=== PATIENT | female | born 1950 | race Caucasian/White ===

== ENCOUNTER → 2016-06-29 | Outpatient (CLI) | payer MEDICARE, OTHER ==
[~2016-06-29] MED LIST: AMLO10TA2 PO; ASPI-808 PO; ATEN50TA PO; COLC0.6T56 PO; FLUT1DIS26 IH; FURO10VI IV; LEVO75TA6 PO; LISI1TAB10 PO; METO-272 PO; METO-274 PO; NAPR500T3 PO; POTA-53 PO; RT-ALBUINH IH; RT-ALBUTEROL SULF 2.5 MG/3 ML PRE-MIX VIAL INH ONE
--- OUTSIDE RECORDS SUMMARY | 2016-06-29 11:52 | XMS REPORT | Continuity of Care Document ---
Author Author [facility] Organization [facility] Address Unknown Phone Unavailable Care Team Providers Care Unit Secy Name Role Phone Khadijah CoreasAmbrocio PCP [phone] Source Comments Some departments are not documenting in the electronic medical record. If you do not see the information that you expected, contact Release of Information in the Health Information Management department at [phone] for further assistance in locating additional records.[facility] Active Allergies and Adverse Reactions Allergen Noted Date Severity Reactions Comments Sulfa (Sulfonamide 11/25/2015 Low SEE COMMENTS Swelling throughout the Antibiotics) body Tetracycline 11/25/2015 Low UNKNOWN Current Medications Prescription Sig. Disp. Refills Start End Date Status Date metoprolol XL (TOPROL XL) Take 100 mg by mouth Active 100 mg tablet daily. metoprolol XL (TOPROL XL) Take 50 mg by mouth Active 50 mg tablet daily. lisinopril/hydrochlorothi Take by mouth daily. Active azide (ZESTORETIC) 20/25 tablet levothyroxine (SYNTHROID) Take 75 mcg by mouth Active 75 mcg tablet daily. furosemide (LASIX) 20 mg Take 20 mg by mouth as Active tablet Needed. potassium chloride SR Take 20 mEq by mouth as Active (K-DUR) 20 mEq tablet Needed. colchicine 0.6 mg tablet Take 0.6 mg by mouth as Active Needed. NAPROXEN PO Take by mouth as Needed. Active aspirin 325 mg tablet Take 325 mg by mouth Active daily. MULTIVITAMIN PO Take by mouth. Active vitamins, B complex tab Take 1 Tab by mouth Active daily. Active Problems Problem Noted Date Brain aneurysm 06/22/2016 Most Recent Encounters Date Type Specialty Providers Description 06/28/2016 Telephone Neurology Troy Cali MD Follow-up Phone Call 06/22/2016 Office Visit Neurosurgery Seun Meade MD Brain aneurysm (Primary Dx) 06/22/2016 Orders Only Neurosurgery Seun Meade MD Brain aneurysm (Primary Dx) 05/12/2016 Orders Only Neurology Troy Cali MD Cerebral aneurysm without rupture (Primary Dx) 05/11/2016 Hospital Radiology Troy Cali MD Encounter Cathy Park RN Hamblet, Lindsey 05/11/2016 Anesthesia Radiology Zahraa Khalil MD Event 04/11/2016 Telephone Radiology Tiffany García RN Social History Tobacco Use Types Packs/Day Years Used Date Current Every Day Smoker Cigarettes 1.5 50 Smokeless Tobacco: Never Used Alcohol Use Drinks/Week oz/Week Comments Yes 0 Standard 0.0 once in a while drinks or equivalent Last Filed Vital Signs Vital Sign Reading Time Taken Blood Pressure 166/71 06/22/2016 12:29 PM [employer] Pulse 55 06/22/2016 12:29 PM [employer] Temperature 37 C (98.6 F) 05/11/2016 9:42 PM [employer] Respiratory Rate - - Height 1.651 m (5' 5") 11/25/2015 8:46 AM CDT Weight 53.524 kg (118 lb) 06/22/2016 12:29 PM [employer] Body Mass Index 19.64 06/22/2016 12:29 PM [employer] Oxygen Saturation 95% 05/11/2016 9:42 PM [employer] Plan of Care Health Maintenance Due Date Last Done Comments Hepatitis C Screening 1950 Physical (Comprehensive) 02/08/1956 Exam Pertussis Vaccine 02/08/1960 Tetanus Vaccine 1966 Breast Cancer Screening 1989 Colorectal Cancer 1999 Screening Shingles Vaccine 2009 Osteoporosis Screening 2014 Prevnar/Pneumovax (#1) 2014 Influenza Vaccine 01/21/2016 Procedures from Last 3 Months Procedure Name Priority Date/Time Associated Diagnosis Comments TELEMETRY STRIPS-SCAN 05/13/2016 Results for this 12:48 PM [employer] procedure are in the results section. Results from Last 3 Months TELEMETRY STRIPS-SCAN (05/13/2016 12:48 PM) Narrative Ordered by an unspecified provider. IR ARTERIOGRAM NEURO (05/11/2016 3:51 PM) Impressions 1.Multi-lobulated, posterior pointing left P-comm artery aneurysm measuring 6.83 mm in height, 6.8 mm in width, and 3.26 mm at the neck. 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 3.Significant atherosclerotic plaquing in the origin of bilateral internal carotid arteries. 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 5.Occlusion of the right common iliac artery with filling of the proximal right lower extremity arteries from lumbar segmental artery collaterals. 6.Significant atherosclerotic disease of the left common iliac and left external iliac arteries. 7.Hypoplastic right A1 artery. I performed this procedure without the involvement of a resident or fellow. Finalized by TROY CALI M.D. on 05/12/2016 11:53 AM. Dictated by TROY CALI M.D. on 05/11/2016 4:27 PM. Narrative Cerebral Angiogram Indication - left P-comm artery aneurysm Procedures Performed 1) Right common carotid artery cervical angiogram. 2) Right common carotid cerebral angiograms x 2. 3) Right common carotid 3D cerebral angiogram. 4) Left common carotid artery cervical angiogram. 5) Left common carotid artery cerebral angiograms x 2. 6) Left common carotid artery 3D cerebral angiogram. 7) Left common femoral artery angiogram. 8) Abdominal aortic angiogram. Referring Physician - All Coreas MD Neurointerventionalist:Troy Cali MD Contrast - 210 cc [id number] Total mGy - 977.9 Anesthesia:conscious sedation Consent -The procedure and its risks, benefits, and alternative treatments were explained to the patient she understood them and she signed the consent form. Clinical History: Ms. Donis is a 66 year old female who was found to have a left P-comm artery aneurysm on a CT angiogram. She is here for a cerebral angiogram to further evaluate these findings. Description of Procedure The patient was brought to the angio suite and placed in supine position on the angio table.Bilateral groins were prepped in a standard sterile fashion. Local anesthesia was obtained with 10 cc of 1% lidocaine.Needle access was achieved into the right common femoral artery but the microwire was unable to be advanced distally. He was assumed that there is occlusion the right common femoral artery; therefore attention was given to the left groin site. Local anesthesia was obtained with 10 cc 1% lidocaine. Following this, a 5 F 25 cm sheath was placed in the left common femoral artery, establishing arterial access. RCCA Technique A 5 [place] 100 cm Vert catheter was advanced over a 150 cm 0.035 [employer] wire over the aortic arch.Due to a type III aortic arch the catheter was initially switched for a APRIL-3 catheter.Again, due to the tortuosity this catheter was switched for a 5 [place] VTK catheter which was advanced into the right common carotid artery under fluoroscopic and roadmap guidance over 260 cm Glidewire Advantage wire.Images of the right cervical carotids were obtained in biplane projections. RCCA Cervical Interpretation The angiogram demonstrated normal flow through the cervical carotids with no evidence of significant tortuosity. Significant atherosclerotic ulcerated plaque is noted in the proximal right internal carotid artery with no evidence of significant stenosis. While catheterizing the right common carotid artery it was noted that she has a type III aortic arch. RCCA Cerebral Interpretation So as not to traverse the atherosclerotic plaque the right anterior intracranial circulation was visualized from a right common carotid artery angiogram in biplane projections. The angiogram demonstrated normal antegrade flow into the right middle cerebral artery territory. Less robust flow is seen into the right anterior cerebral artery circulation due to a hypoplastic right A1 artery.A right MCA aneurysm is seen measuring 3.22 mm at the neck and 1.88 mm height, with the inferior M2 artery incorporated into the neck of the aneurysm.Significant tortuosity is noted in the laceral and cavernous segments of the right internal carotid artery.The capillary and venous phases are unremarkable. RCCA 3D Angiogram Technique The catheter was attached to the contrast power injector and a right common carotid artery 3D cerebral angiogram was performed. RCCA 3D Angiogram Interpretation The angiogram demonstrated a right MCA aneurysm measuring 3.22 mm at the neck and 1.88 mm height, with the inferior M2 artery incorporated into the neck of the aneurysm. LCCA Technique The catheter was withdrawn out of the right common carotid artery and the left common carotid artery.Due to a bovine, type 3 aortic arch arch this catheter was exchanged for Sim-1 catheter which was shaped under fluoroscopic guidance in the descending aorta. Due to the severe tortuosity the catheter was only able to be advanced into the mid left common carotid artery despite using multiple wires.Images of the left cervical carotids were obtained in biplane projections. LCCA Cervical Interpretation The angiogram demonstrated normal flow through the cervical carotids. Significant atherosclerotic ulcerative plaque is noted in the proximal left internal carotid artery with significant stenosis noted in the chandu-laceral segment. LCCA Cerebral Interpretation Due to the significant tortuosity the catheter was unable to be advanced into the left internal carotid artery; therefore, the left anterior intracranial circulation was visualized from a left common carotid artery angiogram in biplane projections.The angiogram demonstrated normal antegrade flow into the left middle and bilateral anterior cerebral arteries.A multi-lobulated, posterior pointing left P-comm artery aneurysm is seen measuring 6.83 mm in height, 6.8 mm in width, and 3.26 mm at the neck.Atherosclerotic irregularity is noted in the proximal cavernous segment of the left internal carotid artery.The capillary and venous phases are unremarkable. LCCA 3D Angiogram Technique The catheter was attached to the contrast power injector and a left common carot id artery 3D cerebral angiogram was performed. LCCA 3D Angiogram Interpretation The angiogram demonstrated a multi-lobulated, posterior pointing left P-comm artery aneurysm measuring 6.83 mm in height, 6.8 mm in width, and 3.26 mm at the neck. After reviewing the final images, the catheter was removed and a left common femoral artery angiogram was performed.The angiogram demonstrated the access site at the level of the bifurcation.The catheter is partially occlusiveand significant atherosclerotic disease is seen in the left external iliac artery; therefore, hemostasis was achieved using manual pressure for 20 minutes. Abdominal Aorta Angiogram Technique The sheath was advanced over the wire and an abdominal aortic angiogram was performed in the anterior projection. Abdominal Aorta Angiogram Interpretation The angiogram demonstrated significant atherosclerotic disease in the left common iliac artery and left external iliac artery. Occlusion of the right common iliac artery is seen with filling of the right lower extremity arterial flow from lumbar segmental artery collaterals. The patient was transported to the recovery unit in stable clinical and hemodynamic conditions. Complications - none immediate Procedure Note Interface, Radiant Results - Tiffany May 12, 2016 11:56 AM [employer] Cerebral Angiogram Indication - left P-comm artery aneurysm Procedures Performed 1) Right common carotid artery cervical angiogram. 2) Right common carotid cerebral angiograms x 2. 3) Right common carotid 3D cerebral angiogram. 4) Left common carotid artery cervical angiogram. 5) Left common carotid artery cerebral angiograms x 2. 6) Left common carotid artery 3D cerebral angiogram. 7) Left common femoral artery angiogram. 8) Abdominal aortic angiogram. Referring Physician - All Coreas MD Neurointerventionalist: Troy Cali MD Contrast - 210 cc [id number] Total mGy - 977.9 Anesthesia: conscious sedation Consent - The procedure and its risks, benefits, and alternative treatments were explained to the patient she understood them and she signed the consent form. Clinical History: Ms. Donis is a 66 year old female who was found to have a left P-comm artery aneurysm on a CT angiogram. She is here for a cerebral angiogram to further evaluate these findings. Description of Procedure The patient was brought to the angio suite and placed in supine position on the angio table. Bilateral groins were prepped in a standard sterile fashion. Local anesthesia was obtained with 10 cc of 1% lidocaine. Needle access was achieved into the right common femoral artery but the microwire was unable to be advanced distally. He was assumed that there is occlusion the right common femoral artery; therefore attention was given to the left groin site. Local anesthesia was obtained with 10 cc 1% lidocaine. Following this, a 5 F 25 cm sheath was placed in the left common femoral artery, establishing arterial access. RCCA Technique A 5 [place] 100 cm Vert catheter was advanced over a 150 cm 0.035 [employer] wire over the aortic arch. Due to a type III aortic arch the catheter was initially switched for a APRIL-3 catheter. Again, due to the tortuosity this catheter was switched for a 5 [place] VTK catheter which was advanced into the right common carotid artery under fluoroscopic and roadmap guidance over 260 cm Glidewire Advantage wire. Images of the right cervical carotids were obtained in biplane projections. RCCA Cervical Interpretation The angiogram demonstrated normal flow through the cervical carotids with no evidence of significant tortuosity. Significant atherosclerotic ulcerated plaque is noted in the proximal right internal carotid artery with no evidence of significant stenosis. While catheterizing the right common carotid artery it was noted that she has a type III aortic arch. RCCA Cerebral Interpretation So as not to traverse the atherosclerotic plaque the right anterior intracranial circulation was visualized from a right common carotid artery angiogram in biplane projections. The angiogram demonstrated normal antegrade flow into the right middle cerebral artery territory. Less robust flow is seen into the right anterior cerebral artery circulation due to a hypoplastic right A1 artery. A right MCA aneurysm is seen measuring 3.22 mm at the neck and 1.88 mm height, with the inferior M2 artery incorporated into the neck of the aneurysm. Significant tortuosity is noted in the laceral and cavernous segments of the right internal carotid artery. The capillary and venous phases are unremarkable. RCCA 3D Angiogram Technique The catheter was attached to the contrast power injector and a right common carotid artery 3D cerebral angiogram was performed. RCCA 3D Angiogram Interpretation The angiogram demonstrated a right MCA aneurysm measuring 3.22 mm at the neck and 1.88 mm height, with the inferior M2 artery incorporated into the neck of the aneurysm. LCCA Technique The catheter was withdrawn out of the right common carotid artery and the left common carotid artery. Due to a bovine, type 3 aortic arch arch this catheter was exchanged for Sim-1 catheter which was shaped under fluoroscopic guidance in the descending aorta. Due to the severe tortuosity the catheter was only able to be advanced into the mid left common carotid artery despite using multiple wires. Images of the left cervical carotids were obtained in biplane projections. LCCA Cervical Interpretation The angiogram demonstrated normal flow through the cervical carotids. Significant atherosclerotic ulcerative plaque is noted in the proximal left internal carotid artery with significant stenosis noted in the chandu-laceral segment. LCCA Cerebral Interpretation Due to the significant tortuosity the catheter was unable to be advanced into the left internal carotid artery; therefore, the left anterior intracranial circulation was visualized from a left common carotid artery angiogram in biplane projections. The angiogram demonstrated normal antegrade flow into the left middle and bilateral anterior cerebral arteries. A multi-lobulated, posterior pointing left P-comm artery aneurysm is seen measuring 6.83 mm in height, 6.8 mm in width, and 3.26 mm at the neck. Atherosclerotic irregularity is noted in the proximal cavernous segment of the left internal carotid artery. The capillary and venous phases are unremarkable. LCCA 3D Angiogram Technique The catheter was attached to the contrast power injector and a left common carotid artery 3D cerebral angiogram was performed. LCCA 3D Angiogram Interpretation The angiogram demonstrated a multi-lobulated, posterior pointing left P-comm artery aneurysm measuring 6.83 mm in height, 6.8 mm in width, and 3.26 mm at the neck. After reviewing the final images, the catheter was removed and a left common femoral artery angiogram was performed. The angiogram demonstrated the access site at the level of the bifurcation. The catheter is partially occlusive and significant atherosclerotic disease is seen in the left external iliac artery; therefore, hemostasis was achieved using manual pressure for 20 minutes. Abdominal Aorta Angiogram Technique The sheath was advanced over the wire and an abdominal aortic angiogram was performed in the anterior projection. Abdominal Aorta Angiogram Interpretation The angiogram demonstrated significant atherosclerotic disease in the left common iliac artery and left external iliac artery. Occlusion of the right common iliac artery is seen with filling of the right lower extremity arterial flow from lumbar segmental artery collaterals. The patient was transported to the recovery unit in stable clinical and hemodynamic conditions. Complications - none immediate IMPRESSION 1. Multi-lobulated, posterior pointing left P-comm artery aneurysm measuring 6.83 mm in height, 6.8 mm in width, and 3.26 mm at the neck. 2. 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 3. Significant atherosclerotic plaquing in the origin of bilateral internal carotid arteries. 4. 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 5. Occlusion of the right common iliac artery with filling of the proximal right lower extremity arteries from lumbar segmental artery collaterals. 6. Significant atherosclerotic disease of the left common iliac and left external iliac arteries. 7. Hypoplastic right A1 artery. I performed this procedure without the involvement of a resident or fellow. Finalized by TROY CALI M.D. on 05/12/2016 11:53 AM. Dictated by TROY CALI M.D. on 05/11/2016 4:27 PM.
== END ==
LOC: RT 11:48
PROVIDERS: ATTEND Nurse Practitioner Family
DX: R06.00 Dyspnea, unspecified (principal); J44.9 Chronic obstructive pulmonary disease, unspecified; Z72.0 Tobacco use
CPT/HCPCS: 94060; 94640; 94726; 94729

== ENCOUNTER → 2017-06-19 | Outpatient (CLI) | payer MEDICARE, OTHER ==
[~2017-06-19] MED LIST changes: -METO-272 PO; -METO-274 PO; +METO-370 PO; +METO-395 PO; -NAPR500T3 PO; +NAPR500T4 PO; -RT-ALBUTEROL SULF 2.5 MG/3 ML PRE-MIX VIAL INH ONE
--- NOTE | 2017-06-19 09:56 | Diagnostic Imaging Report ---
INDICATION: History of smoking. Screening exam. COMPARISON: 07/07/2015 TECHNIQUE: Noncontrast low-dose CT of the chest was performed. FINDINGS: Evaluation of the lung cates demonstrates mild to moderate scattered areas of air-trapping consistent with background of COPD. There is no focal consolidation, pleural effusion, nor pneumothorax. Mild scarring and/or atelectasis is noted within both lung bases. There is faint 2 mm micronodule within the medial margins of the superior segment of the left lower lobe (image 118, series 4). This however appears to be stable when compared to 07/07/2015 (image 65, series 4). No other pulmonary nodules or masses are identified. Cardiomediastinal structures are suboptimally evaluated secondary to low dose noncontrast nature of the exam. There is however marked calcified aortic and coronary calcified atherosclerosis. Heart size is within normal limits. There is no large pericardial effusion. No pathologically enlarged or morphologically abnormal adenopathy is seen within the mediastinum, amita, nor axilla on this exam. Bony structures show age-related degenerative changes. No acute abnormalities are seen. Included portion of the upper abdomen are unremarkable as well. IMPRESSION: 1. Single small micronodule within the superior segment of the left upper lobe. Again, this is stable compared to 07/07/2015. Continued annual screening with low-dose CT chest is recommended. 2. Severe calcified aortic and coronary atherosclerosis. 3. Background of mild to moderate emphysematous disease. LungRads category: 2S MODIFIER: Severe calcified aortic and coronary atherosclerosis. OTHER SIGNIFICANT FINDINGS: As above. Dictated by: Dictated on workstation # [id number]
== END ==
LOC: RAD 08:04
PROVIDERS: ATTEND Nurse Practitioner Family
DX: Z12.2 Encounter for screening for malignant neoplasm of respiratory organs (principal); I25.10 Atherosclerotic heart disease of native coronary artery without angina pectoris; I70.0 Atherosclerosis of aorta; Z87.891 Personal history of nicotine dependence

== ENCOUNTER → 2019-09-07 | Outpatient (CLI) | payer OTHER, MEDICARE ==
[~2019-09-07] MED LIST changes: -AMLO10TA2 PO; +AMLO10TA7 PO; -LISI1TAB10 PO; +LISI1TAB26 PO; -METO-370 PO; -METO-395 PO; +METO50TA7 PO; +MTP100TCR PO; +NAPR-915 PO; -NAPR500T4 PO
== END ==
LOC: LABNPT 08:33
DX: Z01.89 Encounter for other specified special examinations (principal)
CPT/HCPCS: 84145

== ENCOUNTER 2021-07-24 12:49 | Inpatient (IN) | payer MEDICARE, OTHER ==
[~2021-07-24] VITALS: Ht 170 cm; Wt 58.7 kg
[~2021-07-24 12:49] MED LIST changes: +AMLO-251 PO; -AMLO10TA7 PO; -COLC0.6T56 PO; +COLC0.6T59 PO; -LISI1TAB26 PO; +LISI1TAB48 PO
[2021-07-24] MEDS ORDERED: ONDANSETRON 4 MG (ZOFRAN) ORAL DISSOLVE TAB PO PRN (13:15)
[2021-07-24] MEDS ORDERED: diphenhydrAMINE 50 MG/ML INJ (BENADRYL) IVP PRN (13:15)
[2021-07-24] MEDS ORDERED: HALOPERIDOL 5 MG/ML (HALDOL) VIAL IM PRN (13:15)
[2021-07-24] MEDS ORDERED: MILK OF MAGNESIA 400 MG/5 ML 30 ML UDC PO PRN (13:15)
[2021-07-24] MEDS ORDERED: LORazepam 1 MG (ATIVAN) TAB PO PRN (13:15)
[2021-07-24] MEDS ORDERED: LORazepam INJ 2 MG/ML (ATIVAN) VIAL IM/IV PRN (13:15)
[2021-07-24] MEDS ORDERED: CALCIUM CARBONATE 500 MG (TUMS) TAB.CHEW PO PRN (13:15)
[2021-07-24] MEDS ORDERED: BISACODYL 10 MG SUPP (DULCOLAX) PR PRN (13:15)
[2021-07-24] MEDS ORDERED: D5 1/2 NS 1000 ML IV SOLUTION 1,000 ML IV PRN (13:15)
[2021-07-24] MEDS ORDERED: ACETAMINOPHEN 325 MG TABLET PO PRN (13:15)
[2021-07-24] MEDS ORDERED: 1/2 NS IV SOLUTION 1,000 ML IV PRN (13:15)
[2021-07-24] MEDS ORDERED: ANTACID SUSP 30 ML UDC (MYLANTA) PO PRN (13:15)
[2021-07-24] MEDS ORDERED: LACTULOSE SYRUP 10GM/15ML (ENULOSE) 30ML UDC PO PRN (13:15)
[2021-07-24] MEDS ORDERED: diphenhydrAMINE 25 MG TAB (BENADRYL) PO PRN (13:15)
[2021-07-24] MEDS ORDERED: MELATONIN 3 MG TABLET PO PRN (13:15)
[2021-07-24] MEDS ORDERED: ONDANSETRON 4 MG/2 ML (SDV) Z0FRAN IV PRN (13:15)
[2021-07-24] MEDS ORDERED: polyethylene glycoL POWDER 17 GM (MIRALAX) PACK PO PRN (13:15)
[2021-07-24] MEDS ORDERED: NS IV 1000 ML 1,000 ML ONE (14:57)
[2021-07-24] MEDS ORDERED: NS IV 1000 ML 1,000 ML IV SCH (15:00)
--- NOTE | 2021-07-24 15:10 | Tele-ICU Consult ---
History of Present Illness History of Present Illness Date Seen by Provider: Jul 24, 2021 Time Seen by Provider: 14:40 Date of Admission This virtual visit was conducted using real time audio/video. Thank you for asking us to see this patient for respiratory insufficiency due to COPD. Admitted w Afib/RVR PMH: COPD, CAD/NSTEMI, HTN, Gout. SH: smoking history Y FH: Non-contributory ROS: limited by patient's clinical condition, but PE: [id number] 73/47. O2 sat 97% on NC HEENT: No obvious masses, adenopathy or JVD. Chest: clear to auscultation. CV: Irreg S1 S2 No murmur or added sounds. Abd: Non-tender. Bowel sounds Y. : Unremarkable. [place] . [employer]OCIATE/psychiatric: Grossly intact. No obvious focal findings. Extremities: No edema. Capillary refill < 3 seconds. Skin: unremarkable. Results: None currently available. Available chart/ vitals / labs / images reviewed. Video assessment done using teleICU camera, rest of exam as per RN. A/P: Respiratory insufficiency: Continue present management with Advair, NC, duonebs, Medrol. Monitor for increasing oxygenation needs and/or need for intubation. Critical Care: critically ill patient. Cont. IV Diltiazem, abx, Angy. Bolus 1 L NS for low BP. To receive a CVC. Discussed with SHIRLEY Nino. Asked RN to reach out to eICU if any questions or concerns later. Time spent with patient/coordination of care with other health professionals (mins): 30 Allergies and Home Medications Allergies Coded Allergies: Sulfa (Sulfonamide Antibiotics) (Verified Allergy, Unknown, 07/07/15) Tetracyclines (Verified Allergy, Unknown, 07/07/15) Home Medications Albuterol Sulfate 8.5 Gm Hfa.aer.ad, 8.5 GM IH PRN 2 puffs every 4hrs as needed for SOB Prescribed by: CHELSIE ALEGRE on 07/13/15 0833 Aspirin 325 Mg Tablet, 325 MG PO DAILY, (Reported) Colchicine 0.6 Mg Tablet, PO UD PRN for GOUT PAIN, (Reported) TAKES 2 (0.6MG) TABLETS AT ONSET OF FLARE UP THEN TAKES 1 (0.6MG) TABLET EVERY 12 HOURS UNTIL RESOLVED. Fluticasone/Salmeterol 1 Each Blst.w.dev, 1 EACH IH BID Prescribed by: CHELSIE ALEGRE on 07/13/15 0832 Furosemide 10 Mg/1 Ml Vial, 20 MG IV DAILY@07,17 Prescribed by: TRES GASCA on 07/13/15 08 Levothyroxine Sodium 75 Mcg Tablet, 75 MCG PO DAILY, (Reported) Lisinopril/Hydrochlorothiazide 1 Each Tablet, 1 TAB PO DAILY, (Reported) Metoprolol Succinate 100 Mg Tab.er.24h, 150 MG PO DAILY Prescribed by: TRES GASCA on 07/13/15827 Potassium Chloride 20 Meq Tablet.er, 20 MEQ PO DAILY Prescribed by: TRES GASCA on 07/13/15827 Past Medical/Social/Family Hx Immunizations Up To Date Influenza Vaccine Up-to-Date: No; Not Current Current Status Communicates: Verbally Primary Language: Iranian Preferred Spoken Language: Iranian Is interpretation needed?: No Review of Systems Constitutional: see HPI EENTM: see HPI Respiratory: see HPI Cardiovascular: see HPI Gastrointestinal: see HPI Genitourinary: see HPI Musculoskeletal: see HPI Skin: see HPI Psychiatric/Neurological: See HPI All Other Systems Reviewed Negative Unless Noted: Yes Focused Exam Height, Weight, BMI Height: 5'67.00" Weight: 131lbs. 2.0oz. 59.046605uj; 18.33 BMI Method: Exam Exam Patient acknowledged, consented, and participated in this virtual visit which was conducted using real time audio/video Vital Signs Date Time Temp Pulse Resp B/P (MAP) Pulse Ox O2 Delivery O2 Flow Rate FiO2 07/24/21 14:54 36.8 130 17 83/70 96 Nasal Cannula 5.00 Height & Weight Height: 5'67.00" Weight: 131lbs. 2.0oz. [id number]; 18.33 BMI Method: General Appearance: Mild Distress (See free text) Respiratory: Decreased Breath Sounds Capillary Refill: Less Than 3 Seconds Peripheral Pulses: 1+ Dorsalis Pedis (R), 1+ Left Dors-Pedis (L) Assessment/Plan Assessment/Plan See free text Critical Care: Critically Ill Patient JUAN DIEGO STATON MD Jul 24, 2021 15:10
[2021-07-24 15:12] LABS: BASOPHILS % (AUTO) 0 % (0-10); EOSINOPHILS % (AUTO) 0 % (0-10); HEMATOCRIT 27 % (35-52); HEMOGLOBIN 8.7 g/dL (11.5-16.0); LYMPHOCYTES # (AUTO) 1.1 X 10^3 (1.0-4.0); LYMPHOCYTES % (AUTO) 12 % (12-44); MEAN CORPUSCULAR HEMOGLOBIN 31 pg (25-34); MEAN CORPUSCULAR HGB CONC 33 g/dL (32-36); MEAN CORPUSCULAR VOLUME 95 fL (80-99); MEAN PLATELET VOLUME 9.9 fL (9.0-12.2); MONOCYTES # (AUTO) 0.6 X 10^3 (0.0-1.0); MONOCYTES % (AUTO) 7 % (0-12); NEUTROPHILS # (AUTO) 7.4 X 10^3 (1.8-7.8); NEUTROPHILS % (AUTO) 81 % (42-75); PLATELET COUNT 182 10^3/uL (130-400); WHITE BLOOD COUNT 9.2 10^3/uL (4.3-11.0)
[2021-07-24] MEDS: dilTIAZem DRIP PRE-MIX 125 ML IV SCH ×2 (15:29→23:52)
[2021-07-24 15:30] LABS: ALBUMIN 2.9 GM/DL (3.2-4.5); CHLORIDE 99 MMOL/L (98-107); POTASSIUM 3.3 MMOL/L (3.6-5.0); SODIUM 134 MMOL/L (135-145)
[2021-07-24 15:31] LABS: CALCIUM 8.4 MG/DL (8.5-10.1)
[2021-07-24 15:32] LABS: GLUCOSE 106 MG/DL (70-105); TOTAL PROTEIN 5.3 GM/DL (6.4-8.2)
[2021-07-24 15:33] LABS: CARBON DIOXIDE 23 MMOL/L (21-32)
[2021-07-24 15:34] LABS: BILIRUBIN,TOTAL 0.6 MG/DL (0.1-1.0)
[2021-07-24 15:35] LABS: ALKALINE PHOSPHATASE 56 U/L (40-136)
[2021-07-24 15:36] LABS: CREATININE SERUM 0.52 MG/DL (0.60-1.30); GFR ESTIMATED 99
[2021-07-24 15:37] LABS: BUN/CREATININE RATIO 13
[2021-07-24 15:39] LABS: ALANINE AMINOTRANSFERASE 14 U/L (0-55)
[2021-07-24] MEDS: ENOXAPARIN 60 MG/0.6 ML (LOVENOX) SYR SC SCH (15:45)
--- NOTE | 2021-07-24 16:10 | Progress Note-Post Operative ---
Post-Operative Progess Note Surgeon (s)/Director Of Laboratory Operations (s) Surgeon DEEPTI FORD DO Director Of Laboratory Operations: none Pre-Operative Diagnosis Venous insufficiency, SVT Post-Operative Diagnosis same Procedure & Operative Findings Date of Procedure 07/24/21 Procedure Performed/Findings Central Line -Triple lumen catheter The patient was in their bed in the ICU, was prepped and draped in the sterile fashion. A surgical pause was performed. Ultrasound was used to locate the internal jugular vein. Lidocaine was injected over the vein and an 18 gauge finder needle was advanced while watching with the US; the left internal jugular vein was accessed. Dark nonpulsatile blood was withdrawn. The wire was inserted. Fluoroscopy assured proper placement. The needle was removed. A [#11] blade scalpel was used to make a stab incision along the guidewire. Dilator sheath was then advanced over the wire using Seldinger technique and the dilator was removed. The Groshong catheter was inserted over the guide wire using the Seldinger technique. The Groshong wire was removed. The catheter was then accessed in all three ports without difficulty. Good flash of blood was seen and it was then flushed with saline. The catheter was sutured in place with 3-0 silk on a yesi needle. The areas were then washed and dried. Sterile dressing was placed over incision. The patient tolerated the procedure well without complication. Anesthesia Type local lidocaine Estimated Blood Loss Estimated blood loss (mL): scant Specimens/Packing Specimens Removed DEEPTI Michael DO Jul 24, 2021 16:10
[2021-07-24] MEDS: LORazepam INJ 2 MG/ML (ATIVAN) VIAL IV PRN (16:13)
[2021-07-24] MEDS: NS IV 1000 ML 1,000 ML IV SCH (16:15)
[2021-07-24] MEDS ORDERED: DIGOXIN 0.25 MG/ML (LANOXIN) 2 ML AMP ONE (16:15)
--- NOTE | 2021-07-24 16:17 | Consultation - Surgery ---
History of Present Illness History of Present Illness Patient Consulted On(donna/time) 07/24/21 16:11 Time Seen by Provider: 15:02 History of Present Illness Pt is a 71 yo female who was transferred to ICU from [place]. She was transferred for cardiac issues; I was told SVT but may have been Afib with RVR. Unable to get good IV access and she was going to need multiple meds. Surgery asked to place central line. Allergies and Home Medications Allergies Coded Allergies: Sulfa (Sulfonamide Antibiotics) (Verified Allergy, Unknown, 07/07/15) Tetracyclines (Verified Allergy, Unknown, 07/07/15) Patient Home Medication List Home Medication List Reviewed: Yes Albuterol Sulfate (Proair Hfa) 8.5 Gm Hfa.aer.ad, 8.5 GM IH PRN Prescribed by: CHELSIE ALEGRE on 07/13/15 0833 Aspirin (Aspirin) 325 Mg Tablet, 325 MG PO DAILY, (Reported) Entered as Reported by: RAFAEL SMALL on 07/08/15 0332 Colchicine (Colchicine) 0.6 Mg Tablet, PO UD PRN for GOUT PAIN, (Reported) Entered as Reported by: DAYTON MARQUES on 07/08/15 1121 Fluticasone/Salmeterol (Advair 250-50 Diskus) 1 Each Blst.w.dev, 1 EACH IH BID Prescribed by: CHELSIE ALEGRE on 07/13/15 0832 Furosemide (Furosemide) 10 Mg/1 Ml Vial, 20 MG IV DAILY@,17 Prescribed by: TRES GASCA on 07/13/15 0828 Levothyroxine Sodium (Levothyroxine Sodium) 75 Mcg Tablet, 75 MCG PO DAILY, (Reported) Entered as Reported by: RAFAEL SMALL on 07/08/15 033 Lisinopril/Hydrochlorothiazide (Lisinopril-Hctz 20-25 mg Tab) 1 Each Tablet, 1 TAB PO DAILY, (Reported) Entered as Reported by: RAFAEL SMALL on 07/08/15 0332 Metoprolol Succinate (Metoprolol Succinate) 100 Mg Tab.er.24h, 150 MG PO DAILY Prescribed by: TRES GASCA on 07/13/15 0828 Potassium Chloride (K-Tab ER) 20 Meq Tablet.er, 20 MEQ PO DAILY Prescribed by: TRES GASCA on 07/13/15 0828 Past Ucexpex-Ppuudg-Nrszif Hx Patient Social History Smoking Status: Current Everyday Smoker Type Used: Cigarettes Alcohol Use?: No Surgeries History of Surgeries: Yes Respiratory History of Respiratory Disorde: Yes Respiratory Disorders: COPD Cardiovascular History of Cardiac Disorders: Yes Cardiac Disorders: Atrial Fibrillation, Hypertension, Palpitations Neurological History of Neurological Disord: No Reproductive System Hx Reproductive Disorders: No Musculoskeletal History of Musculoskeletal Dis: Yes Musculoskeletal Disorders: Arthritis, Gout Endocrine History of Endocrine Disorders: Yes Endocrine Disorders: Hypothyroidsim HEENT Hearing Impairment: Hard of Hearing Cancer History of Cancer: No Blood Transfusions Adverse Reaction to a Blood Tr: No Reviewed Nursing Assessment Reviewed/Agree w Nursing PMH: No Family Medical History Significant Family History: No Pertinent Family Hx Family Medial History: Patient reports no known family medical history. Review of Systems-General Constitutional: malaise, weakness EENTM: mouth pain, mouth swelling Respiratory: dyspnea on exertion; No hemoptysis Cardiovascular: No chest pain; palpitations Gastrointestinal: No dysphagia, No hematemesis Musculoskeletal: gout, joint pain, joint swelling Physical Exam-General Problems Physical Exam Vital Signs Vital Signs - First Documented 07/24/21 14:54 Temp 36.8 Pulse 130 Resp 17 B/P (MAP) 83/70 Pulse Ox 96 O2 Delivery Nasal Cannula O2 Flow Rate 5.00 Capillary Refill : Less Than 3 Seconds General Appearance: WD/WN, mild distress Eyes: Bilateral Eye PERRL, Bilateral Eye EOMI HEENT: pharynx normal Neck: supple Respiratory: lungs clear, no respiratory distress, no accessory muscle use, crackles Cardiovascular: no murmur, tachycardia, irregularly irregular Gastrointestinal: soft, no organomegaly, no pulsatile mass Back: no CVA tenderness, no vertebral tenderness Extremities: no pedal edema, no calf tenderness Neurologic/Psychiatric: mink slicer II-XII nml as tested, alert, oriented x 3 Skin: normal color, warm/dry Data Review Labs Laboratory Tests 07/24/21 15:00: White Blood Count 9.2, Red Blood Count 2.82L, Hemoglobin 8.7L, Hematocrit 27L, Mean Corpuscular Volume 95, Mean Corpuscular Hemoglobin 31, Mean Corpuscular Hemoglobin Concent 33, Red Cell Distribution Width 15.0H, Platelet Count 182, Mean Platelet Volume 9.9, Immature Granulocyte % (Auto) 0, Neutrophils (%) (Au to) 81H, Lymphocytes (%) (Auto) 12, Monocytes (%) (Auto) 7, Eosinophils (%) (Auto) 0, Basophils (%) (Auto) 0, Neutrophils # (Auto) 7.4, Lymphocytes # (Auto) 1.1, Monocytes # (Auto) 0.6, Eosinophils # (Auto) 0.0, Basophils # (Auto) 0.0, Immature Granulocyte # (Auto) 0.0, Sodium Level 134L, Potassium Level 3.3L, Chloride Level 99, Carbon Dioxide Level 23, Anion Gap 12, Blood Urea Nitrogen 7, Creatinine 0.52L, Estimat Glomerular Filtration Rate 99, BUN/Creatinine Ratio 13, Glucose Level 106H, Lactic Acid Level 1.03, Calcium Level 8.4L, Corrected Calcium 9.3, Total Bilirubin 0.6, Aspartate Amino Transf (AST/SGOT) 22, Alanine Aminotransferase (ALT/SGPT) 14, Alkaline Phosphatase 56, Troponin I < 0.028, B- Type Natriuretic Peptide 594.2H, Total Protein 5.3L, Albumin 2.9L, Procalcitonin 21.81H Assessment/Plan Assessment/Plan Assessment/Plan Venous Insufficiency Afib with RVR Plan for central line. DEEPTI FORD DO Jul 24, 2021 16:16
[2021-07-24] MEDS ORDERED: DIGOXIN 0.25 MG/ML (LANOXIN) 2 ML AMP IV ONE (16:30)
[2021-07-24] MEDS ORDERED: DIGOXIN IMMUNE FAB IV ONE (16:30)
--- NOTE | 2021-07-24 16:30 | Diagnostic Imaging Report ---
Indication: Central line placement, pneumonia. Comparison: 07/09/2015. Discussion: Single view of the chest was obtained. Left-sided central venous catheter tip in the SVC. Mild cardiomegaly is stable. Small bilateral pleural effusions. Consolidation noted within the right midlung and bilateral lung bases consistent with pneumonia. No pneumothorax. No osseous abnormality. Impression: 1. Left internal jugular vein central venous catheter with tip in the SVC. No pneumothorax. 2. Bilateral consolidation consistent with pneumonia. 3. Small effusions. Dictated by: Dictated on workstation # [id number]
[2021-07-24] MEDS: DexMEDEtomidine 250 ML DRIP 250 ML IV SCH (16:35)
[2021-07-24] MEDS ORDERED: meTOprolol 5 MG/5 ML (LOPRESSOR) VIAL ONE (16:36)
[2021-07-24] MEDS ORDERED: VANCOMYCIN 1 GM/NS 250 ML IVPB IV ONE ×2 (17:00)
[2021-07-24] MEDS ORDERED: VANCOMYCIN INJECTION 0.1 MG in NS (IVPB) 250 ML IV SCH (17:00)
[2021-07-24] MEDS: meTOprolol 5 MG/5 ML (LOPRESSOR) VIAL IV PRN (17:03)
--- NOTE | 2021-07-24 17:30 | Consultation-Cardiology ---
HPI-Cardiology Cardiology Consultation: Date of Consultation 07/24/21 Time Seen by a Provider: 17:00 Date of Admission Attending Physician Maddie Pena DO Admitting Physician All Coreas MD Consulting Physician MANNIE PILLAI MD, MA, FACP, FACC, FSCAI, CCDS Physician requesting consult: Dr Pena HPI: Chief Complaint: Reason for Card consult: A Fib with RVR 71 yo woman transferred by Dr Pena from [place] to [facility] treatment of pneumonia, confusion, agitation, and A Fib with RVR. She is confused and intermittently agitated and unable to provide a history or review of systems Review of Systems-Cardiology Review of Systems Constitutional: other (She is confused and intermittently agitated and unable to provide a history or review of systems) All Other Systems Reviewed Negative Unless Noted: Yes PVW-Ucbomf-Jwrjrr Hx Patient Social History Smoking Status: Current Everyday Smoker Alcohol Use?: No Past Medical History PMH As described under Assessment. Family Medical History Family History: Patient reports no known family medical history. Allergies and Home Medications Allergies Coded Allergies: Sulfa (Sulfonamide Antibiotics) (Verified Allergy, Unknown, 07/07/15) Tetracyclines (Verified Allergy, Unknown, 07/07/15) Patient Home Medication List Home Medication List Reviewed: Yes Albuterol Sulfate (Proair Hfa) 8.5 Gm Hfa.aer.ad, 8.5 GM IH PRN Prescribed by: CHELSIE AELGRE on 07/13/15 0833 Aspirin (Aspirin) 325 Mg Tablet, 325 MG PO DAILY, (Reported) Entered as Reported by: RAFAEL SMALL on 07/08/15 0332 Colchicine (Colchicine) 0.6 Mg Tablet, PO UD PRN for GOUT PAIN, (Reported) Entered as Reported by: DAYTON MARQUES on 07/08/15 1121 Fluticasone/Salmeterol (Advair 250-50 Diskus) 1 Each Blst.w.dev, 1 EACH IH BID Prescribed by: CHELSIE ALEGRE on 07/13/15 0832 Furosemide (Furosemide) 10 Mg/1 Ml Vial, 20 MG IV DAILY@ Prescribed by: TRES REED on 07/13/15 0828 Levothyroxine Sodium (Levothyroxine Sodium) 75 Mcg Tablet, 75 MCG PO DAILY, (Reported) Entered as Reported by: RAFAEL SMALL on 07/08/15331 Lisinopril/Hydrochlorothiazide (Lisinopril-Hctz 20-25 mg Tab) 1 Each Tablet, 1 TAB PO DAILY, (Reported) Entered as Reported by: RAFAEL SMALL on 07/08/15331 Metoprolol Succinate (Metoprolol Succinate) 100 Mg Tab.er.24h, 150 MG PO DAILY Prescribed by: TRES REED on 07/13/15827 Potassium Chloride (K-Tab ER) 20 Meq Tablet.er, 20 MEQ PO DAILY Prescribed by: TRES REED on 07/13/15827 Physical Exam-Cardiology Physical Exam Vital Signs/I&O 07/24/21 07/24/21 07/24/21 07/24/21 14:54 15:00 15:08 15:51 Temp 36.8 Pulse 130 115 138 Resp 17 15 B/P (MAP) 83/70 73/47 Pulse Ox 96 98 94 O2 Delivery Nasal Cannula Nasal Cannula Nasal Cannula O2 Flow Rate 5.00 5.00 5.00 07/24/21 07/24/21 07/24/21 07/24/21 15:58 16:00 16:35 17:00 Temp 36.8 Pulse 154 154 101 Resp 30 19 B/P (MAP) 91/66 91/66 78/56 Pulse Ox 100 95 O2 Delivery Nasal Cannula Nasal Cannula O2 Flow Rate 5.00 5.00 07/24/21 17:01 Pulse 104 Capillary Refill : Less Than 3 Seconds Constitutional: No AAO x 3; well-developed, other (thin appearing) HEENT: PERRL; No xanthelasmas are seen Neck: carotid pulses are 2 + bilaterally Respiratory: No accessory muscle use; other (fair, bilat air entry) Cardiovascular: regular rate-rhythm, S1 and S2, systolic murmur (soft MANINDER at card base) Gastrointestinal: No tender; soft; No guarding, No rebound; audible bowel sounds Extremities: No clubbing, No cyanosis, No significant edema Neurologic/Psychiatric: No oriented x 3; other (moves all limbs equally) Skin: No rash on exposed areas, No ulcerations on exposed areas Data Review Labs Laboratory Tests 07/24/21 15:00: White Blood Count 9.2, Red Blood Count 2.82L, Hemoglobin 8.7L, Hematocrit 27L, Mean Corpuscular Volume 95, Mean Corpuscular Hemoglobin 31, Mean Corpuscular Hemoglobin Concent 33, Red Cell Distribution Width 15.0H, Platelet Count 182, Mean Platelet Volume 9.9, Immature Granulocyte % (Auto) 0, Neutrophils (%) (Auto) 81H, Lymphocytes (%) (Auto) 12, Monocytes (%) (Auto) 7, Eosinophils (%) (Auto) 0, Basophils (%) (Auto) 0, Neutrophils # (Auto) 7.4, Lymphocytes # (Auto) 1.1, Monocytes # (Auto) 0.6, Eosinophils # (Auto) 0.0, Basophils # (Auto) 0.0, Immature Granulocyte # (Auto) 0.0, Sodium Level 134L, Potassium Level 3.3L, Chloride Level 99, Carbon Dioxide Level 23, Anion Gap 12, Blood Urea Nitrogen 7, Creatinine 0.52L, Estimat Glomerular Filtration Rate 99, BUN/Creatinine Ratio 13, Glucose Level 106H, Lactic Acid Level 1.03, Calcium Level 8.4L, Corrected Calcium 9.3, Total Bilirubin 0.6, Aspartate Amino Transf (AST/SGOT) 22, Alanine Aminotransferase (ALT/SGPT) 14, Alkaline Phosphatase 56, Troponin I < 0.028, B- Type Natriuretic Peptide 594.2H, Total Protein 5.3L, Albumin 2.9L, Procalcitonin 21.81H A/P-Cardiology Assessment/Admission Diagnosis Ac exac of COPD due to pneumonia - managed by Dr Pena PAF with RVR Delirium and agitation H/o nonischemic cardiomyopathy with EF 15 percent in 2015, repeat echo done in July 2019 showed ejection fraction 45-50 percent, mild mitral and tricuspid regurgitation, PA pressure of 30 mmHg CAD, mod on card cath of 07/07 H/o hypertension, continue to monitor no changes are recommended H/o hyperlipidemia, intolerant to statin and fenofibrate H/o hypothyroidism H/o tobacco use Moderate carotid artery stenosis, monitored by Dr Reed Cerebral aneurysm-evaluated by Dr. Troy Stewart in [place], underwent cerebral angiogram, reported to have been advised conservative management. No h/o intracranial bleed Discussion and Recomendations * Complex management due to multiple comorbidities * iv dilt and dig for vent rate control * Anticoag for stroke prophylaxis, if approved by Dr Pena * Monitor labs MANNIE PILLAI MD [facility] CCDS Jul 24, 2021 17:30
[2021-07-24] MEDS: HALOPERIDOL 5 MG/ML (HALDOL) VIAL IM PRN (17:51)
[2021-07-24] MEDS: methylPREDNISolone 40 MG/ML (Solu-MEDROL) VIAL IV SCH ×2 (18:17→23:56)
[2021-07-24] MEDS: RT-ALBUTEROL/IPRATROPIUM 3 ML (DUONEB) VIAL INH SCH ×2 (18:26→21:21)
[2021-07-24 18:51] LABS: ABG OXYGEN SATURATION 93 % (94-100); ABG PCO2 36 MMHG (35-45); ABG PH 7.49 (7.37-7.43); ABG PO2 62 MMHG (79-93); ABG TCO2 28.4 MMOL/L (21.0-31.0); ALLENS TEST YES-POS; INSPIRED O2 6%; PATIENT TEMP 37.1; VENTILATOR NO
[2021-07-24 20:24] LABS: BILIRUBIN,URINE NEGATIVE (NEGATIVE); CLARITY,URINE CLEAR; COLOR,URINE YELLOW; GLUCOSE, URINE (UA) NEGATIVE (NEGATIVE); KETONES,URINE NEGATIVE (NEGATIVE); LEUKOCYTE ESTERASE ,URINE NEGATIVE (NEGATIVE); NITRITE,URINE NEGATIVE (NEGATIVE); PROTEIN,URINE TRACE (NEGATIVE)
[2021-07-24 20:29] LABS: BACTERIA,URINE TRACE /HPF
--- NOTE | 2021-07-24 20:29 | History & Physical ---
History of Present Illness HPI/Chief Complaint CC: AF w/RVR with increased hypoxia in midst of ETOH withdrawal HPI: This is a 71yoWF clinic patient of Dorota Calixto NP in [place] who was moved from [facility] med-surg due to abrupt onset of AF RVR and no ICU nursing staff at [facility] so she was moved to [facility] ICU for higher level of care with Cardiology assessment and placed on Lovenox and Cardizem drip. Patient was admitted earlier in the week for weakness and falls and found to have severe metabolic acidosis with lactic acidosis without evidence of sepsis or infection required aggressive IVF and supportive care with CIWA and vitamin supplement due to continued binge alcohol consumption which I confirmed with her PCP after I admitted her to [facility] because she denied any use of alcohol when I directly asked her. Patient continues to smoke and was having increased work of breathing while at [facility] during diagnosis of AF RVR so I suspected PNA so pancultured and placed on empiric HAP treatment of Cefepime and Vanc and checked ABG and started on AECOPD steroid dosing. To note, upon assessment of the patient at [facility] the RN noted she recognized the patient as an ICU patient admitted 08/2019 when she had presented with the same complaints with severe metabolic acidosis and she had denied alcohol use at that time giving rise to a delay of diagnosing ETOH withdrawal at that time EXACTLY the same as this time. I did not have access to the records from 08/2019 during this admit but was able to review my notes after I transferred the patient and noted she was not forthcoming with the alcohol use once again changing the entire medical management plan for her issues. Source: patient Exam Limitations: clinical condition Date Seen 07/24/21 Time Seen by a Provider: 17:00 Attending Physician Maddie Saba Wen-Chou MD Referring Physician Date of Admission Jul 24, 2021 at 14:39 Home Medications & Allergies Home Medications Reviewed patient Home Medication Reconciliation performed by pharmacy medication reconciliations animal technician and/or nursing. Patients Allergies have been reviewed. Allergies Allergies Coded Allergies Sulfa (Sulfonamide Antibiotics) (Verified Allergy, Unknown, 07/07/15) Tetracyclines (Verified Allergy, Unknown, 07/07/15) Past Zxedjde-Lvafog-Kqplhh Hx Past Med/Social Hx: Reviewed Nursing Past Med/Soc Hx, Reviewed and Corrections made Patient Social History Marrital Status: single Employed/Student: retired Alcohol Use: Regular Use Alcohol Beverage of Choice: Beer, Rum, Whiskey, Bailey, Scotch, Wine Recreational Drug Use: No Smoking Status: Current Everyday Smoker Type Used: Cigarettes Past Medical History Respiratory: Pneumonia Cardiac: Atrial Fibrillation, Hypertension, Palpitations Reproductive: No Genitourinary: Bladder Infection Musculoskeletal: Arthritis, Gout Endocrine: Hypothyroidsim Hearing Impairment: Hard of Hearing Adverse Reaction to Blood Prather: No Family History Patient reports no known family medical history. No Pertinent Family Hx Review of Systems Constitutional: see HPI, dizziness, malaise, weakness EENTM: no symptoms reported Respiratory: cough, dyspnea on exertion, short of breath Cardiovascular: no symptoms reported Gastrointestinal: no symptoms reported Genitourinary: no symptoms reported Musculoskeletal: back pain, joint pain Skin: no symptoms reported Psychiatric/Neurological: Anxiety, Depressed All Other Systems Reviewed Negative Unless Noted: Yes Physical Exam Physical Exam Vital Signs Vital Signs - First Documented 07/24/21 14:54 Temp 36.8 Pulse 130 Resp 17 B/P (MAP) 83/70 Pulse Ox 96 O2 Delivery Nasal Cannula O2 Flow Rate 5.00 Capillary Refill : Less Than 3 Seconds Height, Weight, BMI Height: 5'67.00" Weight: 131lbs. 2.0oz. [id number]; 18.33 BMI Method: General Appearance: Anxious, Chronically ill, Mild Distress (See free text), Thin Eyes: Bilateral Eye PERRL, Bilateral Eye EOMI HEENT: PERRL/EOMI, Normal ENT Inspection, Pharynx Normal Neck: Full Range of Motion, Normal Inspection, Non Tender, Supple, Carotid Bruit Respiratory: Accessory Muscle Use, Crackles, Decreased Breath Sounds Cardiovascular: No Edema, No Gallop, No JVD, No Murmur, Irregularly Irregular, Tachycardia Gastrointestinal: Normal Bowel Sounds, No Organomegaly, No Pulsatile Mass, Non Tender, Soft Back: Normal Inspection, No CVA Tenderness, No Vertebral Tenderness Extremity: Normal Capillary Refill, Normal Inspection, Normal Range of Motion, Non Tender, No Calf Tenderness, No Pedal Edema Neurologic/Psychiatric: Alert, Oriented x3, No Motor/Sensory Deficits, plate printer II- XII Norm as Tested, Depressed Affect, Motor Weakness Skin: Normal Color, Warm/Dry Lymphatic: No Adenopathy Results Results/Procedures Labs Laboratory Tests 07/24/21 15:00 Patient resulted labs reviewed. Assessment/Plan Admission Diagnosis Assessment: AF RVR placed on Cardizem drip and Lovenox therapeutic dose h/o ischemic cardiomyopathy managed by Dr Reed Acute on chronic respiratory distress Acute PNA HAP type placed on Cefepime and Vanc Sepsis AECOPD placed on IV steroids Elevated BNP Chronic hypoxia maintained on supplemental O2 at home Continued smoker Metabolic acidosis on admit HCO3 8 on admit now resolved Lactic acidosis Refractory hypokalemia Anemia Falls Right rib pain from fall with right knee pain Alcoholism with alcohol withdrawal acute now on CIWA Respiratory failure sent to [facility] 08/2019 from [facility] Anxiety Lives alone without family involvement Hypothyroidism PVD Plan: Lovenox Cardizem Cardiology consult IV abx IV steroids CIWA Potassium supplementation O2 Admission Status: Inpatient Order (span 2 midnights) Reason for Inpatient Admission: resp failure Diagnosis/Problems Diagnosis/Problems (1) Atrial fibrillation with RVR (2) Alcohol withdrawal (3) Anxiety (4) Hypokalemia (5) Elevated brain natriuretic peptide (BNP) level (6) Ischemic cardiomyopathy (7) Falls (8) Alcoholism (9) Lives alone (10) Muscle weakness (11) Rib pain on right side (12) CHF (congestive heart failure) Status: Acute MADDIE SABA DO Jul 24, 2021 20:29
[2021-07-24] MEDS ORDERED: ADVAIR HFA 115/21 MCG INHALER 8 GM IH SCH (21:00)
[2021-07-24] MEDS: RT--FLUTICASONE/SALMETEROL 113-14 (AIRDUO RespiCLICK) IH SCH (21:21)
[2021-07-24] MEDS: CEFEPIME INJECTION 1,000 MG in NS (IVPB) 50 ML IV SCH (21:36)
[2021-07-24] MEDS: SENNOSIDES 8.6 MG (SENOKOT) TAB PO SCH (21:36)
[2021-07-24] MEDS: DOCUSATE SODIUM 100 MG (COLACE) CAP PO SCH (21:36)
[2021-07-25] MEDS: RT-ALBUTEROL/IPRATROPIUM 3 ML (DUONEB) VIAL INH SCH ×6 (02:17→21:34)
[2021-07-25] MEDS: LORazepam INJ 2 MG/ML (ATIVAN) VIAL IV PRN ×4 (02:47→22:03)
[2021-07-25 05:26] LABS: BASOPHILS % (AUTO) 0 % (0-10); EOSINOPHILS % (AUTO) 0 % (0-10); HEMATOCRIT 27 % (35-52); HEMOGLOBIN 8.8 g/dL (11.5-16.0); LYMPHOCYTES # (AUTO) 0.2 10^3/uL (1.0-4.0); LYMPHOCYTES % (AUTO) 4 % (12-44); MEAN CORPUSCULAR HEMOGLOBIN 30 pg (25-34); MEAN CORPUSCULAR HGB CONC 33 g/dL (32-36); MEAN CORPUSCULAR VOLUME 93 fL (80-99); MEAN PLATELET VOLUME 10.7 fL (9.0-12.2); MONOCYTES # (AUTO) 0.1 10^3/uL (0.0-1.0); MONOCYTES % (AUTO) 2 % (0-12); NEUTROPHILS # (AUTO) 5.7 10^3/uL (1.8-7.8); NEUTROPHILS % (AUTO) 94 % (42-75); PLATELET COUNT 157 10^3/uL (130-400); WHITE BLOOD COUNT 6.1 10^3/uL (4.3-11.0)
[2021-07-25 05:36] LABS: ALBUMIN 2.8 GM/DL (3.2-4.5); POTASSIUM 3.2 MMOL/L (3.6-5.0)
[2021-07-25 05:37] LABS: CALCIUM 8.2 MG/DL (8.5-10.1)
[2021-07-25 05:39] LABS: TOTAL PROTEIN 5.2 GM/DL (6.4-8.2)
[2021-07-25 05:40] LABS: BILIRUBIN,TOTAL 0.4 MG/DL (0.1-1.0)
[2021-07-25 05:42] LABS: CREATININE SERUM 0.54 MG/DL (0.60-1.30)
[2021-07-25 05:45] LABS: MAGNESIUM 1.3 MG/DL (1.6-2.4)
[2021-07-25 05:50] LABS: ANISOCYTOSIS SLIGHT; BAND NEUTROPHILS 2 %; HYPOCHROMASIA SLIGHT; LYMPHOCYTES % (MANUAL) 2 %; MONOCYTES % (MANUAL) 2 %; NEUTROPHILS % (MANUAL) 94 %
[2021-07-25] MEDS: DexMEDEtomidine 250 ML DRIP 250 ML IV SCH ×2 (05:54→21:05)
[2021-07-25] MEDS: VANCOMYCIN 1 GM/NS 250 ML IVPB IV SCH ×4 (05:54→17:08)
[2021-07-25] MEDS: ENOXAPARIN 60 MG/0.6 ML (LOVENOX) SYR SC SCH ×2 (05:55→16:06)
[2021-07-25] MEDS: NS IV 1000 ML 1,000 ML IV SCH ×3 (05:55→21:05)
[2021-07-25] MEDS: methylPREDNISolone 40 MG/ML (Solu-MEDROL) VIAL IV SCH ×3 (05:55→17:08)
[2021-07-25] MEDS: MAGNESIUM 1 GM/100 ML IVPB 100 ML IV SCH ×4 (07:22→09:03)
[2021-07-25] MEDS: POTASSIUM CL 10MEQ/50ML IVPB 50 ML IV SCH ×4 (07:22→08:13)
[2021-07-25] MEDS: KCL 20 MEQ TAB (K-DUR) PO SCH (07:26)
--- NOTE | 2021-07-25 07:31 | Progress Note ---
Subjective Date Seen by a Provider: Jul 25, 2021 Time Seen by a Provider: 11:30 Subjective/Events-last exam Patient stable Antipsychotics required along with Ativan due to severe agitation from alcohol withdrawal Placed records [place] 08/2019 [place] [facility] [place] reviewed IV antibiotics maintained Cardizem drip maintained Checked meds and labs Patient converted to normal sinus rhythm through the night Appreciate cardiology and eICU IV fluid continues Review of Systems Neurological: Confusion Focused Exam Lactate Level 07/24/21 15:00: Lactic Acid Level 1.03 Objective Exam Last Set of Vital Signs Vital Signs Date Time Temp Pulse Resp B/P (MAP) Pulse Ox O2 Delivery O2 Flow Rate FiO2 07/25/21 07:25 35.8 07/25/21 07:00 73 12 127/59 95 Nasal Cannula 7.00 Capillary Refill : Less Than 3 Seconds I&O Intake and Output 07/25/21 00:00 Intake Total 1425 ml Output Total 425 ml Balance 1000 ml Intake Oral 0 ml IV Total 1425 ml Output Urine Total 425 ml # Voids 1 General: No Acute Distress, Other (Sedated) Lungs: Clear to Auscultation, Other ( diminished breath sounds) Heart: Other ( normal sinus rhythm) Results Lab Laboratory Tests 07/24/21 15:00: White Blood Count 9.2, Red Blood Count 2.82L, Hemoglobin 8.7L, Hematocrit 27L, Mean Corpuscular Volume 95, Mean Corpuscular Hemoglobin 31, Mean Corpuscular Hemoglobin Concent 33, Red Cell Distribution Width 15.0H, Platelet Count 182, Mean Platelet Volume 9.9, Immature Granulocyte % (Auto) 0, Neutrophils (%) (Auto) 81H, Lymphocytes (%) (Auto) 12, Monocytes (%) (Auto) 7, Eosinophils (%) (Auto) 0, Basophils (%) (Auto) 0, Neutrophils # (Auto) 7.4, Lymphocytes # (Auto) 1.1, Monocytes # (Auto) 0.6, Eosinophils # (Auto) 0.0, Basophils # (Auto) 0.0, Immature Granulocyte # (Auto) 0.0, Sodium Level 134L, Potassium Level 3.3L, Chloride Level 99, Carbon Dioxide Level 23, Anion Gap 12, Blood Urea Nitrogen 7, Creatinine 0.52L, Estimat Glomerular Filtration Rate 99, BUN/Creatinine Ratio 13, Glucose Level 106H, Lactic Acid Level 1.03, Calcium Level 8.4L, Corrected Calcium 9.3, Total Bilirubin 0.6, Aspartate Amino Transf (AST/SGOT) 22, Alanine Aminotransferase (ALT/SGPT) 14, Alkaline Phosphatase 56, Troponin I < 0.028, B- Type Natriuretic Peptide 594.2H, Total Protein 5.3L, Albumin 2.9L, Procalcitonin 21.81H 07/24/21 18:19: Glucometer 108 07/24/21 18:25: Blood Gas Puncture Site LEFT RADIAL, Blood Gas Patient Temperature 37.1, Arterial Blood pH 7.49H, Arterial Blood Partial Pressure CO2 36, Arterial Blood Partial Pressure O2 62L, Arterial Blood HCO3 27, Arterial Blood Total CO2 28.4, Arterial Blood Oxygen Saturation 93L, Arterial Blood Base Excess 4.0H, Giuseppe Test YES-POS, Blood Gas Ventilator Setting NO, Blood Gas Inspired Oxygen 6% 07/24/21 20:12: Urine Color YELLOW, Urine Clarity CLEAR, Urine pH 6.0, Urine Specific [place] <=1.005, Urine Protein TRACEH, Urine Glucose (UA) NEGATIVE, Urine Ketones NEGATIVE, Urine Nitrite NEGATIVE, Urine Bilirubin NEGATIVE, Urine Urobilinogen 0.2, Urine Leukocyte Esterase NEGATIVE, Urine RBC (Auto) TRACE-IH, Urine RBC 2- 5H, Urine WBC NONE, Urine Squamous Epithelial Cells NONE, Urine Crystals NONE, Urine Bacteria TRACE, Urine Casts NONE, Urine Mucus NEGATIVE, Urine Culture Indicated NO 07/25/21 00:02: Glucometer 196H 07/25/21 05:00: White Blood Count 6.1, Red Blood Count 2.89L, Hemoglobin 8.8L, Hematocrit 27L, Mean Corpuscular Volume 93, Mean Corpuscular Hemoglobin 30, Mean Corpuscular Hemoglobin Concent 33, Red Cell Distribution Width 14.9H, Platelet Count 157, Mean Platelet Volume 10.7, Immature Granulocyte % (Auto) 0, Neutrophils (%) (Auto) 94H, Lymphocytes (%) (Auto) 4L, Monocytes (%) (Auto) 2, Eosinophils (%) (Auto) 0, Basophils (%) (Auto) 0, Neutrophils # (Auto) 5.7, Lymphocytes # (Auto) 0.2L, Monocytes # (Auto) 0.1, Eosinophils # (Auto) 0.0, Basophils # (Auto) 0.0, Immature Granulocyte # (Auto) 0.0, Neutrophils % (Manual) 94, Lymphocytes % (Manual) 2, Monocytes % (Manual) 2, Band Neutrophils 2, Hypochromasia SLIGHT, Anisocytosis SLIGHT, Sodium Level 139, Potassium Level 3.2L, Chloride Level 105, Carbon Dioxide Level 22, Anion Gap 12, Blood Urea Nitrogen 9, Creatinine 0.54L, Estimat Glomerular Filtration Rate 98, BUN/Creatinine Ratio 17, Glucose Level 204H, Calcium Level 8.2L, Corrected Calcium 9.2, Phosphorus Level 2.0L, Magnesium Level 1.3L, Total Bilirubin 0.4, Aspartate Amino Transf (AST/SGOT) 17, Alanine Aminotransferase (ALT/SGPT) 12, Alkaline Phosphatase 58, Total Protein 5.2L, Albumin 2.8L, Procalcitonin 16.50H 07/25/21 05:57: Glucometer 189H Assessment/Plan Assessment/Plan Assess & Plan/Chief Complaint Assessment: AF RVR placed on Cardizem drip and Lovenox therapeutic dose h/o ischemic cardiomyopathy managed by Dr Reed Acute on chronic respiratory distress Acute PNA HAP type placed on Cefepime and Vanc Sepsis AECOPD placed on IV steroids Elevated BNP Chronic hypoxia maintained on supplemental O2 at home Continued smoker Metabolic acidosis on admit HCO3 8 on admit now resolved Lactic acidosis Refractory hypokalemia Anemia Falls Right rib pain from fall with right knee pain Alcoholism with alcohol withdrawal acute now on CIWA Respiratory failure [place] [facility] Anxiety Lives alone without family involvement Hypothyroidism PVD Plan: Lovenox Cardizem Cardiology consult IV abx IV steroids CIWA Potassium supplementation O2 07/25/2021: eICU and cardiology appreciated Supportive care Alcohol withdrawal management Diagnosis/Problems Diagnosis/Problems (1) Atrial fibrillation with RVR (2) Alcohol withdrawal (3) Anxiety (4) Hypokalemia (5) Elevated brain natriuretic peptide (BNP) level (6) Ischemic cardiomyopathy (7) Falls (8) Alcoholism (9) Lives alone (10) Muscle weakness (11) Rib pain on right side (12) CHF (congestive heart failure) Status: Acute TENZIN SABA DO Jul 25, 2021 07:31
[2021-07-25] MEDS: RT--FLUTICASONE/SALMETEROL 113-14 (AIRDUO RespiCLICK) IH SCH ×2 (07:56→21:34)
--- NOTE | 2021-07-25 07:59 | Diagnostic Imaging Report ---
Indication: Dyspnea. Comparison: 07/24/2021. Discussion: Single portable upright view of the chest was obtained. Defibrillator patches are present. Left-sided central venous catheter remains in good position. Mild cardiomegaly is stable. Nonspecific infiltrates are again noted bilaterally. Small left effusion is stable. No pneumothorax. No osseous abnormality. Impression: 1. Stable chest. Dictated by: Dictated on workstation # [id number]
[2021-07-25] MEDS: dilTIAZem DRIP PRE-MIX 125 ML IV SCH ×2 (08:30→18:55)
[2021-07-25] MEDS: THIAMINE 100 MG (VITAMIN B-1) TAB PO SCH (08:32)
[2021-07-25] MEDS: MULTIVIT W/MINERALS TAB (THERAGRAN M) PO SCH (08:32)
[2021-07-25] MEDS: DOCUSATE SODIUM 100 MG (COLACE) CAP PO SCH ×2 (08:32→22:51)
[2021-07-25] MEDS: FOLIC ACID 1 MG TAB PO SCH (08:33)
[2021-07-25] MEDS: PANTOPRAZOLE 40 MG (PROTONIX) TAB PO SCH (08:33)
[2021-07-25] MEDS: SENNOSIDES 8.6 MG (SENOKOT) TAB PO SCH ×2 (08:33→22:51)
[2021-07-25] MEDS: CEFEPIME INJECTION 1,000 MG in NS (IVPB) 50 ML IV SCH ×2 (09:17→21:05)
--- NOTE | 2021-07-25 10:38 | Tele-ICU Progress Note ---
Subjective Date Seen by a Provider: Jul 25, 2021 Time Seen by a Provider: 10:33 Subjective/Events-last exam patient with hx of ccm, etoh abuse presented with afib with rvr, pneumonia . on full dose lovenox. resting comfortably. mg and k are low Review of Systems ROS PER RN Sepsis Event Evaluation Height, Weight, BMI Height: 5'67.00" Weight: 131lbs. 2.0oz. [id number]; 18.33 BMI Method: Focused Exam Lactate Level 07/24/21 15:00: Lactic Acid Level 1.03 Exam Exam Patient acknowledged, consented, and participated in this virtual visit which was conducted using real time audio/video Vital Signs Date Time Temp Pulse Resp B/P (MAP) Pulse Ox O2 Delivery O2 Flow Rate FiO2 07/25/21 10:00 71 11 122/55 92 Nasal Cannula 2.00 07/25/21 09:00 73 12 116/55 92 Nasal Cannula 2.00 07/25/21 08:08 93 Nasal Cannula 2.00 07/25/21 08:00 71 12 122/59 95 Nasal Cannula 7.00 07/25/21 07:25 35.8 07/25/21 07:00 73 12 127/59 95 Nasal Cannula 7.00 07/25/21 07:00 79 07/25/21 06:00 75 13 128/59 96 Nasal Cannula 7.00 07/25/21 05:54 76 131/58 07/25/21 05:00 78 16 129/60 95 Nasal Cannula 7.00 07/25/21 04:00 78 16 131/61 95 Nasal Cannula 7.00 07/25/21 04:00 94 Nasal Cannula 6.00 07/25/21 03:00 81 16 135/62 95 Nasal Cannula 7.00 07/25/21 02:17 96 Nasal Cannula 6.00 07/25/21 02:00 76 17 131/61 96 Nasal Cannula 7.00 07/25/21 01:00 81 07/25/21 01:00 81 17 136/59 96 Nasal Cannula 7.00 07/25/21 00:00 94 Nasal Cannula 6.00 07/24/21 23:10 90 18 139/62 96 Nasal Cannula 7.00 07/24/21 23:00 81 18 135/62 95 Nasal Cannula 5.00 07/24/21 22:00 83 15 137/63 95 Nasal Cannula 5.00 07/24/21 21:21 92 Nasal Cannula 6.00 07/24/21 21:00 78 14 138/64 94 Nasal Cannula 5.00 07/24/21 20:00 94 Nasal Cannula 6.00 07/24/21 20:00 36.5 07/24/21 20:00 96 13 104/71 94 Nasal Cannula 5.00 07/24/21 19:00 81 16 90/59 94 Nasal Cannula 5.00 07/24/21 19:00 82 07/24/21 18:27 94 Nasal Cannula 6.00 07/24/21 18:00 91 16 90/58 99 Nasal Cannula 5.00 07/24/21 17:01 104 07/24/21 17:00 101 19 78/56 95 Nasal Cannula 5.00 07/24/21 16:35 154 91/66 07/24/21 16:00 154 30 91/66 100 Nasal Cannula 5.00 07/24/21 15:58 36.8 07/24/21 15:51 94 Nasal Cannula 5.00 07/24/21 15:08 138 07/24/21 15:00 115 15 73/47 98 Nasal Cannula 5.00 07/24/21 14:54 36.8 130 17 83/70 96 Nasal Cannula 5.00 I & O 07/25/21 07:00 Intake Total 2675 ml Output Total 775 ml Balance 1900 ml Height & Weight Height: 5'67.00" Weight: 131lbs. 2.0oz. [id number]; 18.33 BMI Method: General Appearance: Anxious, Chronically ill, Mild Distress (See free text), Thin HEENT: PERRL/EOMI, Normal ENT Inspection, Pharynx Normal Neck: Full Range of Motion, Normal Inspection, Non Tender, Supple, Carotid Bruit Respiratory: Accessory Muscle Use, Crackles, Decreased Breath Sounds Cardiovascular: No Edema, No Gallop, No JVD, No Murmur, Irregularly Irregular, Tachycardia Capillary Refill: Less Than 3 Seconds Peripheral Pulses: 1+ Dorsalis Pedis (R), 1+ Left Dors-Pedis (L) Gastrointestinal: soft, no organomegaly, no pulsatile mass Extremity: Normal Capillary Refill, Normal Inspection, Normal Range of Motion, Non Tender, No Calf Tenderness, No Pedal Edema Neurologic/Psychiatric: Alert, Oriented x3, No Motor/Sensory Deficits, belt notcher II- XII Norm as Tested, Depressed Affect, Motor Weakness Skin: Normal Color, Warm/Dry Lymphatic: No Adenopathy Other comments PE PER RN Results Lab Laboratory Tests 07/24/21 15:00 07/25/21 05:00 Assessment/Plan Assessment/Plan 1. Afib with rvr on cardiazem drip. 2. systolic chf. 3. pneumonia. Recomendations. 1. continue Cardizem and lovenox per cardiology. 2. IVABx's per primary care. 3. diuretic therapy. 4. replace electrolytes Critical Care: Critically Ill Patient Time spent with patient (mins): 20 DHARA SANCHEZ MD Jul 25, 2021 10:38
[2021-07-25] MEDS ORDERED: THIAMINE INJECTION 100 MG, FOLIC ACID INJECTION 1 MG, VITAMIN MULTI INJECTION 10 ML, MA... IV NR ×5 (13:00)
--- NOTE | 2021-07-25 13:58 | Progress Note - Cardiology ---
Cardiology SOAP Progress Note Subjective: Somnolent, verbally unresponsive Objective: I&O/Vital Signs 07/25/21 07/25/21 07/25/21 07/25/21 02:00 02:17 03:00 04:00 Pulse 76 81 Resp 17 16 B/P (MAP) 131/61 135/62 Pulse Ox 96 96 95 94 O2 Delivery Nasal Cannula Nasal Cannula Nasal Cannula Nasal Cannula O2 Flow Rate 7.00 6.00 7.00 6.00 07/25/21 07/25/21 07/25/21 07/25/21 04:00 05:00 05:54 06:00 Pulse 78 78 76 75 Resp 16 16 13 B/P (MAP) 131/61 129/60 131/58 128/59 Pulse Ox 95 95 96 O2 Delivery Nasal Cannula Nasal Cannula Nasal Cannula O2 Flow Rate 7.00 7.00 7.00 07/25/21 07/25/21 07/25/21 07/25/21 07:00 07:00 07:25 08:00 Temp 35.8 Pulse 79 73 71 Resp 12 12 B/P (MAP) 127/59 122/59 Pulse Ox 95 95 O2 Delivery Nasal Cannula Nasal Cannula O2 Flow Rate 7.00 7.00 07/25/21 07/25/21 07/25/21 07/25/21 08:08 09:00 10:00 11:00 Pulse 73 71 68 Resp 12 11 11 B/P (MAP) 116/55 122/55 119/56 Pulse Ox 93 92 92 92 O2 Delivery Nasal Cannula Nasal Cannula Nasal Cannula Nasal Cannula O2 Flow Rate 2.00 2.00 2.00 2.00 07/25/21 07/25/21 07/25/21 07/25/21 11:22 11:54 12:00 13:00 Temp 35.6 Pulse 78 68 Resp 12 11 B/P (MAP) 128/65 122/57 Pulse Ox 93 91 91 O2 Delivery Nasal Cannula Nasal Cannula Nasal Cannula O2 Flow Rate 2.00 2.00 2.00 07/25/21 13:00 Pulse 68 07/25/21 00:00 Intake Total 1425 ml Output Total 425 ml Balance 1000 ml Weight (Pounds): 131 Weight (Ounces): 2.0 Weight (Calculated Kilograms): 59.260512 Constitutional: No AAO x 3; well-developed, other (thin appearing) Respiratory: No accessory muscle use; other (fair, bilat air entry) Cardiovascular: regular rate-rhythm, S1 and S2, systolic murmur (soft MANINDER at card base) Gastrointestional: No tender; soft; No guarding, No rebound; audible bowel sounds Extremities: No clubbing, No cyanosis, No significant edema Neurologic/Psychiatric: No oriented x 3; other (moves all limbs equally) Skin: No rash on exposed areas, No ulcerations on exposed areas Results/Procedures: Labs Laboratory Tests 07/24/21 15:00: White Blood Count 9.2, Red Blood Count 2.82L, Hemoglobin 8.7L, Hematocrit 27L, Mean Corpuscular Volume 95, Mean Corpuscular Hemoglobin 31, Mean Corpuscular Hemoglobin Concent 33, Red Cell Distribution Width 15.0H, Platelet Count 182, Mean Platelet Volume 9.9, Immature Granulocyte % (Auto) 0, Neutrophils (%) (Auto) 81H, Lymphocytes (%) (Auto) 12, Monocytes (%) (Auto) 7, Eosinophils (%) (Auto) 0, Basophils (%) (Auto) 0, Neutrophils # (Auto) 7.4, Lymphocytes # (Auto) 1.1, Monocytes # (Auto) 0.6, Eosinophils # (Auto) 0.0, Basophils # (Auto) 0.0, Immature Granulocyte # (Auto) 0.0, Sodium Level 134L, Potassium Level 3.3L, Chloride Level 99, Carbon Dioxide Level 23, Anion Gap 12, Blood Urea Nitrogen 7, Creatinine 0.52L, Estimat Glomerular Filtration Rate 99, BUN/Creatinine Ratio 13, Glucose Level 106H, Lactic Acid Level 1.03, Calcium Level 8.4L, Corrected Calcium 9.3, Total Bilirubin 0.6, Aspartate Amino Transf (AST/SGOT) 22, Alanine Aminotransferase (ALT/SGPT) 14, Alkaline Phosphatase 56, Troponin I < 0.028, B- Type Natriuretic Peptide 594.2H, Total Protein 5.3L, Albumin 2.9L, Procalcitonin 21.81H 07/24/21 18:19: Glucometer 108 07/24/21 18:25: Blood Gas Puncture Site LEFT RADIAL, Blood Gas Patient Temperature 37.1, Arterial Blood pH 7.49H, Arterial Blood Partial Pressure CO2 36, Arterial Blood Partial Pressure O2 62L, Arterial Blood HCO3 27, Arterial Blood Total CO2 28.4, Arterial Blood Oxygen Saturation 93L, Arterial Blood Base Excess 4.0H, Giuseppe Test YES-POS, Blood Gas Ventilator Setting NO, Blood Gas Inspired Oxygen 6% 07/24/21 20:12: Urine Color YELLOW, Urine Clarity CLEAR, Urine pH 6.0, Urine Specific [place] <=1.005, Urine Protein TRACEH, Urine Glucose (UA) NEGATIVE, Urine Ketones NEGATIVE, Urine Nitrite NEGATIVE, Urine Bilirubin NEGATIVE, Urine Urobilinogen 0.2, Urine Leukocyte Esterase NEGATIVE, Urine RBC (Auto) TRACE-IH, Urine RBC 2- 5H, Urine WBC NONE, Urine Squamous Epithelial Cells NONE, Urine Crystals NONE, Urine Bacteria TRACE, Urine Casts NONE, Urine Mucus NEGATIVE, Urine Culture Indicated NO 07/25/21 00:02: Glucometer 196H 07/25/21 05:00: White Blood Count 6.1, Red Blood Count 2.89L, Hemoglobin 8.8L, Hematocrit 27L, Mean Corpuscular Volume 93, Mean Corpuscular Hemoglobin 30, Mean Corpuscular H emoglobin Concent 33, Red Cell Distribution Width 14.9H, Platelet Count 157, Me an Platelet Volume 10.7, Immature Granulocyte % (Auto) 0, Neutrophils (%) (Auto) 94H, Lymphocytes (%) (Auto) 4L, Monocytes (%) (Auto) 2, Eosinophils (%) (Auto) 0, Basophils (%) (Auto) 0, Neutrophils # (Auto) 5.7, Lymphocytes # (Auto) 0.2L, Monocytes # (Auto) 0.1, Eosinophils # (Auto) 0.0, Basophils # (Auto) 0.0, Immature Granulocyte # (Auto) 0.0, Neutrophils % (Manual) 94, Lymphocytes % (Manual) 2, Monocytes % (Manual) 2, Band Neutrophils 2, Hypochromasia SLIGHT, Anisocytosis SLIGHT, Sodium Level 139, Potassium Level 3.2L, Chloride Level 105, Carbon Dioxide Level 22, Anion Gap 12, Blood Urea Nitrogen 9, Creatinine 0.54L, Estimat Glomerular Filtration Rate 98, BUN/Creatinine Ratio 17, Glucose Level 204H, Calcium Level 8.2L, Corrected Calcium 9.2, Phosphorus Level 2.0L, Magnesium Level 1.3L, Total Bilirubin 0.4, Aspartate Amino Transf (AST/SGOT) 17, Alanine Aminotransferase (ALT/SGPT) 12, Alkaline Phosphatase 58, Total Protein 5.2L, Albumin 2.8L, Procalcitonin 16.50H 07/25/21 05:57: Glucometer 189H 07/25/21 11:30: Glucometer 252H 07/25/21 11:45: Glucometer 215H Microbiology 07/24/21 MRSA Screen - Final, Complete MRSA not isolated Laboratory Tests 07/24/21 15:00 07/25/21 05:00 A/P: Assessment: Ac exac of COPD due to pneumonia - managed by Dr Pena PAF with RVR - NSR on 07/25/21 Delirium and agitation: alcohol withdrawal suspected H/o nonischemic cardiomyopathy with EF 15 percent in 2015, repeat echo done in July 2019 showed ejection fraction 45-50 percent, mild mitral and tricuspid regurgitation, PA pressure of 30 mmHg CAD, mod on card cath of 07/07 H/o hypertension, continue to monitor no changes are recommended H/o hyperlipidemia, intolerant to statin and fenofibrate H/o hypothyroidism H/o tobacco use Moderate carotid artery stenosis, monitored by Dr Reed Cerebral aneurysm-evaluated by Dr. Troy Stewart in [place], underwent cerebral angiogram, reported to have been advised conservative management. No h/o intracranial bleed Plan: * Complex management due to multiple comorbidities * iv dilt and dig for vent rate control * Anticoag for stroke prophylaxis, if approved by Dr Pena * Replencathy lytes * Monitor labs * Change meds to oral when she is able to have an oral intake MANNIE PILLAI MD FACP [employer] [employer] [facility] [employer] Jul 25, 2021 13:58
[2021-07-25] MEDS: HALOPERIDOL 5 MG/ML (HALDOL) VIAL IM PRN ×2 (17:25→20:44)
[2021-07-26] MEDS: methylPREDNISolone 40 MG/ML (Solu-MEDROL) VIAL IV SCH ×5 (01:10→23:32)
[2021-07-26] MEDS: RT-ALBUTEROL/IPRATROPIUM 3 ML (DUONEB) VIAL INH SCH ×6 (02:24→22:24)
[2021-07-26] MEDS ORDERED: FUROSEMIDE 40 MG/4 ML INJ (LASIX) ONE ×2 (03:04→09:47)
--- NOTE | 2021-07-26 03:09 | Tele-ICU Progress Note ---
Progress Note Worsening infiltrates on CXR and oxygenation. Lasix , BIPAP and ABG ordered. If respiratory status not improved , will intubate. D/W RT and bedside nurse. Hyopxic respiratory failure Interventions Major Focused Exam Lactate Level 07/24/21 15:00: Lactic Acid Level 1.03 Height, Weight, BMI Height: 5'67.00" Weight: 131lbs. 2.0oz. 59.359794eu; 18.33 BMI Method: ED RUELAS MD Jul 26, 2021 03:09
[2021-07-26] MEDS ORDERED: FUROSEMIDE 40 MG/4 ML INJ (LASIX) IVP ONE (03:15)
[2021-07-26] MEDS: HALOPERIDOL 5 MG/ML (HALDOL) VIAL IM PRN ×3 (03:25→19:44)
[2021-07-26] MEDS ORDERED: TROUGH ORDER-PHARMACY XX NR (05:00)
[2021-07-26] MEDS: LORazepam INJ 2 MG/ML (ATIVAN) VIAL IV PRN ×4 (05:05→22:51)
[2021-07-26 05:09] LABS: ABG BASE EXCESS -0.9 MMOL/L (-2.5-2.5); ABG OXYGEN SATURATION 98 % (94-100); ABG PCO2 30 MMHG (35-45); ABG PH 7.48 (7.37-7.43); ABG PO2 88 MMHG (79-93); ABG TCO2 23.1 MMOL/L (21.0-31.0)
[2021-07-26 05:10] LABS: INSPIRED O2 NOT INDICATED; PATIENT TEMP 37.1; VENTILATOR NO
[2021-07-26 05:37] LABS: BASOPHILS % (AUTO) 0 % (0-10); EOSINOPHILS % (AUTO) 0 % (0-10); HEMATOCRIT 27 % (35-52); HEMOGLOBIN 8.9 g/dL (11.5-16.0); LYMPHOCYTES # (AUTO) 0.3 10^3/uL (1.0-4.0); LYMPHOCYTES % (AUTO) 3 % (12-44); MEAN CORPUSCULAR HEMOGLOBIN 31 pg (25-34); MEAN CORPUSCULAR HGB CONC 33 g/dL (32-36); MEAN CORPUSCULAR VOLUME 92 fL (80-99); MEAN PLATELET VOLUME 10.8 fL (9.0-12.2); MONOCYTES # (AUTO) 0.4 10^3/uL (0.0-1.0); MONOCYTES % (AUTO) 4 % (0-12); NEUTROPHILS # (AUTO) 8.3 10^3/uL (1.8-7.8); NEUTROPHILS % (AUTO) 92 % (42-75); PLATELET COUNT 181 10^3/uL (130-400); WHITE BLOOD COUNT 9.1 10^3/uL (4.3-11.0)
[2021-07-26 05:49] LABS: ALBUMIN 2.7 GM/DL (3.2-4.5); POTASSIUM 3.1 MMOL/L (3.6-5.0)
[2021-07-26 05:51] LABS: CALCIUM 7.9 MG/DL (8.5-10.1)
[2021-07-26 05:52] LABS: TOTAL PROTEIN 4.8 GM/DL (6.4-8.2)
[2021-07-26 05:54] LABS: BILIRUBIN,TOTAL 0.3 MG/DL (0.1-1.0)
[2021-07-26 05:55] LABS: PHOSPHORUS 1.6 MG/DL (2.3-4.7)
[2021-07-26 05:56] LABS: CREATININE SERUM 0.55 MG/DL (0.60-1.30)
[2021-07-26 05:58] LABS: MAGNESIUM 2.1 MG/DL (1.6-2.4)
[2021-07-26 06:05] LABS: VANCOMYCIN,TROUGH 18.4 UG/ML (10.0-20.0)
[2021-07-26] MEDS: KCL 20 MEQ TAB (K-DUR) PO SCH (06:28)
[2021-07-26] MEDS: POTASSIUM CL 10MEQ/50ML IVPB 50 ML IV SCH ×5 (06:28→07:58)
[2021-07-26] MEDS: VANCOMYCIN 1 GM/NS 250 ML IVPB IV SCH ×2 (06:28)
[2021-07-26] MEDS: MAGNESIUM 1 GM/100 ML IVPB 100 ML IV SCH (06:28)
[2021-07-26 06:59] VITALS: BP_DIAS 142
--- NOTE | 2021-07-26 07:28 | Diagnostic Imaging Report ---
CHEST 1 VIEW, AP/PA ONLY Indication: Dyspnea Comparison: 07/25/2021 Findings: Stable left IJ central venous catheter. Worsening of bilateral heterogeneous pulmonary opacities and small bilateral pleural effusions. No pneumothorax. Stable cardiac silhouette. Impression: 1. Worsening of bilateral pulmonary opacities that may be secondary to pulmonary edema, atelectasis and/or multifocal infection. Dictated by: Dictated on workstation # [id number]
[2021-07-26] MEDS: CEFEPIME INJECTION 1,000 MG in NS (IVPB) 50 ML IV SCH ×2 (07:58→17:14)
[2021-07-26] MEDS: ENOXAPARIN 60 MG/0.6 ML (LOVENOX) SYR SC SCH ×2 (07:58→16:19)
--- NOTE | 2021-07-26 08:36 | Cardiology Progress Note ---
Subjective Date Seen by Provider: Jul 26, 2021 Time Seen by Provider: 08:31 Subjective/Events-last exam Patient appears agitated this morning. Sitting reports has been this way all morning. Currently on BiPAP. Review of Systems General: Fatigue, Other (Unable to provide review of system) Focused Exam Lactate Level 07/24/21 15:00: Lactic Acid Level 1.03 Objective-Cardiology Exam Last Set of Vital Signs Vital Signs 07/26/21 07/26/21 07/26/21 07:00 07:31 08:00 Temp 36.0 Pulse 83 Resp 17 B/P (MAP) 142/64 Pulse Ox 94 O2 Delivery NIV Bilevel O2 Flow Rate 50.00 FiO2 50 I&O Intake and Output 07/26/21 00:00 Intake Total 3750 ml Output Total 820 ml Balance 2930 ml Intake Oral 100 ml IV Total 3650 ml Output Urine Total 820 ml General: Mild Distress, Other (Lethargic, on BiPAP) HEENT: Atraumatic Neck: Supple Lungs: Clear to Auscultation, Other ( diminished breath sounds) Heart: Regular Rate, Normal S1, Normal S2 Abdomen: Soft Extremities: No Edema Skin: No Rashes, No Significant Lesion Neuro: Other (Lethargic and not following commands) Psych/Mental Status: Other (Not responding to questions, on BiPAP) Results Lab Laboratory Tests 07/26/21 05:05 A/P-Cardiology Admission Diagnosis PAF AE COPD Pneumonia HTN Assessment/Plan Ac exac of COPD due to pneumonia, currently on BiPAP, CXR showing worsening infiltrated, managed by Dr Pena and ReyU PAF with RVRRadha Mazariegos in [place] on since 07/25/21. On Lovenox. Delirium and agitation: alcohol withdrawal suspected H/o nonischemic cardiomyopathy, improved, ejection fraction 50% on the last echo in [place] in September 2020, I will repeat her echo CAD, mod on card cath of 07/07 Hypertension, continue to monitor no changes are recommended Hyperlipidemia, intolerant to statin and fenofibrate, continue to monitor as outpatient. Hypothyroidism H/o tobacco use Moderate carotid artery stenosis Cerebral aneurysm-evaluated by Dr. Troy Stewart in [place], underwent cerebral angiogram, reported to have been advised conservative management. No h/o intracranial bleed Supervisory-Addendum Brief Supervisory Addendum Participated in pt care: history, MDM, physical Personally performed: exam, history, MDM Care discussed with: IVY Results interpretation: Verified all documentation Notes: Patient was seen at bedside, laying down comfortably Maintained on BiPAP, not responding to questions Currently in sinus rhythm Receiving treatment for alcohol withdrawal and pneumonia I will repeat 2D echo Continue to monitor PLACIDO GIRON Jul 26, 2021 08:36 TRES GASCA MD Jul 26, 2021 09:40
[2021-07-26] MEDS: THIAMINE 100 MG (VITAMIN B-1) TAB PO SCH (08:45)
[2021-07-26] MEDS: FOLIC ACID 1 MG TAB PO SCH (08:45)
[2021-07-26] MEDS: DOCUSATE SODIUM 100 MG (COLACE) CAP PO SCH ×2 (08:45→19:13)
[2021-07-26] MEDS: SENNOSIDES 8.6 MG (SENOKOT) TAB PO SCH ×2 (08:45→19:13)
[2021-07-26] MEDS: MULTIVIT W/MINERALS TAB (THERAGRAN M) PO SCH (08:45)
[2021-07-26] MEDS: PANTOPRAZOLE 40 MG (PROTONIX) TAB PO SCH (08:45)
[2021-07-26] MEDS ORDERED: meTOprolol 5 MG/5 ML (LOPRESSOR) VIAL ONE (09:47)
--- NOTE | 2021-07-26 10:18 | Tele-ICU Progress Note ---
Subjective Date Seen by a Provider: Jul 26, 2021 Time Seen by a Provider: 10:17 Sepsis Event Evaluation Height, Weight, BMI Height: 5'67.00" Weight: 131lbs. 2.0oz. 59.573403gw; 18.33 BMI Method: Focused Exam Lactate Level 07/24/21 15:00: Lactic Acid Level 1.03 Exam Exam Patient acknowledged, consented, and participated in this virtual visit which was conducted using real time audio/video Vital Signs Date Time Temp Pulse Resp B/P (MAP) Pulse Ox O2 Delivery O2 Flow Rate FiO2 07/26/21 09:00 14 142/69 93 NIV Bilevel 50.00 07/26/21 08:00 36.0 07/26/21 08:00 94 NIV Bilevel 50 07/26/21 08:00 85 15 144/70 92 NIV Bilevel 50.00 07/26/21 07:31 83 07/26/21 07:00 79 17 142/64 97 NIV Bilevel 50.00 07/26/21 06:59 78 16 97 50.00 07/26/21 06:00 77 17 141/63 96 NIV Bilevel 50.00 07/26/21 05:00 81 26 143/66 93 NIV Bilevel 50.00 07/26/21 04:00 92 Nasal Cannula 4.00 07/26/21 04:00 80 15 136/61 95 NIV Bilevel 50.00 07/26/21 03:12 87 20 97 50.00 07/26/21 03:00 98 34 175/103 89 Vapotherm 30.00 65.00 07/26/21 02:27 92 Vapotherm 30.00 65 07/26/21 02:00 71 16 127/63 92 Vapotherm 30.00 65.00 07/26/21 01:15 93 Vapotherm 30.00 65 07/26/21 01:00 70 16 127/62 93 Vapotherm 30.00 65.00 07/26/21 00:58 66 07/26/21 00:00 36.7 07/26/21 00:00 92 Nasal Cannula 4.00 07/26/21 00:00 65 26 95/81 86 Vapotherm 30.00 65.00 07/25/21 23:00 75 20 127/62 96 Nasal Cannula 12.00 07/25/21 22:00 76 28 127/61 94 Nasal Cannula 12.00 07/25/21 21:46 95 High Flow N/C 15.00 07/25/21 21:05 75 122/62 07/25/21 21:00 73 17 122/62 Nasal Cannula 12.00 07/25/21 20:00 75 14 128/61 93 Nasal Cannula 12.00 07/25/21 20:00 92 Nasal Cannula 4.00 07/25/21 20:00 36.5 77 15 121/55 93 Nasal Cannula 12.00 07/25/21 20:00 36.5 07/25/21 19:00 80 07/25/21 19:00 75 18 121/57 93 Nasal Cannula 6.00 07/25/21 18:32 93 High Flow N/C 9.00 07/25/21 18:00 74 28 123/57 92 Nasal Cannula 6.00 07/25/21 17:03 Nasal Cannula 6.00 07/25/21 17:00 85 24 90 Nasal Cannula 2.00 07/25/21 16:45 131/62 07/25/21 16:00 87 22 139/66 Nasal Cannula 2.00 07/25/21 15:16 92 Nasal Cannula 4.00 07/25/21 15:01 95 Nasal Cannula 5.00 07/25/21 15:00 75 135/68 90 Nasal Cannula 2.00 07/25/21 14:00 70 12 125/59 89 Nasal Cannula 2.00 07/25/21 13:00 68 07/25/21 13:00 68 11 122/57 91 Nasal Cannula 2.00 07/25/21 12:00 78 12 128/65 91 Nasal Cannula 2.00 07/25/21 11:54 35.6 07/25/21 11:22 93 Nasal Cannula 2.00 07/25/21 11:00 68 11 119/56 92 Nasal Cannula 2.00 07/25/21 10:55 95 Nasal Cannula 4.00 I & O 07/26/21 06:59 Intake Total 2500 ml Output Total 1220 ml Balance 1280 ml Height & Weight Height: 5'67.00" Weight: 131lbs. 2.0oz. 59.432967qe; 18.33 BMI Method: General Appearance: Anxious, Chronically ill, Mild Distress (See free text), Thin HEENT: PERRL/EOMI, Normal ENT Inspection, Pharynx Normal Neck: Full Range of Motion, Normal Inspection, Non Tender, Supple, Carotid Bruit Respiratory: Accessory Muscle Use, Crackles, Decreased Breath Sounds Cardiovascular: No Edema, No Gallop, No JVD, No Murmur, Irregularly Irregular, Tachycardia Capillary Refill: Less Than 3 Seconds Peripheral Pulses: 1+ Dorsalis Pedis (R), 1+ Left Dors-Pedis (L) Gastrointestinal: soft, no organomegaly, no pulsatile mass Extremity: Normal Capillary Refill, Normal Inspection, Normal Range of Motion, Non Tender, No Calf Tenderness, No Pedal Edema Neurologic/Psychiatric: Alert, Oriented x3, No Motor/Sensory Deficits, water commissioner II- XII Norm as Tested, Depressed Affect, Motor Weakness Skin: Normal Color, Warm/Dry Lymphatic: No Adenopathy Results Lab Laboratory Tests 07/24/21 15:00 07/25/21 05:00 07/26/21 05:05 Assessment/Plan Assessment/Plan (Tele-ICU Physician , Progress Note ) Available chart/ vitals / labs / Images reviewed Video assessment done using teleICU camera, rest of exam as per RN Discussed with RN , EXAM PER RN Events overnight : ploaced on BIPAP Afebrile FiO2 - 45% I/O = neg Drips: cardizem gtt Pressors: , hemodynamically stable Consultants: mack Hospital course: (07/24) 71f admitted from OSH for A-fib/RVR and COPD.//Etoh w/d, hx cerebral aneurysm w/conservative mgt. A/P Acute resp failure AE of CHF and COPD and PNA - BIPAP 15/, 45 % rr 35 TV 350-450 AECOPD - SM 40 q 6 - nebs PNA ( PCT 22 on 07/24 - blood cx neg 07/24 , UA neg - cefepine and vanco 07/24 -> PAF with RVR - NSR on 07/25/21- cardizem gtt - ECHO pending - as per cards - on AC love 1/kg bid ETOH withdrawal suspected -Delirium and agitation - precedex 1.5 - benzo -folate and thiamine H/o non-ischemic CM , CAD, mod on card cath of 07/07 -ECHO 2019 - EF 45% ( EF 15 % in 2015 hyperglycemia - on steroids - follw Anemia - stable Moderate carotid artery stenosis Lines : left IJ 07/25 (Central Line Necessity Reviewed) Dodson: + OG: Nutrition: npo Analgesia: Anxiety/ delirium VTE Prophylaxis: alena 50 q 12 Stress Ulcer Prophylaxis: ppi Glycemic Control: Plans in collaboration with bedside consultants and IM MDs. Discussed with RN to reach out if any questions or concerns A total of 33 minutes of critical care time was devoted to this patient today, required to treat and/or prevent further deterioration of critical care condition ( as above) . DOUGLAS RYDER MD Jul 26, 2021 10:17
[2021-07-26] MEDS: RT--FLUTICASONE/SALMETEROL 113-14 (AIRDUO RespiCLICK) IH SCH ×2 (10:27→22:27)
[2021-07-26 10:28] VITALS: BP_DIAS 145
--- NOTE | 2021-07-26 10:44 | Progress Note ---
KARELY DIA 07/26/21 1044: Subjective Date Seen by a Provider: Jul 26, 2021 Time Seen by a Provider: 08:15 Subjective/Events-last exam CC: AF w/RVR with increased hypoxia in midst of ETOH withdrawal HPI: This is a 71yo clinic patient of Dorota Calixto NP in [place] who was moved from [facility] med-surg due to abrupt onset of AF RVR and no ICU nursing staff at [facility]. Patient was admitted earlier in the week for weakness and falls and found to have severe metabolic acidosis with lactic acidosis without evidence of sepsis or infection. required aggressive IVF and supportive care with CIWA and vitamin supplement due to continued binge alcohol consumption. Patient denied any use of alcohol when directly asked. Patient has smoking history and was having increased work of breathing while at [facility] during diagnosis of AF RVR so PNA was suspected and patient placed on emperic HAP treatment of Cefepime and Vancomycin and started AECOPD steroid dosing. Patient was also admitted in the past at [facility] for the same complaints severe metabolic acidosis and also denied use of ETOH at that time which caused a delay of diagnosing ETOH withdrawal and disrupted the plan for management. Patient also being consulted by Dr. Tiwari, Cardiology. Subjective/Events-last exam Patient was placed on BiPaap. Has been given Haldol and Ativan though still seems agitated and also trying to remove her BiPap. BiPap settings 15/8 @ 45% O2. Patient was also varying in O2 Sat between 84% and 92% while I was in the room, again she was attempting to remove the BiPap from her face. Review of Systems General: Other (Patient not responding to questions for ROS.) Focused Exam Lactate Level 07/24/21 15:00: Lactic Acid Level 1.03 Objective Exam Last Set of Vital Signs Vital Signs Date Time Temp Pulse Resp B/P (MAP) Pulse Ox O2 Delivery O2 Flow Rate FiO2 07/26/21 10:28 82 19 98 45.00 07/26/21 09:00 142/69 NIV Bilevel 07/26/21 08:00 36.0 07/26/21 08:00 50 Capillary Refill : Less Than 3 Seconds I&O Intake and Output 07/26/21 00:00 Intake Total 3750 ml Output Total 820 ml Balance 2930 ml Intake Oral 100 ml IV Total 3650 ml Output Urine Total 820 ml General: Mild Distress, Other (Patient making attempts to remove her BiPap, t art she does not respond to questions. BiPap settings 15/8 @ 45% O2. Patient's O2 Saturation ranging from 84% to 92% while I was also in the room.) Lungs: Clear to Auscultation, Normal Air Movement Heart: Regular Rate Results Lab Laboratory Tests 07/25/21 11:30: Glucometer 252H 07/25/21 11:45: Glucometer 215H 07/25/21 17:16: Glucometer 268H 07/26/21 00:40: Glucometer 200H 07/26/21 04:26: Blood Gas Puncture Site NOT INDICATED, Blood Gas Patient Temperature 37.1, Arterial Blood pH 7.48H, Arterial Blood Partial Pressure CO2 30L, Arterial Blood Partial Pressure O2 88, Arterial Blood HCO3 22L, Arterial Blood Total CO2 23.1, Arterial Blood Oxygen Saturation 98, Arterial Blood Base Excess -0.9, Giuseppe Test NA, Blood Gas Ventilator Setting NO, Blood Gas Inspired Oxygen NOT INDICATED 07/26/21 05:05: White Blood Count 9.1, Red Blood Count 2.91L, Hemoglobin 8.9L, Hematocrit 27L, Mean Corpuscular Volume 92, Mean Corpuscular Hemoglobin 31, Mean Corpuscular Hemoglobin Concent 33, Red Cell Distribution Width 15.1H, Platelet Count 181, Mean Platelet Volume 10.8, Immature Granulocyte % (Auto) 1, Neutrophils (%) (Auto) 92H, Lymphocytes (%) (Auto) 3L, Monocytes (%) (Auto) 4, Eosinophils (%) (Auto) 0, Basophils (%) (Auto) 0, Neutrophils # (Auto) 8.3H, Lymphocytes # (Auto) 0.3L, Monocytes # (Auto) 0.4, Eosinophils # (Auto) 0.0, Basophils # (Au to) 0.0, Immature Granulocyte # (Auto) 0.1, Sodium Level 139, Potassium Level 3.1L, Chloride Level 109H, Carbon Dioxide Level 19L, Anion Gap 11, Blood Urea Nitrogen 12, Creatinine 0.55L, Estimat Glomerular Filtration Rate 97, BUN/Creatinine Ratio 22, Glucose Level 186H, Calcium Level 7.9L, Corrected Calcium 8.9, Phosphorus Level 1.6L, Magnesium Level 2.1, Total Bilirubin 0.3, Aspartate Amino Transf (AST/SGOT) 12, Alanine Aminotransferase (ALT/SGPT) 11, Alkaline Phosphatase 55, Total Protein 4.8L, Albumin 2.7L, Vancomycin Level Trough 18.4 Microbiology 07/24/21 Blood Culture - Preliminary, Resulted No growth 07/24/21 MRSA Screen - Final, Complete MRSA not isolated Assessment/Plan Assessment/Plan Assess & Plan/Chief Complaint Assessment: AF RVR placed on Cardizem drip and Lovenox therapeutic dose h/o ischemic cardiomyopathy managed by Dr Reed Acute on chronic respiratory distress Acute PNA HAP type placed on Cefepime and Vanc Sepsis AECOPD placed on IV steroids Elevated BNP Chronic hypoxia maintained on supplemental O2 at home Continued smoker Metabolic acidosis on admit HCO3 8 on admit now resolved Lactic acidosis Refractory hypokalemia Anemia Falls Right rib pain from fall with right knee pain Alcoholism with alcohol withdrawal acute now on CIWA Respiratory failure sent to [place] 08/2019 from [facility] Anxiety Lives alone without family involvement Hypothyroidism PVD Plan: Lovenox Cardizem Cardiology consult IV abx IV steroids CIWA Potassium supplementation O2 07/25/2021: eICU and cardiology appreciated Supportive care Alcohol withdrawal management 07/26/2021 Continue Haldol and Ativan Continue alcohol withdrawal management Supportive Care TENZIN SABA DO 07/27/21 0527: Subjective Subjective/Events-last exam Pt about the same Maintain on BiPAP 15/8 and FiO2 of 45% O2 Stat 96% Has one on one now Potassium 3.1 will be supplementing for protocol Poor prognosis Updated social work Review of Systems Neurological: Confusion Objective Exam General: Other (Patient making attempts to remove her BiPap, though she does not respond to questions. BiPap settings 15/8 @ 45% O2. Patient's O2 Saturation ranging from 84% to 92% while I was also in the room.) Lungs: Clear to Auscultation Heart: Regular Rate Assessment/Plan Assessment/Plan Assess & Plan/Chief Complaint BiPAP Precedex Antipsychotics for sedatives Supportive care Supervisory-Addendum Brief Verification & Attestation Participated in pt care: history, MDM, physical Personally performed: exam, history, MDM, supervision of care Care discussed with: Medical Student Procedures: n/a Results interpretation: Verified all documentation Verification and Attestation of Medical Student E/M Service A medical student performed and documented this service in my presence. I reviewed and verified all information documented by the medical student and made modifications to such information, when appropriate. I personally performed the physical exam and medical decision making. Tenzin Saba, Jul 27, 2021,05:26 KARELY DIA Jul 26, 2021 10:44 TENZIN SABA DO Jul 27, 2021 05:27
[2021-07-26] MEDS: DexMEDEtomidine 250 ML DRIP 250 ML IV SCH ×2 (10:55→23:39)
--- NOTE | 2021-07-26 11:01 | Physical Therapy Progress Note ---
Therapy Progress Note Patient on hold today after discussion with nurse. Patient has been very agitated and has been medicated and is drowsy. Nurse doesn't think patient would be able to follow any directions. Will check back tomorrow. GEO SAHU PT Jul 26, 2021 11:01
--- NOTE | 2021-07-26 11:10 | Occ Therapy Progress Note ---
Therapy Progress Note OT orders received and chart was reviewed. RN request to hold OT eval this date. Pt has been very agitated and is currently drowsy from medication. OT to check back 07/27/20 if pt is medically appropriate. Trudi Pruett OT Jul 26, 2021 11:10
[2021-07-26] MEDS: inSUlin ASPART (NovoLOG) 1 UNIT/0.01 ML (CHARGE PER UNIT) SC SCH ×3 (12:32→22:03)
[2021-07-26 14:13] VITALS: BP_DIAS 156
[2021-07-26] MEDS ORDERED: AMLO-251 PO (14:41)
[2021-07-26] MEDS ORDERED: FURO20TA4 PO (14:41)
[2021-07-26] MEDS ORDERED: POTA-179 PO (14:41)
[2021-07-26] MEDS ORDERED: MTP100TCR PO (14:41)
[2021-07-26] MEDS ORDERED: HYDR-3817 PO (14:41)
[2021-07-26] MEDS ORDERED: METO50TA7 PO (14:41)
[2021-07-26] MEDS ORDERED: LEVO88TA54 PO (14:41)
--- NOTE | 2021-07-26 15:27 | Diagnostic Imaging Report ---
Indication: Central line placement Portable chest 3:14 PM There are infiltrates present in the right midlung and at both lung bases. These are not significantly changed from earlier in the day. There is no appreciable effusion or pneumothorax. IMPRESSION: Stable chest with bilateral pulmonary infiltrates worse on the right than left. Dictated by: Dictated on workstation # [id number]
--- NOTE | 2021-07-26 17:49 | Physician Query Clarification ---
Physician Query-General Query to Physician: The medical record reflects the following clinical scenario: The patient, in the setting of History/Risk factors Smoker, COPD with home 02 use, PNA Clinical Findings continuous BiPAP for Greater than 12 hours, Vapotherm before that oxygen use as high as 65%, documentation of shortness of air at rest since admission, respiratory rate ranges between 12 to 28, Documentation of "If respiratory status not improved will intubate" 02 sats 89 to 91% on 2L and 93% on 6L Prior to Bipap (P/F = 69/44= 157) Treatment Supplemental 02, ICU monitoring, Bipap, Breathing RX, IV Solumedrol, Question: Do you agree with the impression of Acute Respiratory Failure per Dr. Ricardo Richards? 1. Yes; will document Acute (on chronic) Respiratory Failure, present on admission in the Progress Notes 2. No; will continue current documentation in the Progress Notes 3. Other; will document explanation of clinical findings 4. Clinically undetermined; no explanation for clinical findings Please clarify and document your clinical opinion in the Progress Notes and Discharge Summary including the definitive and/or presumptive diagnosis, (suspected or probable), related to the above clinical findings. Please include clinical findings supporting your diagnosis. In responding to this query, please exercise your independent professional judg ment. The purpose of this communication is to more accurately reflect the complexity of your patients condition. The fact that a question is asked does not imply that any particular answer is desired or expected. Please remember a lack of response to the above will prompt a phone page by CDI/coding staff Thank you for timely response to this clarification. Dai Juárez MSN, RN Clinical [employer] [phone] [email or web address] PHYSICIAN RESPONSE: Based on the clinical findings in the record, please respond to the query above on this document as an addendum. Physician Response: Physician Response 1 If you have questions please contact: Manager Grant: Ext: Thank you for your time and cooperation. Clinical [employer] Distributor/Manager Grant This is a permanent part of the medical record DAI JUÁREZ Jul 26, 2021 17:49 TENZIN SABA DO Jul 26, 2021 20:54
[2021-07-26 18:15] VITALS: BP_DIAS 156
[2021-07-26] MEDS: meTOprolol 5 MG/5 ML (LOPRESSOR) VIAL IV PRN (19:08)
[2021-07-26 22:28] VITALS: BP_DIAS 173
[2021-07-27] MEDS: CEFEPIME INJECTION 1,000 MG in NS (IVPB) 50 ML IV SCH ×4 (00:02→23:55)
[2021-07-27] MEDS: meTOprolol 5 MG/5 ML (LOPRESSOR) VIAL IV PRN ×2 (00:09→13:35)
[2021-07-27] MEDS: LORazepam INJ 2 MG/ML (ATIVAN) VIAL IV PRN ×3 (02:11→14:58)
[2021-07-27] MEDS: dilTIAZem DRIP PRE-MIX 125 ML IV SCH (02:33)
[2021-07-27] MEDS: RT-ALBUTEROL/IPRATROPIUM 3 ML (DUONEB) VIAL INH SCH ×6 (02:51→21:41)
[2021-07-27 02:52] VITALS: BP_DIAS 162
[2021-07-27 03:54] LABS: ALBUMIN 2.7 GM/DL (3.2-4.5); POTASSIUM 2.6 MMOL/L (3.6-5.0)
[2021-07-27 03:55] LABS: CALCIUM 7.9 MG/DL (8.5-10.1)
[2021-07-27 03:56] LABS: TOTAL PROTEIN 4.9 GM/DL (6.4-8.2)
[2021-07-27 03:58] LABS: BILIRUBIN,TOTAL 0.3 MG/DL (0.1-1.0)
[2021-07-27 03:59] LABS: PHOSPHORUS 2.1 MG/DL (2.3-4.7)
[2021-07-27 04:00] LABS: BASOPHILS % (AUTO) 0 % (0-10); CREATININE SERUM 0.56 MG/DL (0.60-1.30); EOSINOPHILS % (AUTO) 0 % (0-10); HEMATOCRIT 27 % (35-52); LYMPHOCYTES # (AUTO) 0.3 10^3/uL (1.0-4.0); LYMPHOCYTES % (AUTO) 4 % (12-44); MEAN CORPUSCULAR HEMOGLOBIN 30 pg (25-34); MEAN CORPUSCULAR HGB CONC 33 g/dL (32-36); MEAN CORPUSCULAR VOLUME 92 fL (80-99); MEAN PLATELET VOLUME 10.9 fL (9.0-12.2); MONOCYTES # (AUTO) 0.4 10^3/uL (0.0-1.0); MONOCYTES % (AUTO) 5 % (0-12); NEUTROPHILS # (AUTO) 6.2 10^3/uL (1.8-7.8); NEUTROPHILS % (AUTO) 90 % (42-75); PLATELET COUNT 217 10^3/uL (130-400); WHITE BLOOD COUNT 6.9 10^3/uL (4.3-11.0)
[2021-07-27 04:03] LABS: MAGNESIUM 1.7 MG/DL (1.6-2.4)
[2021-07-27] MEDS ORDERED: POTASSIUM CL 10MEQ/50ML IVPB 250 ML IV ONE (04:47)
[2021-07-27] MEDS ORDERED: MAGNESIUM 1 GM/100 ML IVPB 200 ML IV ONE (04:47)
[2021-07-27] MEDS: POTASSIUM CL 10MEQ/50ML IVPB 50 ML IV SCH ×6 (04:54→08:25)
[2021-07-27] MEDS: ENOXAPARIN 60 MG/0.6 ML (LOVENOX) SYR SC SCH ×2 (04:54→16:01)
[2021-07-27] MEDS: MAGNESIUM 1 GM/100 ML IVPB 100 ML IV SCH ×3 (04:55→05:47)
[2021-07-27] MEDS: KCL 20 MEQ TAB (K-DUR) PO SCH (05:47)
[2021-07-27] MEDS: MULTIVIT W/MINERALS TAB (THERAGRAN M) PO SCH (05:49)
[2021-07-27] MEDS: THIAMINE 100 MG (VITAMIN B-1) TAB PO SCH (05:49)
[2021-07-27] MEDS: inSUlin ASPART (NovoLOG) 1 UNIT/0.01 ML (CHARGE PER UNIT) SC SCH ×4 (05:55→20:59)
[2021-07-27] MEDS: methylPREDNISolone 40 MG/ML (Solu-MEDROL) VIAL IV SCH ×3 (05:56→21:00)
[2021-07-27 07:00] VITALS: BP_DIAS 153
[2021-07-27] MEDS: FOLIC ACID 1 MG TAB PO SCH (07:20)
[2021-07-27] MEDS: DOCUSATE SODIUM 100 MG (COLACE) CAP PO SCH ×2 (07:20→20:41)
[2021-07-27] MEDS: PANTOPRAZOLE 40 MG (PROTONIX) TAB PO SCH (07:20)
[2021-07-27] MEDS: SENNOSIDES 8.6 MG (SENOKOT) TAB PO SCH ×2 (07:21→20:41)
--- NOTE | 2021-07-27 07:35 | Diagnostic Imaging Report ---
INDICATION: Shortness of breath. COMPARISONS: 07/26/2021 FINDINGS: Single view of the chest shows the cardiac contour to be upper limits of normal. 5 lobe alveolar infiltrates are again seen right greater than left with more confluent consolidation in the left lower lobe.. The left lower lobe consolidation obscuring left diaphragmatic silhouette is also noted unchanged. There is aortic calcific atherosclerosis with tortuosity. There is a left IJ central line with the tip projected over the upper SVC. Soft tissues and bony thorax unremarkable. IMPRESSION: 1. 5 lobe alveolar consolidations more prominent in the lower lobes left greater than right. 2. Probable bilateral moderate effusions. 3. Stable left IJ central line. Dictated by: Dictated on workstation # [id number]
--- NOTE | 2021-07-27 08:36 | Cardiology Progress Note ---
Subjective Date Seen by Provider: Jul 27, 2021 Time Seen by Provider: 08:20 Subjective/Events-last exam Patient is on BiPAP, less agitated this morning. Review of Systems General: Other (Unable to provide review of system) Focused Exam Lactate Level 07/24/21 15:00: Lactic Acid Level 1.03 Objective-Cardiology Exam Last Set of Vital Signs Vital Signs 07/27/21 07/27/21 07/27/21 04:00 07:45 08:31 Temp 36.8 Pulse 93 Resp 17 B/P (MAP) 156/71 Pulse Ox 99 O2 Delivery NIV Bilevel O2 Flow Rate 30.00 FiO2 30 I&O Intake and Output 07/27/21 00:00 Intake Total 2000 ml Output Total 2875 ml Balance -875 ml Intake Oral 0 ml IV Total 2000 ml Output Urine Total 2875 ml General: Other (Patient making attempts to remove her BiPap, though she does not respond to questions. BiPap settings 15/8 @ 45% O2. Patient's O2 Saturation ranging from 84% to 92% while I was also in the room.) HEENT: Atraumatic Neck: Supple Lungs: Other (bilateral rhonchi) Heart: Regular Rate, Normal S1, Normal S2 Abdomen: Soft Extremities: No Clubbing, No Edema Skin: No Rashes, No Significant Lesion Neuro: Other (Lethargic and not following commands) Psych/Mental Status: Other (Not responding to questions, on BiPAP) Results Lab Laboratory Tests 07/27/21 03:30 A/P-Cardiology Admission Diagnosis PAF AE COPD Pneumonia HTN Assessment/Plan Ac exac of COPD due to pneumonia, currently on BiPAP, CXR showing worsening infiltrated, managed by Dr Pena and eICU, recommend COVID testing if not already done PAF with RVR. Currenlty in NSR on since 07/25/21. On Lovenox. Cardizem gtt restarted last night. Delirium and agitation: alcohol withdrawal suspected. Appears less agitated H/o nonischemic cardiomyopathy, improved, ejection fraction 50% on the last echo in [place] in September 2020 CAD, mod on card cath of 07/07 Hypertension, continue to monitor no changes are recommended Hyperlipidemia, intolerant to statin and fenofibrate, continue to monitor as outpatient. Hypothyroidism H/o tobacco use Moderate carotid artery stenosis Cerebral aneurysm-evaluated by Dr. Troy Stewart in [place], underwent cerebral angiogram, reported to have been advised conservative management. No h/o intracranial bleed Supervisory-Addendum Brief Supervisory Addendum Participated in pt care: history, MDM, physical Personally performed: exam, history, MDM Care discussed with: IVY Results interpretation: Verified all documentation Notes: Patient was seen and evaluated with Denise, I interviewed and examined the patient She is lethargic, on BiPAP Chest x-ray showed worsening infiltrate, I did not see Covid testing in her chart, recommend evaluating Covid Bacteria tachycardia with frequent APCs, started back on Cardizem drip. Continue on Cardizem and monitor Continue to monitor blood pressure. DENSIE GIRON Jul 27, 2021 08:36 TRES GASCA MD Jul 27, 2021 08:58
--- NOTE | 2021-07-27 09:23 | Physical Therapy Progress Note ---
Therapy Progress Note Patient on BiPap and sedated. Patient on hold at this time. Live sitter present due to patient agitation. ASIM STEELE PT Jul 27, 2021 09:23
--- NOTE | 2021-07-27 10:11 | Tele-ICU Progress Note ---
Subjective Date Seen by a Provider: Jul 27, 2021 Time Seen by a Provider: 10:11 Sepsis Event Evaluation Height, Weight, BMI Height: 5'67.00" Weight: 131lbs. 2.0oz. 59.236200tz; 18.33 BMI Method: Focused Exam Lactate Level 07/24/21 15:00: Lactic Acid Level 1.03 Exam Exam Patient acknowledged, consented, and participated in this virtual visit which was conducted using real time audio/video Vital Signs Date Time Temp Pulse Resp B/P (MAP) Pulse Ox O2 Delivery O2 Flow Rate FiO2 07/27/21 09:30 105 18 161/75 99 NIV Bilevel 30.00 07/27/21 09:15 105 16 160/74 98 NIV Bilevel 30.00 07/27/21 09:00 107 19 163/74 98 NIV Bilevel 30.00 07/27/21 08:45 113 32 158/71 94 NIV Bilevel 30.00 07/27/21 08:31 36.8 07/27/21 08:30 98 25 154/81 92 NIV Bilevel 30.00 07/27/21 08:15 93 21 156/69 98 NIV Bilevel 30.00 07/27/21 08:00 159/69 07/27/21 08:00 94 NIV Bilevel 30 07/27/21 07:45 93 17 156/71 99 NIV Bilevel 30.00 07/27/21 07:30 94 15 155/70 98 NIV Bilevel 30.00 07/27/21 07:15 93 11 155/67 98 NIV Bilevel 30.00 07/27/21 07:00 91 20 98 30.00 07/27/21 07:00 94 07/27/21 07:00 87 15 153/69 98 NIV Bilevel 30.00 07/27/21 06:00 95 17 158/69 98 NIV Bilevel 30.00 07/27/21 05:00 120 18 157/74 97 NIV Bilevel 30.00 07/27/21 04:00 93 NIV Bilevel 30 07/27/21 04:00 116 20 161/76 97 NIV Bilevel 30.00 07/27/21 03:15 124 20 164/86 96 NIV Bilevel 30.00 07/27/21 02:52 146 26 97 30.00 07/27/21 02:00 141 31 162/79 NIV Bilevel 30.00 07/27/21 01:00 133 07/27/21 01:00 133 20 175/82 91 NIV Bilevel 30.00 07/27/21 00:13 36.0 07/27/21 00:00 129 22 167/86 91 NIV Bilevel 30.00 07/27/21 00:00 93 NIV Bilevel 30 07/26/21 23:39 117 80/173 07/26/21 23:00 147 15 163/80 95 NIV Bilevel 30.00 07/26/21 22:28 117 22 95 30.00 07/26/21 22:00 121 12 173/80 97 NIV Bilevel 30.00 07/26/21 21:00 115 168/80 97 NIV Bilevel 30.00 07/26/21 20:00 114 26 171/78 96 NIV Bilevel 30.00 07/26/21 20:00 97 NIV Bilevel 30 07/26/21 19:19 36.8 116 26 167/75 97 NIV Bilevel 30.00 07/26/21 19:00 123 07/26/21 18:15 115 24 97 30.00 07/26/21 18:00 116 15 154/77 95 NIV Bilevel 35.00 07/26/21 17:00 103 27 135/88 96 NIV Bilevel 35.00 07/26/21 16:15 36.6 07/26/21 16:00 95 NIV Bilevel 40 07/26/21 16:00 112 16 166/72 84 NIV Bilevel 35.00 07/26/21 15:00 104 17 154/70 93 NIV Bilevel 35.00 07/26/21 14:19 NIV Bilevel 35.00 07/26/21 14:13 92 20 99 40.00 07/26/21 14:00 93 15 156/72 99 NIV Bilevel 40.00 07/26/21 13:00 100 16 165/74 96 NIV Bilevel 40.00 07/26/21 12:46 101 07/26/21 12:00 95 14 152/65 95 NIV Bilevel 40.00 07/26/21 12:00 94 NIV Bilevel 40 07/26/21 11:03 35.8 07/26/21 11:00 92 19 151/71 91 NIV Bilevel 40.00 07/26/21 10:55 87 145/68 07/26/21 10:55 NIV Bilevel 40.00 07/26/21 10:28 82 19 98 45.00 I & O 07/27/21 07:00 Intake Total 2350 ml Output Total 2600 ml Balance -250 ml Height & Weight Height: 5'67.00" Weight: 131lbs. 2.0oz. 59.982403xs; 18.33 BMI Method: General Appearance: Anxious, Chronically ill, Mild Distress (See free text), Thin HEENT: PERRL/EOMI, Normal ENT Inspection, Pharynx Normal Neck: Full Range of Motion, Normal Inspection, Non Tender, Supple, Carotid Bruit Respiratory: Accessory Muscle Use, Crackles, Decreased Breath Sounds Cardiovascular: No Edema, No Gallop, No JVD, No Murmur, Irregularly Irregular, Tachycardia Capillary Refill: Less Than 3 Seconds Peripheral Pulses: 1+ Dorsalis Pedis (R), 1+ Left Dors-Pedis (L) Gastrointestinal: soft, no organomegaly, no pulsatile mass Extremity: Normal Capillary Refill, Normal Inspection, Normal Range of Motion, Non Tender, No Calf Tenderness, No Pedal Edema Neurologic/Psychiatric: Alert, Oriented x3, No Motor/Sensory Deficits, flight communications officer II- XII Norm as Tested, Depressed Affect, Motor Weakness Skin: Normal Color, Warm/Dry Lymphatic: No Adenopathy Results Lab Laboratory Tests 07/26/21 05:05 07/27/21 03:30 Assessment/Plan Assessment/Plan (Tele-ICU Physician , Progress Note ) Available chart/ vitals / labs / Images reviewed Video assessment done using teleICU camera, rest of exam as per RN Discussed with RN , EXAM PER RN Events overnight : ploaced on BIPAP Afebrile FiO2 - 35% I/O = neg 500 Drips: cardizem gtt Pressors: , hemodynamically stable Consultants: mack Hospital course: (07/24) 71f admitted from OSH for A-fib/RVR and COPD.//Etoh w/d, hx cerebral aneurysm w/conservative mgt. - placed on BIPAP 15/8, 45 % rr 35 TV 350-450 with VO 07/27 - precedex 1.5 BIPAP 30% , resumed cardizem gtt - phenobarb x1 120 mg A/P Acute resp failure AE of CHF and COPD and PNA - BIPAP 15/8, 35 % rr 35 TV -450 -600 - will try to wean off and follow on NC AECOPD - SM 40 q 6- q8 today - nebs PNA ( PCT 22 on 07/24 - blood cx neg 07/24 , UA neg - cefepine and vanco 07/24 -> PAF with RVR - NSR on 07/25/21- cardizem gtt - hopefully to change to po soon - ECHO pending - as per cards - on AC lovenox 1/kg bid ETOH withdrawal suspected -Delirium and agitation - precedex 1.5 - benzo -folate and thiamine -add phenobarb x1 07/27 H/o non-ischemic CM , CAD, mod on card cath of 07/07 -ECHO 07/2021- - EF 45% ( EF 15 % in 2016 hyperglycemia - on steroids - follw Anemia - stable Hypokalemia - being replaced Moderate carotid artery stenosis Lines : left IJ 07/25 (Central Line Necessity Reviewed) [place]son: + OG: Nutrition: npo Analgesia: Anxiety/ delirium VTE Prophylaxis: alena 50 q 12 Stress Ulcer Prophylaxis: ppi Plans in collaboration with bedside consultants and IM MDs. Discussed with RN to reach out if any questions or concerns A total of 33 minutes of critical care time was devoted to this patient today, required to treat and/or prevent further deterioration of critical care condition ( as above) . DOUGLAS RYDER MD Jul 27, 2021 10:11
--- NOTE | 2021-07-27 10:51 | Occ Therapy Progress Note ---
Therapy Progress Note Patient currently on BiPap and sedated. OT to hold eval at this time. Live sitter present due to patient agitation. OT to attempt again 07/28/21 if medically appropriate. Trudi Pruett OT Jul 27, 2021 10:51
--- NOTE | 2021-07-27 11:22 | Progress Note ---
KARELY DIA 07/27/21 1122: Subjective Date Seen by a Provider: Jul 27, 2021 Time Seen by a Provider: 08:03 Subjective/Events-last exam CC: AF w/RVR with increased hypoxia in midst of ETOH withdrawal HPI: This is a 71yo clinic patient of Dorota Calixto NP in [place] who was moved from [facility] med-surg due to abrupt onset of AF RVR and no ICU nursing staff at [facility]. Patient was admitted earlier in the week for weakness and falls and found to have severe metabolic acidosis with lactic acidosis without evidence of sepsis or infection. required aggressive IVF and supportive care with CIWA and vitamin supplement due to continued binge alcohol consumption. Patient denied any use of alcohol when directly asked. Patient has smoking history and was having increased work of breathing while at [facility] during diagnosis of AF RVR so PNA was suspected and patient placed on emperic HAP treatment of Cefepime and Vancomycin and started AECOPD steroid dosing. Patient was also admitted in the past at [facility] for the same complaints severe metabolic acidosis and also denied use of ETOH at that time which caused a delay of diagnosing ETOH withdrawal and disrupted the plan for management. Patient also being consulted by Dr. Tiwari, Cardiology. Subjective/Events-last exam Patient is on BiPaap with settings 03/01 @ 30% O2 and saturating at 98% when I visited. Patient placed on precedex. Slept through most of the night but still had a few episodes of waking up agitated and trying to remove BiPap from her face Review of Systems General: Other (Asleep and not responsive to questions for ROS) Focused Exam Lactate Level 07/24/21 15:00: Lactic Acid Level 1.03 Objective Exam Last Set of Vital Signs Vital Signs Date Time Temp Pulse Resp B/P (MAP) Pulse Ox O2 Delivery O2 Flow Rate FiO2 07/27/21 10:45 105 161/75 07/27/21 10:35 99 High Flow N/C 5.00 07/27/21 09:30 18 07/27/21 08:31 36.8 07/27/21 08:00 30 Capillary Refill : Less Than 3 Seconds I&O Intake and Output 07/27/21 00:00 Intake Total 2000 ml Output Total 2875 ml Balance -875 ml Intake Oral 0 ml IV Total 2000 ml Output Urine Total 2875 ml General: No Acute Distress (patient sleeping), Other (BiPap settings 03/01 @ 30% O2. Patient's O2 Saturation at 90%) Lungs: Clear to Auscultation Heart: Regular Rate Results Lab Laboratory Tests 07/26/21 12:28: Glucometer 163H 07/26/21 17:19: Glucometer 147H 07/26/21 22:00: Glucometer 140H 07/27/21 03:30: White Blood Count 6.9, Red Blood Count 2.98L, Hemoglobin 9.0L, Hematocrit 27L, Mean Corpuscular Volume 92, Mean Corpuscular Hemoglobin 30, Mean Corpuscular Hemoglobin Concent 33, Red Cell Distribution Width 15.4H, Platelet Count 217, Mean Platelet Volume 10.9, Immature Granulocyte % (Auto) 1, Neutrophils (%) (Auto) 90H, Lymphocytes (%) (Auto) 4L, Monocytes (%) (Auto) 5, Eosinophils (%) (Auto) 0, Basophils (%) (Auto) 0, Neutrophils # (Auto) 6.2, Lymphocytes # (Auto) 0.3L, Monocytes # (Auto) 0.4, Eosinophils # (Auto) 0.0, Basophils # (Auto) 0.0, Immature Granulocyte # (Auto) 0.0, Sodium Level 143, Potassium Level 2.6L, Chloride Level 108H, Carbon Dioxide Level 22, Anion Gap 13, Blood Urea Nitrogen 12, Creatinine 0.56L, Estimat Glomerular Filtration Rate 97, BUN/Creatinine Ratio 21, Glucose Level 161H, Calcium Level 7.9L, Corrected Calcium 8.9, Phosphorus Level 2.1L, Magnesium Level 1.7, Total Bilirubin 0.3, Aspartate Amino Transf (AST/SGOT) 13, Alanine Aminotransferase (ALT/SGPT) 12, Alkaline Phosphatase 46, Total Protein 4.9L, Albumin 2.7L Microbiology 07/24/21 Blood Culture - Preliminary, Resulted No growth 07/24/21 MRSA Screen - Final, Complete MRSA not isolated Assessment/Plan Assessment/Plan Assess & Plan/Chief Complaint Assessment: AF RVR placed on Cardizem drip and Lovenox therapeutic dose h/o ischemic cardiomyopathy managed by Dr Reed Acute on chronic respiratory distress Acute PNA HAP type placed on Cefepime and Vanc Sepsis AECOPD placed on IV steroids Elevated BNP Chronic hypoxia maintained on supplemental O2 at home Continued smoker Metabolic acidosis on admit HCO3 8 on admit now resolved Lactic acidosis Refractory hypokalemia Anemia Falls Right rib pain from fall with right knee pain Alcoholism with alcohol withdrawal acute now on CIWA Respiratory failure sent to [facility] 08/2019 from [facility] Anxiety Lives alone without family involvement Hypothyroidism PVD Plan: Lovenox Cardizem Cardiology consult IV abx IV steroids CIWA Potassium supplementation O2 07/25/2021: eICU and cardiology appreciated Supportive care Alcohol withdrawal management 07/26/2021 Continue Haldol and Ativan Continue alcohol withdrawal management Supportive Care 07/27/2021 Precedex, Ativan, Haldol Alcohol withdrawal management BiPAP Supportive Care MADDIE SABA DO 07/28/21 0619: Subjective Subjective/Events-last exam Pt slept most of the night Some episodes she woke up agitated Hypokalemia at 2.6 will be supplemented BiPAP setting are 15/8 at 30% Prognosis guarded Review of Systems General: Fatigue, Malaise Neurological: Confusion Objective Exam General: Other (BiPap settings 15/8 @ 30% O2. Patient's O2 Saturation at 90%) Lungs: Clear to Auscultation Heart: Regular Rate Assessment/Plan Assessment/Plan Assess & Plan/Chief Complaint Prognosis poor Supervisory-Addendum Brief Verification & Attestation Participated in pt care: history, MDM, physical Personally performed: exam, history, MDM, supervision of care Care discussed with: Medical Student Procedures: n/a Results interpretation: Verified all documentation Verification and Attestation of Medical Student E/M Service A medical student performed and documented this service in my presence. I reviewed and verified all information documented by the medical student and made modifications to such information, when appropriate. I personally performed the physical exam and medical decision making. Maddie Saba, Jul 28, 2021,06:19 KARELY DIA Jul 27, 2021 11:22 MADDIE SABA DO Jul 28, 2021 06:19
[2021-07-27] MEDS: DexMEDEtomidine 250 ML DRIP 250 ML IV SCH (13:35)
[2021-07-27] MEDS: morphine INJ 4 MG/ML 1 ML (VIAL/SYRINGE) IV PRN ×3 (13:43→23:55)
[2021-07-27] MEDS: RT--FLUTICASONE/SALMETEROL 113-14 (AIRDUO RespiCLICK) IH SCH ×2 (14:23→21:41)
[2021-07-27] MEDS ORDERED: NS (IVPB) 100 ML ONE (19:35)
[2021-07-28] MEDS: DexMEDEtomidine 250 ML DRIP 250 ML IV SCH (02:25)
[2021-07-28] MEDS: RT-ALBUTEROL/IPRATROPIUM 3 ML (DUONEB) VIAL INH SCH ×6 (02:59→21:56)
[2021-07-28] MEDS: ENOXAPARIN 60 MG/0.6 ML (LOVENOX) SYR SC SCH ×2 (03:33→14:51)
[2021-07-28] MEDS ORDERED: NS (IVPB) 100 ML ONE (04:15)
[2021-07-28 04:18] LABS: BASOPHILS % (AUTO) 0 % (0-10); EOSINOPHILS % (AUTO) 0 % (0-10); HEMATOCRIT 27 % (35-52); HEMOGLOBIN 8.9 g/dL (11.5-16.0); LYMPHOCYTES # (AUTO) 0.3 10^3/uL (1.0-4.0); LYMPHOCYTES % (AUTO) 4 % (12-44); MEAN CORPUSCULAR HEMOGLOBIN 30 pg (25-34); MEAN CORPUSCULAR HGB CONC 33 g/dL (32-36); MEAN CORPUSCULAR VOLUME 92 fL (80-99); MEAN PLATELET VOLUME 10.5 fL (9.0-12.2); MONOCYTES # (AUTO) 0.7 10^3/uL (0.0-1.0); MONOCYTES % (AUTO) 9 % (0-12); NEUTROPHILS % (AUTO) 86 % (42-75); PLATELET COUNT 270 10^3/uL (130-400); WHITE BLOOD COUNT 8.2 10^3/uL (4.3-11.0)
[2021-07-28 04:27] LABS: ALBUMIN 2.8 GM/DL (3.2-4.5); POTASSIUM 2.7 MMOL/L (3.6-5.0)
[2021-07-28 04:30] LABS: TOTAL PROTEIN 4.9 GM/DL (6.4-8.2)
[2021-07-28 04:31] LABS: BILIRUBIN,TOTAL 0.3 MG/DL (0.1-1.0)
[2021-07-28 04:33] LABS: PHOSPHORUS 1.9 MG/DL (2.3-4.7)
[2021-07-28 04:34] LABS: CREATININE SERUM 0.61 MG/DL (0.60-1.30)
[2021-07-28 04:36] LABS: MAGNESIUM 1.9 MG/DL (1.6-2.4)
[2021-07-28] MEDS: KCL 20 MEQ TAB (K-DUR) PO SCH (04:37)
[2021-07-28] MEDS: MAGNESIUM 1 GM/100 ML IVPB 100 ML IV SCH (04:39)
[2021-07-28] MEDS: inSUlin ASPART (NovoLOG) 1 UNIT/0.01 ML (CHARGE PER UNIT) SC SCH ×4 (05:34→20:55)
[2021-07-28] MEDS: methylPREDNISolone 40 MG/ML (Solu-MEDROL) VIAL IV SCH ×3 (05:34→21:17)
[2021-07-28] MEDS: POTASSIUM CL 10MEQ/50ML IVPB 50 ML IV SCH ×8 (05:34→13:07)
[2021-07-28] MEDS: LORazepam INJ 2 MG/ML (ATIVAN) VIAL IV PRN ×6 (06:00→18:30)
[2021-07-28] MEDS: MULTIVIT W/MINERALS TAB (THERAGRAN M) PO SCH (06:00)
[2021-07-28] MEDS: morphine INJ 4 MG/ML 1 ML (VIAL/SYRINGE) IV PRN ×2 (06:20→21:17)
[2021-07-28] MEDS: RT--FLUTICASONE/SALMETEROL 113-14 (AIRDUO RespiCLICK) IH SCH ×2 (07:14→21:56)
--- NOTE | 2021-07-28 07:22 | Diagnostic Imaging Report ---
INDICATION: Shortness of breath. Comparison with 07/27/2021. FINDINGS: 5 lobe infiltrates are again noted. Moderate bilateral pleural effusions. There has been increase in bibasilar atelectasis when compared with previous exam. There is cardiomegaly. Pulmonary vasculature is prominent. IMPRESSION: 5 lobe infiltrates again noted with increasing pleural effusions and pulmonary venous congestion. Dictated by: Dictated on workstation # [id number]
[2021-07-28] MEDS: FOLIC ACID 1 MG TAB PO SCH (07:59)
[2021-07-28] MEDS: PANTOPRAZOLE 40 MG (PROTONIX) TAB PO SCH (07:59)
[2021-07-28] MEDS: CEFEPIME INJECTION 1,000 MG in NS (IVPB) 50 ML IV SCH ×2 (07:59→16:57)
[2021-07-28] MEDS: DOCUSATE SODIUM 100 MG (COLACE) CAP PO SCH ×2 (07:59→20:31)
[2021-07-28] MEDS: SENNOSIDES 8.6 MG (SENOKOT) TAB PO SCH ×2 (08:00→20:31)
--- NOTE | 2021-07-28 09:51 | Cardiology Progress Note ---
Subjective Date Seen by Provider: Jul 28, 2021 Time Seen by Provider: 09:49 Subjective/Events-last exam Patient lethargic this morning, but otherwise NAD. Review of Systems General: No Chills, No Night Sweats; Fatigue, Malaise; No Appetite, No Other HEENT: No Head Aches, No Visual Changes, No Eye Pain, No Ear Pain, No Dysphasia, No Sinus Congestion, No Post Nasal Drip, No Sore Throat, No Other Pulmonary: Dyspnea; No Cough, No Pleuritic Chest Pain, No Other Cardiovascular: No: Chest Pain, Palpitations, Orthopnea, Paroxysmal Noc. Dyspnea, Edema, Lt Headedness, Other Objective-Cardiology Exam Last Set of Vital Signs Vital Signs 07/27/21 07/28/21 07/28/21 07/28/21 08:00 11:00 12:00 13:28 Temp 37.4 Pulse 121 Resp 19 B/P (MAP) 149/86 Pulse Ox 88 O2 Delivery High Flow N/C O2 Flow Rate 8.00 FiO2 30 I&O Intake and Output 07/28/21 00:00 Intake Total 875 ml Output Total 1375 ml Balance -500 ml Intake Oral 0 ml IV Total 875 ml Output Urine Total 1375 ml General: Cooperative, Other (lethargic) HEENT: Atraumatic Neck: Supple Lungs: Clear to Auscultation Heart: Regular Rate Abdomen: Soft Extremities: No Clubbing, No Edema Skin: No Rashes, No Significant Lesion Neuro: Other (Lethargic and not following commands) Psych/Mental Status: Other Results Lab Laboratory Tests 07/28/21 04:10 A/P-Cardiology Admission Diagnosis PAF AE COPD Pneumonia HTN Assessment/Plan Ac exac of COPD due to pneumonia, currently on NC, CXR showing worsening i nfiltrated, managed by Dr Pena and eICU, recommend COVID testing if not already done PAF with RVR. Telemetry showing sinus tachycardia this mornon. On Lovenox, Cardizem gtt Delirium and agitation: alcohol withdrawal suspected. Appears less agitated H/o nonischemic cardiomyopathy, improved, ejection fraction 50% on the last echo in [place] in September 2020 CAD, mod on card cath of 07/07 Hypertension, continue to monitor no changes are recommended Hyperlipidemia, intolerant to statin and fenofibrate, continue to monitor as outpatient. Hypothyroidism H/o tobacco use Moderate carotid artery stenosis Cerebral aneurysm-evaluated by Dr. Troy Stewart in [place], underwent cerebral angiogram, reported to have been advised conservative management. No h/o intracranial bleed Supervisory-Addendum Brief Supervisory Addendum Participated in pt care: history, MDM, physical Personally performed: exam, history, MDM Care discussed with: IVY Results interpretation: Verified all documentation Notes: Patient was seen and evaluated with Denise, examination performed, management plan was discussed, agree with the current scribed note, I made few changes to the note using Italic font Patient was laying down in bed, not following commands. Noted to be tachycardic Started Lopressor IV in addition to the Cardizem drip Continue on Cardizem drip and titrate and monitor Continue with alcohol withdrawal protocol DENISE GIRON Jul 28, 2021 09:51 TRES GASCA MD Jul 28, 2021 14:46
--- NOTE | 2021-07-28 09:57 | Physical Therapy Evaluation ---
PT Evaluation-General Medical Diagnosis Admission Date Jul 24, 2021 at 14:39 Medical Diagnosis: AF w/RVR with increased hypoxia in midst of ETOH withdrawal Onset Date: Jul 24, 2021 Therapy Diagnosis Therapy Diagnosis: impaired mobility, strength, endurance Height/Weight Height (Feet): 5 Height (Inches): 67.00 Weight (Pounds): 131 Weight (Ounces): 2.0 Precautions Precautions/Isolations: Aspiration, Seizure, Fall Prevention, Standard Precautions, Pressure Ulcer Referral Physician: Maddie Pena DO Reason for Referral: Evaluation/Treatment Medical History Additional Medical History Past Medical History Respiratory: Pneumonia Cardiac: Atrial Fibrillation, Hypertension, Palpitations Reproductive: No Genitourinary: Bladder Infection Musculoskeletal: Arthritis, Gout Endocrine: Hypothyroidsim Hearing Impairment: Hard of Hearing Adverse Reaction to Blood Prather: No Reviewed History: Yes Social History Current Living Status: Alone Patient is unclear on this info but she states she has stairs to enter her home but doesn't say how many. Prior Prior Level of Function SCALE: Activities may be completed with or without assistive devices. 7-Eyimhivqaf-jiofhvw completes the activity by him/herself with no assistance from a helper. 5-Set-up or Clean-up Assistance-helper sets up or cleans up; patient completes activity. [place] assists only prior to or following the activity. 4-Supervision or Touching Assistance-helper provides verbal cues and/or touching/steadying and/or contact guard assistance as patient completes activity. Assistance may be provided throughout the activity or intermittently. 3-Partial/Moderate Assistance-helper does LESS THAN HALF the effort. [place] lifts, holds or supports trunk or limbs, but provides less than half the effort. 2-Substantial/Maximal Assistance-helper does MORE THAN HALF the effort. [place] lifts or holds trunk or limbs and provides more than half the effort. 0-Ufzphkphk-dbxiwp does ALL the effort. Patient does none of the effort to complete the activity. Or, the assistance of 2 or more helpers is required for the patient to complete the activity. If activity was not attempted, code reason: 7-Patient Refused. 9-Not Applicable-not attempted and the patient did not perform the activity before the current illness, exacerbation or injury. 10-Not Attempted due to Environmental Limitations-(lack of equipment, weather restraints, etc.). 88-Not Attempted due to Medical Conditions or Safety Concerns. Unknown for most of this but patient does say she does not use a walker. PT Evaluation-Current Subjective Patient in bed pre tx, agrees to PT, has no complaints of pain. Patient is now on a high flow nasal canula instead of bipap. She is awake with slightly open eyes. She does somewhat follow directions. Pt/Family Goals none stated Objective Patient Orientation: Person, Confused Attachments: Oxygen ROM/Strength ROM Lower Extremities WNL Strength Lower Extremities grossly 3+/5 BLE Sensory Hearing: Functional Treatment BLE AROM x10 (AP, HS, SLR) Assessment/Needs Patient has difficulty getting her O2 up to 90%. She spent most of the time between 84% and 88%, nurse in room trying to get O2 up. Because of this we didn't attempt to get patient to sit or stand today. Maybe attempt that tomorrow. Patient in bed post tx with nurse call, phone, tray, all needs met, legs on pillow with heel float for pressure relief. Rehab Potential: Guarded PT Group Home Goals Destination Sign Repairer Goals PT Destination Sign Repairer Goals Time Frame: Aug 04, 2021 Roll Left & Right (QC): 3 Sit to Lying (QC): 3 Lying-Sitting on Side/Bed(QC): 3 Sit to Stand (QC): 3 Chair/Pxg-hp-[place] Xfer(QC): 3 PT Plan Problem List Problem List: Activity Tolerance, Functional Strength, Safety, Balance, Gait, Transfer, Bed Mobility, ROM Treatment/Plan Treatment Plan: Continue Plan of Care Treatment Plan: Bed Mobility, Education, Functional Activity [place], Functional Strength, Gait, Safety, Therapeutic Exercise, Transfers Treatment Duration: Aug 04, 2021 Frequency: 6 times per week Estimated Hrs Per Day: .25 hour per day Patient and/or Family Agrees t: Yes Safety Risks/Education Patient Education: Correct Positioning, Safety Issues Teaching Recipient: Patient Teaching Methods: Demonstration, Discussion Response to Teaching: Reinforcement Needed Discharge Recommendations Plan Patient will perform bed mobility and transfer training, balance and endurance training,functional strengthening, stair training, gait training, and education, to improve functional mobility and independence at home. Therapy Discharge Recommendati: 24 Hour Supervision Time/GCodes Time In: 931 Time Out: 942 Total Billed Treatment Time: 11 Total Billed Treatment 1 visit LEO Flores' GEO SAHU PT Jul 28, 2021 09:57
--- NOTE | 2021-07-28 10:36 | History & Physical-Hospitalist ---
History of Present Illness HPI/Chief Complaint CC: AF w/RVR with increased hypoxia in midst of ETOH withdrawal HPI: This is a 71yoWF clinic patient of Dorota Calixto NP in [place] who was [place] [facility] [place] due to abrupt onset of AF RVR and no ICU nursing staff at [facility] [place] so she was moved to [facility] ICU for higher level of care with Cardiology assessment and placed on Lovenox and Cardizem drip. Patient was admitted earlier in the week for weakness and falls and found to have severe metabolic acidosis with lactic acidosis without evidence of sepsis or infection required aggressive IVF and supportive care with CIWA and vitamin supplement due to continued binge alcohol consumption which I confirmed with her PCP after I admitted her to [facility] because she denied any use of alcohol when I directly asked her. Patient continues to smoke and was having increased work of breathing while at [facility] during diagnosis of AF RVR so I suspected PNA so pancultured and placed on empiric HAP treatment of Cefepime and Vanc and checked ABG and started on AECOPD steroid dosing. To note, upon assessment of the patient at [facility] the RN noted she recognized the patient as an ICU patient admitted 08/2019 when she had presented with the same complaints with severe metabolic acidosis and she had denied alcohol use at that time giving rise to a delay of diagnosing ETOH withdrawal at that time EXACTLY the same as this time. I did not have access to the records from 08/2019 during this admit but was able to review my notes after I transferred the patient and noted she was not forthcoming with the alcohol use once again changing the entire medical management plan for her issues. Date Seen 07/28/21 Attending Physician Maddie Pena Wen-Chou MD Referring Physician Date of Admission Jul 24, 2021 at 14:39 Home Medications & Allergies Home Medications Reviewed patient Home Medication Reconciliation performed by pharmacy medication reconciliations x ray technician and/or nursing. Patients Allergies have been reviewed. Allergies Allergies Coded Allergies Sulfa (Sulfonamide Antibiotics) (Verified Allergy, Unknown, 07/07/15) Tetracyclines (Verified Allergy, Unknown, 07/07/15) Past Uhviuuh-[id number]-Qquxvd Hx Patient Social History Marrital Status: single Employed/Student: retired Smoking Status: Current Everyday Smoker Alcohol Use?: No Current Status Communicates: Verbally Primary Language: Guyanese Preferred Spoken Language: Guyanese Is interpretation needed?: No Past Medical History COPD Atrial Fibrillation, Hypertension, Palpitations Bladder Infection Arthritis, Gout Hypothyroidsim Hearing Impairment: Hard of Hearing Adverse Reaction/Blood Tranf: No Family Medical History Patient reports no known family medical history. No Pertinent Family Hx Physical Exam Physical Exam Vital Signs Vital Signs - First Documented 07/24/21 07/26/21 14:54 01:15 Temp 36.8 Pulse 130 Resp 17 B/P (MAP) 83/70 Pulse Ox 96 O2 Delivery Nasal Cannula O2 Flow Rate 5.00 FiO2 65 Capillary Refill : Less Than 3 Seconds Height, Weight, BMI Height: 5'67.00" Weight: 131lbs. 2.0oz. 59.552807uy; 18.33 BMI Method: Results Results/Procedures Labs Laboratory Tests 07/27/21 03:30 07/28/21 04:10 Patient resulted labs reviewed. Assessment/Plan Admission Diagnosis Assessment: AF RVR placed on Cardizem drip and Lovenox therapeutic dose h/o ischemic cardiomyopathy managed by Dr Reed Acute on chronic respiratory distress Acute PNA HAP type placed on Cefepime and Vanc Sepsis AECOPD placed on IV steroids Elevated BNP Chronic hypoxia maintained on supplemental O2 at home Continued smoker Metabolic acidosis on admit HCO3 8 on admit now resolved Lactic acidosis Refractory hypokalemia Anemia Falls Right rib pain from fall with right knee pain Alcoholism with alcohol withdrawal acute now on CIWA Respiratory failure sent to [place] 08[place]2019 [place] [facility] [place] Anxiety Lives alone without family involvement Hypothyroidism PVD Plan: Lovenox Cardizem Cardiology consult IV abx IV steroids CIWA Potassium supplementation O2 KARELY DIA Jul 28, 2021 10:36
[2021-07-28] MEDS: D5W 1000 ML IV SOLUTION 1,000 ML IV SCH (10:44)
--- NOTE | 2021-07-28 11:03 | Tele-ICU Progress Note ---
Subjective Date Seen by a Provider: Jul 28, 2021 Time Seen by a Provider: 11:03 Sepsis Event Evaluation Height, Weight, BMI Height: 5'67.00" Weight: 131lbs. 2.0oz. 59.252372qr; 18.33 BMI Method: Exam Exam Patient acknowledged, consented, and participated in this virtual visit which was conducted using real time audio/video Vital Signs Date Time Temp Pulse Resp B/P (MAP) Pulse Ox O2 Delivery O2 Flow Rate FiO2 07/28/21 10:04 94 High Flow N/C 5.00 07/28/21 09:44 92 High Flow N/C 7.00 07/28/21 08:14 163/75 07/28/21 08:00 102 18 154/65 93 Nasal Cannula 4.00 07/28/21 07:40 37.3 07/28/21 07:30 93 High Flow N/C 5.00 07/28/21 07:00 98 07/28/21 07:00 98 21 156/68 94 Nasal Cannula 4.00 07/28/21 06:00 108 19 160/71 90 Nasal Cannula 4.00 07/28/21 05:00 137 17 166/79 90 Nasal Cannula 4.00 07/28/21 04:25 114 168/74 07/28/21 04:00 122 16 160/66 94 Nasal Cannula 4.00 07/28/21 03:38 94 High Flow N/C 4.00 07/28/21 03:00 114 17 168/74 92 Nasal Cannula 4.00 07/28/21 02:59 92 High Flow N/C 4.00 07/28/21 02:25 112 157/68 07/28/21 02:00 91 18 139/77 91 Nasal Cannula 4.00 07/28/21 01:00 92 17 148/57 91 Nasal Cannula 4.00 07/28/21 01:00 92 07/28/21 00:13 94 High Flow N/C 4.00 07/28/21 00:00 112 15 157/68 93 Nasal Cannula 4.00 07/27/21 23:00 122 17 164/63 93 Nasal Cannula 4.00 07/27/21 22:00 112 13 144/75 94 Nasal Cannula 4.00 07/27/21 21:44 90 High Flow N/C 4.00 07/27/21 21:00 92 17 147/65 90 Nasal Cannula 4.00 07/27/21 20:00 113 16 149/59 92 Nasal Cannula 4.00 07/27/21 20:00 92 High Flow N/C 4.00 07/27/21 19:40 110 146/56 07/27/21 19:00 111 17 144/62 92 Nasal Cannula 4.00 07/27/21 19:00 36.8 07/27/21 19:00 111 07/27/21 18:45 110 18 146/56 93 High Flow N/C 4.00 07/27/21 18:31 91 High Flow N/C 4.00 07/27/21 18:30 111 18 153/66 94 High Flow N/C 4.00 07/27/21 18:15 108 17 155/66 91 High Flow N/C 4.00 07/27/21 18:00 109 17 155/67 91 High Flow N/C 4.00 07/27/21 17:45 111 18 157/65 91 High Flow N/C 4.00 07/27/21 17:30 115 13 160/67 91 High Flow N/C 4.00 07/27/21 17:15 108 18 150/63 92 High Flow N/C 4.00 07/27/21 17:00 109 18 143/61 92 High Flow N/C 4.00 07/27/21 16:45 110 17 145/62 92 High Flow N/C 4.00 07/27/21 16:30 110 18 153/61 91 High Flow N/C 4.00 07/27/21 16:15 111 18 157/67 93 High Flow N/C 4.00 07/27/21 16:00 94 High Flow N/C 4.00 07/27/21 16:00 109 17 151/65 93 07/27/21 16:00 High Flow N/C 4.00 07/27/21 15:54 37.6 07/27/21 15:45 118 20 160/71 90 High Flow N/C 3.00 07/27/21 15:30 114 19 162/65 88 High Flow N/C 3.00 07/27/21 15:15 121 16 156/69 89 High Flow N/C 3.00 07/27/21 15:00 159/84 07/27/21 14:45 118 17 144/66 90 High Flow N/C 3.00 07/27/21 14:30 112 21 145/68 94 High Flow N/C 3.00 07/27/21 14:23 91 Nasal Cannula 2.00 07/27/21 14:15 147/66 07/27/21 14:00 97 18 152/64 91 High Flow N/C 3.00 07/27/21 13:45 113 25 160/80 88 High Flow N/C 3.00 07/27/21 13:35 124 144/74 07/27/21 13:30 121 26 144/74 91 High Flow N/C 3.00 07/27/21 13:15 115 170/75 93 High Flow N/C 3.00 07/27/21 13:00 120 19 168/71 93 High Flow N/C 3.00 07/27/21 13:00 122 07/27/21 12:45 114 21 165/72 94 High Flow N/C 3.00 07/27/21 12:30 93 50 159/70 93 High Flow N/C 3.00 07/27/21 12:00 36.6 07/27/21 12:00 100 High Flow N/C 3.00 07/27/21 11:30 High Flow N/C 3.00 I & O 07/28/21 07:00 Intake Total 1100 ml Output Total 1500 ml Balance -400 ml Height & Weight Height: 5'67.00" Weight: 131lbs. 2.0oz. 59.787146an; 18.33 BMI Method: General Appearance: Anxious, Chronically ill, Mild Distress (See free text), Thin HEENT: PERRL/EOMI, Normal ENT Inspection, Pharynx Normal Neck: Full Range of Motion, Normal Inspection, Non Tender, Supple, Carotid Bruit Respiratory: Accessory Muscle Use, Crackles, Decreased Breath Sounds Cardiovascular: No Edema, No Gallop, No JVD, No Murmur, Irregularly Irregular, Tachycardia Capillary Refill: Less Than 3 Seconds Peripheral Pulses: 1+ Dorsalis Pedis (R), 1+ Left Dors-Pedis (L) Gastrointestinal: soft, no organomegaly, no pulsatile mass Extremity: Normal Capillary Refill, Normal Inspection, Normal Range of Motion, Non Tender, No Calf Tenderness, No Pedal Edema Neurologic/Psychiatric: Alert, Oriented x3, No Motor/Sensory Deficits, mental retardation nurse II- XII Norm as Tested, Depressed Affect, Motor Weakness Skin: Normal Color, Warm/Dry Lymphatic: No Adenopathy Results Lab Laboratory Tests 07/27/21 03:30 07/28/21 04:10 Assessment/Plan Assessment/Plan (Tele-ICU Physician , Progress Note ) Available chart/ vitals / labs / Images reviewed Video assessment done using teleICU camera, rest of exam as per RN Discussed with RN , EXAM PER RN Events overnight : Afebrile FiO2 - 5l I/O = neg 500 Drips: cardizem gtt Pressors: , hemodynamically stable Consultants: mack Hospital course: (07/24) 71f admitted from OSH for A-fib/RVR and COPD.//Etoh w/d, hx cerebral a neurysm w/conservative mgt. - placed on BIPAP 15, 45 % rr 35 TV 350-450 with VO 07/27 - precedex 1.5 BIPAP 30% , resumed cardizem gtt - phenobarb x1 120 mg 07/28 - off bipap 4 L NC , precedex 0.5 A/P Acute resp failure AE of CHF and COPD and PNA - BIPAP 15, 35 % rr 35 TV -450 -600 - will try to wean off and follow on NC AECOPD - SM 40 q 6- q8 today to cont with + wheezing - nebs PNA ( PCT 22 on 07/24 - blood cx neg 07/24 , UA neg - cefepine and vanco 07/24 -> PAF with RVR - NSR on 07/25/21- cardizem gtt 15 - hopefully to change to po soon - ECHO 45 % RVSP 25 - as per cards - on AC lovenox 1/kg bid ETOH withdrawal suspected -Delirium and agitation - precedex 0.5 -+benzo - trying to wean down precedex -folate and thiamine -add phenobarb x1 8 H/o non-ischemic CM , CAD, mod on card cath of 07/07 -ECHO 07/2021- - EF 45% ( EF 15 % in 2016 hyperglycemia - on steroids - follw Anemia - stable Hypokalemia - being replaced Moderate carotid artery stenosis Lines : left IJ 07/25 (Central Line Necessity Reviewed) [place]: + OG: Nutrition: npo Analgesia: Anxiety/ delirium VTE Prophylaxis: alena 50 q 12 Stress Ulcer Prophylaxis: ppi Plans in collaboration with bedside consultants and IM MDs. Discussed with RN to reach out if any questions or concerns A total of 33 minutes of critical care time was devoted to this patient today, required to treat and/or prevent further deterioration of critical care condition ( as above) . DOUGLAS RYDER MD Jul 28, 2021 11:03
--- NOTE | 2021-07-28 11:41 | Occupational Therapy Eval ---
OT Evaluation-General/PLF Medical Diagnosis Admission Date Jul 24, 2021 at 14:39 Medical Diagnosis: AF w/RVR with increased hypoxia in midst of ETOH withdrawal Onset Date: Jul 24, 2021 Therapy Diagnosis Therapy Diagnosis: reduced adl status Height/Weight Height (Feet): 5 Height (Inches): 67.00 Weight (Pounds): 131 Weight (Ounces): 2.0 Precautions Precautions/Isolations: Aspiration, Seizure, Fall Prevention, Standard Precautions, Pressure Ulcer Referral Physician: Maddie Pena DO Referral Reason: Evaluation/Treatment Medical History Pertinent Medical History: Atrial Fib, Arthritis, COPD, HTN Additional Medical History pneumonia, ETOH use Current History Pt currently confused, poor historian. No family present to verify accuracy of responses. Per patient, she lives alone and was indep with all adls and iadls. She reports that she was still driving and using a walker only when needed. Reviewed History: Yes Social History Home: Single Level Current Living Status: Alone ADL-Prior Level of Function SCALE: Activities may be completed with or without assistive devices. 9-Kjegnlqldc-kdgtbel completes the activity by him/herself with no assistance from a helper. 5-Set-up or Clean-up Assistance-helper sets up or cleans up; patient completes activity. [place] assists only prior to or following the activity. 4-Supervision or Touching Assistance-helper provides verbal cues and/or touching/steadying and/or contact guard assistance as patient completes activity. Assistance may be provided throughout the activity or intermittently. 3-Partial/Moderate Assistance-helper does LESS THAN HALF the effort. [place] lifts, holds or supports trunk or limbs, but provides less than half the effort. 2-Substantial/Maximal Assistance-helper does MORE THAN HALF the effort. [place] lifts or holds trunk or limbs and provides more than half the effort. 4-Kztecvata-hvbsao does ALL the effort. Patient does none of the effort to complete the activity. Or, the assistance of 2 or more helpers is required for the patient to complete the activity. If activity was not attempted, code reason: 7-Patient Refused. 9-Not Applicable-not attempted and the patient did not perform the activity before the current illness, exacerbation or injury. 10-Not Attempted due to Environmental Limitations-(lack of equipment, weather restraints, etc.). 88-Not Attempted due to Medical Conditions or Safety Concerns. Self Care: Unknown Functional Cognition: Unknown OT Current Status Subjective Pt confused, mumbled speech. Agreeable to eval Appearance Pt left supine in bed, all needs within reach. Mental Status/Objective Attachments: Stevens Catheter, IV, Oxygen (HIgh flow NC), Telemetry Current Glasses/Contacts: Yes Hearing Aids: No Dentures/Partials: No Hand Dominance: Left Upper Extremity ROM Difficulty following commands. Upper Extremity Strength Difficulty following commands. ADL-Treatment Oral Hygiene (QC): 2 Toileting Hygiene (QC): 1 (stevens catheter) Pt reclined in bed at OT arrival. Difficulty staying awake. Appears to fatigue quickly with little communication. Pt often with coughing spells during interview. CXR reveals worsening infiltrates. It appears pt has not been tested for COVID yet. Mod a to bring oral swab to mouth. Unsure if due to weakness, impaired coordination, or lethargy. Once removing oral swab, pt drooling at the mouth. HOHA to bring hand to face, dependent to wash all sides of face. Pt unsafe to transfer to EOB this date due to lethargy. Education OT Patient Education: Modified ADL techniques, Purpose of tx/functional activities, Safety issues, Use of adapted equipment Teaching Recipient: Patient Teaching Methods: Discussion Response to Teaching: Unable to Return Demonstration, Unable to Comprehend, Reinforcement Needed OT Commercial Food Instructor Goals Commercial Food Instructor Goals Time Frame: Aug 18, 2021 Eating (QC): 5 Oral Hygiene (QC): 5 Toileting Hygiene (QC): 3 Shower/Bathe Self (QC): 3 Upper Body Dressing (QC): 4 Lower Body Dressing (QC): 4 On/Off Footwear (QC): 3 1=Demonstrate adherence to instructed precautions during ADL tasks. 2=Patient will verbalize/demonstrate understanding of assistive devices/modifications for ADL. 3=Patient will improve strength/tolerance for activity to enable patient to perform ADL's. OT Education/Plan Problem List/Assessment Assessment: Decreased Activ Tolerance, Decreased Safety Aware, Decreased UE Strength, Impaired Cognition, Impaired Coordination, Impaired Funct Balance, Impaired I ADL's, Impaired Self-Care Skills, Restricted Funct UE ROM Discharge Recommendations Plan/Recommendations: Continue POC Therapy Discharge Recommendati: Post Acute OT Treatment Plan/Plan of Care Treatment,Training & Education: Yes Patient would benefit from OT for education, treatment and training to promote independence in ADL's, mobility, safety and/or upper extremity function for ADL's. Plan of Care: ADL Retraining, Cognitive Retraining, Functional Mobility, Group Exercise/Act as Ind, UE Funct Exercise/Act Treatment Duration: Aug 18, 2021 Frequency: 3 times per week (3-5x/week) Estimated Hrs Per Day: .25 hour per day Rehab Potential: Guarded Time/GCodes Start Time: 11:22 Stop Time: 11:35 Total Time Billed (hr/min): 13 Billed Treatment Time 1 visit Trudi Schmitt OT Jul 28, 2021 11:41
--- NOTE | 2021-07-28 12:33 | Progress Note ---
KARELY DIA 07/28/21 1233: Subjective Date Seen by a Provider: Jul 28, 2021 Time Seen by a Provider: 08:35 Subjective/Events-last exam CC: AF w/RVR with increased hypoxia in midst of ETOH withdrawal HPI: This is a 71yo clinic patient of Dorota Calixto NP in [place] who was moved from [facility] med-surg due to abrupt onset of AF RVR and no ICU nursing staff at [facility]. Patient was admitted earlier in the week for weakness and falls and found to have severe metabolic acidosis with lactic acidosis without evidence of sepsis or infection. required aggressive IVF and supportive care with CIWA and vitamin supplement due to continued binge alcohol consumption. Patient denied any use of alcohol when directly asked. Patient has smoking history and was having increased work of breathing while at [facility] during diagnosis of AF RVR so PNA was suspected and patient placed on emperic HAP treatment of Cefepime and Vancomycin and started AECOPD steroid dosing. Patient was also admitted in the past at [facility] for the same complaints severe metabolic acidosis and also denied use of ETOH at that time which caused a delay of diagnosing ETOH withdrawal and disrupted the plan for management. Patient also being consulted by Dr. Tiwari, Cardiology. Subjective/Events-last exam Patient was switched from BiPap to O2 by NC. On 4L O2 and saturating at 93% when I visited. Patient was awake but did not seem fully aware and alert. Her mental status overall seems depleted. Slept through most of the night with less agitation. Review of Systems General: Fatigue, Malaise Neurological: Confusion Objective Exam Last Set of Vital Signs Vital Signs Date Time Temp Pulse Resp B/P (MAP) Pulse Ox O2 Delivery O2 Flow Rate FiO2 07/28/21 12:00 37.4 07/28/21 11:00 121 19 149/86 95 High Flow N/C 5.00 07/27/21 08:00 30 Capillary Refill : Less Than 3 Seconds I&O Intake and Output 07/28/21 00:00 Intake Total 875 ml Output Total 1375 ml Balance -500 ml Intake Oral 0 ml IV Total 875 ml Output Urine Total 1375 ml General: Other (Awake but not alert or oriented.) Lungs: Normal Air Movement Heart: Regular Rate Other physical findings Patient now on 4L O2 by NC saturating at 93% when I visited Results Lab Laboratory Tests 07/27/21 18:13: Glucometer 155H 07/27/21 20:57: Glucometer 150H 07/28/21 00:21: Glucometer 80 07/28/21 04:10: White Blood Count 8.2, Red Blood Count 2.96L, Hemoglobin 8.9L, Hematocrit 27L, Mean Corpuscular Volume 92, Mean Corpuscular Hemoglobin 30, Mean Corpuscular Hemoglobin Concent 33, Red Cell Distribution Width 15.5H, Platelet Count 270, Mean Platelet Volume 10.5, Immature Granulocyte % (Auto) 1, Neutrophils (%) (Auto) 86H, Lymphocytes (%) (Auto) 4L, Monocytes (%) (Auto) 9, Eosinophils (%) (Auto) 0, Basophils (%) (Auto) 0, Neutrophils # (Auto) 7.0, Lymphocytes # (Auto) 0.3L, Monocytes # (Auto) 0.7, Eosinophils # (Auto) 0.0, Basophils # (Auto) 0.0, Immature Granulocyte # (Auto) 0.1, Sodium Level 146H, Potassium Level 2.7L, Chloride Level 111H, Carbon Dioxide Level 21, Anion Gap 14, Blood Urea Nitrogen 16, Creatinine 0.61, Estimat Glomerular Filtration Rate 95, BUN/Creatinine Ratio 26, Glucose Level 165H, Calcium Level 8.0L, Corrected Calcium 9.0, Phosphorus Level 1.9L, Magnesium Level 1.9, Total Bilirubin 0.3, Aspartate Amino Transf (AST/SGOT) 14, Alanine Aminotransferase (ALT/SGPT) 9, Alkaline Phosphatase 47, Total Protein 4.9L, Albumin 2.8L 07/28/21 05:26: Glucometer 162H 07/28/21 11:29: Glucometer 159H Microbiology 07/24/21 Blood Culture - Preliminary, Resulted No growth 07/24/21 MRSA Screen - Final, Complete MRSA not isolated Assessment/Plan Assessment/Plan Assess & Plan/Chief Complaint Assessment: AF RVR placed on Cardizem drip and Lovenox therapeutic dose h/o ischemic cardiomyopathy managed by Dr Reed Acute on chronic respiratory distress Acute PNA HAP type placed on Cefepime and Vanc Sepsis AECOPD placed on IV steroids Elevated BNP Chronic hypoxia maintained on supplemental O2 at home Continued smoker Metabolic acidosis on admit HCO3 8 on admit now resolved Lactic acidosis Refractory hypokalemia Anemia Falls Right rib pain from fall with right knee pain Alcoholism with alcohol withdrawal acute now on CIWA Respiratory failure sent to [place] 08/2019 from [facility] Anxiety Lives alone without family involvement Hypothyroidism PVD Plan: Lovenox Cardizem Cardiology consult IV abx IV steroids CIWA Potassium supplementation O2 07/25/2021: eICU and cardiology appreciated Supportive care Alcohol withdrawal management 07/26/2021 Continue Haldol and Ativan Continue alcohol withdrawal management Supportive Care 07/27/2021 Precedex, Ativan, Haldol Alcohol withdrawal management BiPAP Supportive Care 07/28/2021 Precedex, Ativan, Haldol Alcohol withdrawal management ow on 4L O2 by ME Supportive care MADDIE SABA DO 07/29/21 0548: Subjective Subjective/Events-last exam Pt is a little bit more awake but not by much Agitation at times when she is awake Remains on 4L of O2 Fast HR will likely require increase of Cardizem drip Review of Systems General: Fatigue, Malaise Neurological: Confusion Objective Exam General: Alert, No Acute Distress, Other (Awake but not alert or oriented.) Lungs: Normal Air Movement Heart: Other (Tachycardic and irregular) Assessment/Plan Assessment/Plan Assess & Plan/Chief Complaint Supportive care Supervisory-Addendum Brief Verification & Attestation Participated in pt care: history, MDM, physical Personally performed: exam, history, MDM, supervision of care Care discussed with: Medical Student Procedures: n/a Results interpretation: Verified all documentation Verification and Attestation of Medical Student E/M Service A medical student performed and documented this service in my presence. I reviewed and verified all information documented by the medical student and made modifications to such information, when appropriate. I personally performed the physical exam and medical decision making. Maddie Saba, Jul 29, 2021,05:47 KARELY DIA Jul 28, 2021 12:33 MADDIE SABA DO Jul 29, 2021 05:48
[2021-07-28] MEDS: meTOprolol 5 MG/5 ML (LOPRESSOR) VIAL IV SCH ×3 (13:04→23:01)
[2021-07-28 15:55] LABS: ABG BASE EXCESS 2.6 MMOL/L (-2.5-2.5); ABG OXYGEN SATURATION 96 % (94-100); ABG PCO2 35 MMHG (35-45); ABG PH 7.48 (7.37-7.43); ABG PO2 75 MMHG (79-93); ABG TCO2 26.9 MMOL/L (21.0-31.0)
[2021-07-28 15:56] LABS: ALLENS TEST YES-POS; INSPIRED O2 65%; PATIENT TEMP 37.2; VENTILATOR NO
[2021-07-28] MEDS ORDERED: FUROSEMIDE 40 MG/4 ML INJ (LASIX) IVP NR (17:00)
[2021-07-28] MEDS ORDERED: NS IV 1000 ML 1,000 ML IV SCH (20:30)
[2021-07-28] MEDS ORDERED: AMIODARONE FOR BOLUS 150 MG in NS (IVPB) 100 ML IV ONE (21:30)
[2021-07-28] MEDS ORDERED: D5W IV SOLUTION (EXCEL) 250 ML IV ONE (21:31)
[2021-07-28] MEDS ORDERED: AMIODARONE 450 MG/9 ML (CORDARONE) VIAL IV ONE (21:31)
[2021-07-28] MEDS ORDERED: AMIODARONE (BOLUS) 150 MG/3 ML IV ONE (21:31)
[2021-07-28] MEDS ORDERED: D5W 100 ML IVPB 100 ML IV ONE (21:31)
[2021-07-28] MEDS: AMIODARONE INJECTION 450 MG in D5W IV SOLUTION (EXCEL) 250 ML IV SCH (21:43)
[2021-07-29] MEDS: HALOPERIDOL 5 MG/ML (HALDOL) VIAL IM PRN (01:02)
[2021-07-29] MEDS: CEFEPIME INJECTION 1,000 MG in NS (IVPB) 50 ML IV SCH ×2 (01:02→08:05)
[2021-07-29 02:23] VITALS: BP_DIAS 138
[2021-07-29] MEDS: RT-ALBUTEROL/IPRATROPIUM 3 ML (DUONEB) VIAL INH SCH ×3 (02:23→10:52)
[2021-07-29 03:23] LABS: BASOPHILS % (AUTO) 0 % (0-10); EOSINOPHILS % (AUTO) 0 % (0-10); HEMATOCRIT 29 % (35-52); HEMOGLOBIN 9.5 g/dL (11.5-16.0); LYMPHOCYTES # (AUTO) 0.3 10^3/uL (1.0-4.0); LYMPHOCYTES % (AUTO) 3 % (12-44); MEAN CORPUSCULAR HEMOGLOBIN 31 pg (25-34); MEAN CORPUSCULAR HGB CONC 33 g/dL (32-36); MEAN CORPUSCULAR VOLUME 93 fL (80-99); MEAN PLATELET VOLUME 10.2 fL (9.0-12.2); MONOCYTES # (AUTO) 1.8 10^3/uL (0.0-1.0); MONOCYTES % (AUTO) 13 % (0-12); NEUTROPHILS # (AUTO) 11.5 10^3/uL (1.8-7.8); NEUTROPHILS % (AUTO) 83 % (42-75); PLATELET COUNT 344 10^3/uL (130-400); WHITE BLOOD COUNT 13.9 10^3/uL (4.3-11.0)
[2021-07-29 03:42] LABS: POTASSIUM 2.7 MMOL/L (3.6-5.0)
[2021-07-29] MEDS: ENOXAPARIN 60 MG/0.6 ML (LOVENOX) SYR SC SCH (03:42)
[2021-07-29 03:45] LABS: TOTAL PROTEIN 5.1 GM/DL (6.4-8.2)
[2021-07-29 03:46] LABS: BILIRUBIN,TOTAL 0.4 MG/DL (0.1-1.0)
[2021-07-29 03:48] LABS: CREATININE SERUM 0.7 MG/DL (0.60-1.30); PHOSPHORUS 1.9 MG/DL (2.3-4.7)
[2021-07-29] MEDS: POTASSIUM CL 10MEQ/50ML IVPB 50 ML IV SCH ×4 (03:48→06:01)
[2021-07-29] MEDS: KCL 20 MEQ TAB (K-DUR) PO SCH (03:48)
[2021-07-29] MEDS ORDERED: POTASSIUM CL 10MEQ/50ML IVPB 250 ML IV ONE (03:50)
[2021-07-29 03:52] LABS: MAGNESIUM 1.5 MG/DL (1.6-2.4)
[2021-07-29] MEDS: MAGNESIUM 1 GM/100 ML IVPB 100 ML IV SCH ×2 (04:00→04:10)
[2021-07-29] MEDS ORDERED: MAGNESIUM 1 GM/100 ML IVPB 200 ML IV ONE (04:02)
[2021-07-29] MEDS: MULTIVIT W/MINERALS TAB (THERAGRAN M) PO SCH (05:10)
[2021-07-29] MEDS: methylPREDNISolone 40 MG/ML (Solu-MEDROL) VIAL IV SCH (05:10)
[2021-07-29] MEDS: meTOprolol 5 MG/5 ML (LOPRESSOR) VIAL IV SCH ×2 (05:10→11:01)
[2021-07-29] MEDS: D5W 1000 ML IV SOLUTION 1,000 ML IV SCH (05:13)
[2021-07-29 05:22] VITALS: BP_SYST 140
[2021-07-29] MEDS: DexMEDEtomidine 250 ML DRIP 250 ML IV SCH (05:22)
[2021-07-29] MEDS: inSUlin ASPART (NovoLOG) 1 UNIT/0.01 ML (CHARGE PER UNIT) SC SCH ×2 (05:22→11:04)
[2021-07-29] MEDS: AMIODARONE INJECTION 450 MG in D5W IV SOLUTION (EXCEL) 250 ML IV SCH (07:26)
[2021-07-29] MEDS: RT--FLUTICASONE/SALMETEROL 113-14 (AIRDUO RespiCLICK) IH SCH (07:33)
--- NOTE | 2021-07-29 07:48 | Cardiology Progress Note ---
Subjective Date Seen by Provider: Jul 29, 2021 Time Seen by Provider: 07:47 Subjective/Events-last exam Patient is laying down in bed, lethargic. Had atrial fibrillation with rapid ventricular response last night, converted to sinus rhythm tonight, having some chest pain Review of Systems General: No Chills, No Night Sweats, No Fatigue, No Malaise, No Appetite, No Other HEENT: No Head Aches, No Visual Changes, No Eye Pain, No Ear Pain, No Dysphasia, No Sinus Congestion, No Post Nasal Drip, No Sore Throat, No Other Pulmonary: No Dyspnea, No Cough, No Pleuritic Chest Pain, No Other Cardiovascular: Chest Pain; No: Palpitations, Orthopnea, Paroxysmal Noc. Dyspnea, Edema, Lt Headedness, Other Objective-Cardiology Exam Last Set of Vital Signs Vital Signs 07/29/21 07/29/21 07/29/21 03:20 03:40 07:00 Temp 37.1 Pulse 99 Resp 19 B/P (MAP) 145/64 Pulse Ox 89 O2 Delivery Vapotherm O2 Flow Rate 35.00 85.00 FiO2 60 I&O Intake and Output 07/29/21 00:00 Intake Total 1523 ml Output Total 2900 ml Balance -1377 ml Intake Oral 20 ml IV Total 1503 ml Output Urine Total 2900 ml General: Alert, Cooperative, Mild Distress, Other (Awake but not alert or oriented.) HEENT: Atraumatic Neck: Supple Lungs: Normal Air Movement Heart: Regular Rate, Normal S1, Normal S2 Abdomen: Soft Extremities: No Clubbing, No Edema Skin: No Rashes, No Significant Lesion Neuro: Other (Lethargic and not following commands) Psych/Mental Status: Mood NL, Other Results Lab Laboratory Tests 07/29/21 03:15 A/P-Cardiology Admission Diagnosis PAF AE COPD Pneumonia HTN Assessment/Plan Ac exac of COPD due to pneumonia, currently on NC, CXR showing worsening infil trated, currently on Vapotherm, managed by Dr Pena and Anca PAF with RVR. Difficult to control heart rate, reached a maximum dose of Cardizem drip in addition to IV Lopressor and continue to be tachycardic, I added amiodarone last night, converted to sinus rhythm. I will continue monitoring Delirium and agitation: alcohol withdrawal suspected. Appears less agitated H/o nonischemic cardiomyopathy, improved, ejection fraction 50% on the last echo in [place] in September 2020 CAD, mod on card cath of 07/07 Hypertension, continue to monitor no changes are recommended Hyperlipidemia, intolerant to statin and fenofibrate, continue to monitor as outpatient. Hypothyroidism H/o tobacco use Moderate carotid artery stenosis Cerebral aneurysm-evaluated by Dr. Troy Stewart in [place], underwent cerebral angiogram, reported to have been advised conservative management. No h/o intracranial bleed TRES GASCA MD Jul 29, 2021 07:48
--- NOTE | 2021-07-29 07:56 | Progress Note ---
Objective Exam Last Set of Vital Signs Vital Signs Date Time Temp Pulse Resp B/P (MAP) Pulse Ox O2 Delivery O2 Flow Rate FiO2 07/29/21 07:00 99 07/29/21 07:00 19 145/64 89 Vapotherm 35.00 85.00 07/29/21 03:40 60 07/29/21 03:20 37.1 Capillary Refill : Less Than 3 Seconds I&O Intake and Output 07/29/21 00:00 Intake Total 1523 ml Output Total 2900 ml Balance -1377 ml Intake Oral 20 ml IV Total 1503 ml Output Urine Total 2900 ml Results Lab Laboratory Tests 07/28/21 11:29: Glucometer 159H 07/28/21 15:46: Blood Gas Puncture Site R RADIAL, Blood Gas Patient Temperature 37.2, Arterial Blood pH 7.48H, Arterial Blood Partial Pressure CO2 35, Arterial Blood Partial Pressure O2 75L, Arterial Blood HCO3 26, Arterial Blood Total CO2 26.9, Arterial Blood Oxygen Saturation 96, Arterial Blood Base Excess 2.6H, Giuseppe Test YES-POS, Blood Gas Ventilator Setting NO, Blood Gas Inspired Oxygen 65% 07/28/21 16:53: Glucometer 153H 07/28/21 20:38: Glucometer 163H 07/29/21 03:15: White Blood Count 13.9H, Red Blood Count 3.08L, Hemoglobin 9.5L, Hematocrit 29L, Mean Corpuscular Volume 93, Mean Corpuscular Hemoglobin 31, Mean Corpuscular Hemoglobin Concent 33, Red Cell Distribution Width 15.5H, Platelet Count 344, Mean Platelet Volume 10.2, Immature Granulocyte % (Auto) 1, Neutrophils (%) (Auto) 83H, Lymphocytes (%) (Auto) 3L, Monocytes (%) (Auto) 13H, Eosinophils (%) (Auto) 0, Basophils (%) (Auto) 0, Neutrophils # (Auto) 11.5H, Lymphocytes # (Auto) 0.3L, Monocytes # (Auto) 1.8H, Eosinophils # (Auto) 0.0, Basophils # (Auto) 0.0, Immature Granulocyte # (Auto) 0.2H, Sodium Level 144, Potassium Level 2.7L, Chloride Level 107, Carbon Dioxide Level 23, Anion Gap 14, Blood Urea Nitrogen 16, Creatinine 0.70, Estimat Glomerular Filtration Rate 92, BUN/Creatinine Ratio 23, Glucose Level 218H, Calcium Level 8.0L, Corrected Calcium 8.8, Phosphorus Level 1.9L, Magnesium Level 1.5L, Total Bilirubin 0.4, Aspartate Amino Transf (AST/SGOT) 13, Alanine Aminotransferase (ALT/SGPT) 12, Alkaline Phosphatase 52, Total Protein 5.1L, Albumin 3.0L 07/29/21 05:14: Glucometer 250H Microbiology 07/24/21 Blood Culture - Preliminary, Resulted No growth 07/24/21 MRSA Screen - Final, Complete MRSA not isolated Assessment/Plan Assessment/Plan Assess & Plan/Chief Complaint Supportive care Diagnosis/Problems Diagnosis/Problems (1) Atrial fibrillation with RVR (2) Alcohol withdrawal (3) Anxiety (4) Hypokalemia (5) Elevated brain natriuretic peptide (BNP) level (6) Ischemic cardiomyopathy (7) Falls (8) Alcoholism (9) Lives alone (10) Muscle weakness (11) Rib pain on right side (12) CHF (congestive heart failure) Status: Acute TENZIN SABA DO Jul 29, 2021 07:56
[2021-07-29 08:02] VITALS: BP_DIAS 162
[2021-07-29] MEDS: PANTOPRAZOLE 40 MG (PROTONIX) TAB PO SCH (08:06)
[2021-07-29] MEDS: SENNOSIDES 8.6 MG (SENOKOT) TAB PO SCH (08:06)
[2021-07-29] MEDS: DOCUSATE SODIUM 100 MG (COLACE) CAP PO SCH (08:06)
[2021-07-29] MEDS: FOLIC ACID 1 MG TAB PO SCH (08:06)
--- NOTE | 2021-07-29 08:11 | Diagnostic Imaging Report ---
CLINICAL INDICATION: Patient with dyspnea. EXAM: Portable chest x-ray semiupright view. COMPARISON: Chest x-ray dated 07/28/2021. FINDINGS: There is interval progression of amorphous patchy infiltrates involving the bilateral midlung cates. The remainder of the increased lung markings and patchy airspace opacities throughout both lungs have also slightly increased in the interim. Stable consolidation involving the left lung base. Stable suspected small left pleural effusion. There is no pneumothorax. Left central line again seen with tip overlying the mid to distal superior vena cava. There is cardiomegaly. Pulmonary vasculature is obscured. IMPRESSION: 1: There is diffuse bilateral lung infiltrates which has progressed in interim. 2: Stable suspected small left pleural effusion. Dictated by: Dictated on workstation # [id number]
--- NOTE | 2021-07-29 08:54 | Tele-ICU Progress Note ---
Subjective Date Seen by a Provider: Jul 29, 2021 Time Seen by a Provider: 08:53 Subjective/Events-last exam This patient with severe nonischemic cardiomyopathy with an estimated ejection fraction of 15 admitted with respiratory failure currently on a BiPAP. She also has atrial fibrillation with rapid ventricular rate for which she needed Cardizem and amiodarone drip currently converted to normal sinus rhythm. Chest x-ray showing bilateral infiltrate. More rales than rhonchi. Review of Systems ROS PER RN Sepsis Event Evaluation Height, Weight, BMI Height: 5'67.00" Weight: 131lbs. 2.0oz. 59.769815px; 18.33 BMI Method: Exam Exam Patient acknowledged, consented, and participated in this virtual visit which was conducted using real time audio/video Vital Signs Date Time Temp Pulse Resp B/P (MAP) Pulse Ox O2 Delivery O2 Flow Rate FiO2 07/29/21 08:10 93 NIV Bilevel 60 07/29/21 08:00 36.4 07/29/21 07:00 99 07/29/21 07:00 106 19 145/64 89 Vapotherm 35.00 85.00 07/29/21 06:00 95 18 112/71 90 Vapotherm 35.00 85.00 07/29/21 05:22 84 140/58 07/29/21 05:03 Vapotherm 35.00 85.00 07/29/21 05:00 96 15 140/58 96 NIV Bilevel 60.00 07/29/21 04:00 98 19 136/58 95 NIV Bilevel 60.00 07/29/21 03:40 95 NIV Bilevel 60 07/29/21 03:20 37.1 101 25 148/67 96 NIV Bilevel 60.00 07/29/21 03:00 147 18 148/67 94 NIV Bilevel 70.00 07/29/21 02:23 96 20 98 70.00 07/29/21 02:00 108 23 138/57 97 NIV Bilevel 70.00 07/29/21 01:00 138 07/29/21 01:00 138 20 124/76 91 NIV Bilevel 70.00 07/29/21 00:00 123 21 131/71 94 NIV Bilevel 70.00 07/28/21 23:25 NIV Bilevel 70.00 07/28/21 23:09 170 179/91 07/28/21 23:05 91 NIV Bilevel 50 07/28/21 23:03 36.9 172 33 179/91 91 NIV Bilevel 50.00 07/28/21 23:00 151 23 135/76 90 NIV Bilevel 50.00 07/28/21 22:25 NIV Bilevel 50.00 07/28/21 22:00 135 21 132/70 90 Vapotherm 35.00 85.00 07/28/21 21:56 90 Vapotherm 35.00 85 07/28/21 21:42 170 151/82 07/28/21 21:00 172 29 164/88 91 Vapotherm 35.00 85.00 07/28/21 20:00 170 26 143/76 91 Vapotherm 35.00 85.00 07/28/21 19:45 146 21 142/96 94 Vapotherm 35.00 85.00 07/28/21 19:40 94 Vapotherm 35.00 85 07/28/21 19:25 36.8 07/28/21 19:00 168 22 171/80 94 Vapotherm 35.00 85.00 07/28/21 19:00 118 07/28/21 18:17 94 Vapotherm 35.00 100 07/28/21 18:00 114 31 179/77 94 Vapotherm 40.00 85.00 07/28/21 17:30 110 31 174/86 89 Vapotherm 40.00 85.00 07/28/21 17:00 121 15 166/64 89 Vapotherm 40.00 85.00 07/28/21 16:38 94 Vapotherm 40.00 85.00 07/28/21 16:30 21 91 Vapotherm 65.00 07/28/21 16:00 112 25 186/77 89 Vapotherm 65.00 07/28/21 15:33 36.8 07/28/21 15:30 Vapotherm 35.00 65 07/28/21 15:10 Vapotherm 65.00 07/28/21 15:08 Vapotherm 30.00 65 07/28/21 15:00 96 20 169/75 98 High Flow N/C 9.00 07/28/21 14:58 92 High Flow N/C 8.00 07/28/21 14:48 90 High Flow N/C 9.00 07/28/21 14:00 102 23 157/84 92 High Flow N/C 8.00 07/28/21 13:28 88 High Flow N/C 8.00 07/28/21 13:00 122 18 166/80 93 High Flow N/C 5.00 07/28/21 13:00 111 07/28/21 12:00 112 13 163/77 91 High Flow N/C 5.00 07/28/21 12:00 High Flow N/C 5.00 07/28/21 12:00 37.4 07/28/21 11:00 121 19 149/86 95 High Flow N/C 5.00 07/28/21 10:30 93 High Flow N/C 5.00 07/28/21 10:04 94 High Flow N/C 5.00 07/28/21 10:00 138 17 177/78 95 High Flow N/C 7.00 07/28/21 09:44 92 High Flow N/C 7.00 07/28/21 09:00 152 33 169/73 88 Nasal Cannula 4.00 I & O 07/29/21 07:00 Intake Total 2648 ml Output Total 2735 ml Balance -87 ml Height & Weight Height: 5'67.00" Weight: 131lbs. 2.0oz. 59.347522dw; 18.33 BMI Method: General Appearance: Anxious, Chronically ill, Mild Distress (See free text), Thin HEENT: PERRL/EOMI, Normal ENT Inspection, Pharynx Normal Neck: Full Range of Motion, Normal Inspection, Non Tender, Supple, Carotid Bruit Respiratory: Accessory Muscle Use, Crackles, Decreased Breath Sounds Cardiovascular: No Edema, No Gallop, No JVD, No Murmur, Irregularly Irregular, Tachycardia Capillary Refill: Less Than 3 Seconds Peripheral Pulses: 1+ Dorsalis Pedis (R), 1+ Left Dors-Pedis (L) Gastrointestinal: soft, no organomegaly, no pulsatile mass Extremity: Normal Capillary Refill, Normal Inspection, Normal Range of Motion, Non Tender, No Calf Tenderness, No Pedal Edema Neurologic/Psychiatric: Alert, Oriented x3, No Motor/Sensory Deficits, diamond assorter II- XII Norm as Tested, Depressed Affect, Motor Weakness Skin: Normal Color, Warm/Dry Lymphatic: No Adenopathy Other comments PE PER RN Results Lab Laboratory Tests 07/28/21 04:10 07/29/21 03:15 Assessment/Plan Assessment/Plan 1. Severe nonischemic cardiomyopathy probably due to alcohol abuse with mild congestive heart failure decompensated 2. Atrial fibrillation with rapid ventricular rate improving 3. Alcohol withdrawal syndrome 4. Possible pneumonia 5. Acute hypoxic respiratory failure requiring BiPAP. Recommendations 1. Continue IV antibiotics 2. Continue BiPAP ventilation and wean FiO2. 3. We will decrease IV fluids to KVO 4. Correct electrolyte imbalance 5. We will give additional IV Lasix today and repeat BMP, mag and PHOS. 6. DVT prophylaxis and ulcer prophylaxis. Critical Care: Critically Ill Patient Time spent with patient (mins): 25 DHARA SANCHEZ MD Jul 29, 2021 08:54
[2021-07-29] MEDS ORDERED: FUROSEMIDE 40 MG/4 ML INJ (LASIX) IVP NR (09:16)
--- NOTE | 2021-07-29 09:41 | Physical Therapy Progress Note ---
Therapy Progress Note Patient on Hold per RN due to decline in respiratory status. Patient is currently on BiPap. Will attempt tomorrow. ASIM STEELE PT Jul 29, 2021 09:41
--- NOTE | 2021-07-29 09:43 | Occ Therapy Progress Note ---
Therapy Progress Note RN requests to hold OT treatment this date. Pt is now BiPap dependent and not appropriate for OT at this time. Trudi Pruett OT Jul 29, 2021 09:43
[2021-07-29] MEDS: morphine INJ 4 MG/ML 1 ML (VIAL/SYRINGE) IV PRN (12:44)
[2021-07-29] MEDS ORDERED: dilTIAZem DRIP PRE-MIX 125 ML IV SCH (12:45)
[2021-07-29 13:30] LABS: ABG BASE EXCESS 4.2 MMOL/L (-2.5-2.5); ABG OXYGEN SATURATION 90 % (94-100); ABG PCO2 37 MMHG (35-45); ABG PH 7.49 (7.37-7.43); ABG PO2 54 MMHG (79-93); ABG TCO2 28.8 MMOL/L (21.0-31.0)
[2021-07-29 13:33] LABS: ALLENS TEST YES-POS; INSPIRED O2 35L; PATIENT TEMP 36.5; VENTILATOR NO
[2021-07-29] MEDS ORDERED: METH40VI2 IV (14:17)
[2021-07-29] MEDS ORDERED: FOLI1TAB33 PO (14:17)
[2021-07-29] MEDS ORDERED: [UNRECOGNIZED DRUG - CODE] IV (14:17)
[2021-07-29] MEDS ORDERED: MULT-1137 PO (14:17)
[2021-07-29] MEDS ORDERED: [UNRECOGNIZED DRUG - CODE] IV (14:17)
[2021-07-29] MEDS ORDERED: IPRA3AMP31 INH (14:17)
[2021-07-29] MEDS ORDERED: CEFE1VIA4 IV (14:17)
[2021-07-29] MEDS ORDERED: ENOX60DI7 SC (14:17)
[2021-07-29] MEDS ORDERED: AMIO50VI IV (14:17)
[2021-07-29] MEDS ORDERED: Haloperidol Lactate IM (14:17)
[2021-07-29] MEDS ORDERED: POTA-169 PO (14:17)
[2021-07-29] MEDS ORDERED: METO5VIA26 IV (14:17)
[2021-07-29] MEDS ORDERED: FLUT1AER4 IH (14:17)
--- NOTE | 2021-07-29 14:18 | Discharge Summary ---
Diagnosis/Chief Complaint Date of Admission Jul 24, 2021 at 14:39 Date of Discharge Discharge Date: Jul 29, 2021 Discharge Diagnosis Assessment: AF RVR placed on Cardizem drip and amiodarone drip and Lovenox therapeutic dose h/o ischemic cardiomyopathy managed by Dr Reed Acute on chronic respiratory distress Acute PNA HAP type placed on Cefepime status post vancomycin now discontinued Sepsis AECOPD placed on IV steroids Solu-Medrol 40 mg IV daily Elevated BNP Chronic hypoxia maintained on supplemental O2 at home Continued smoker Metabolic acidosis on admit HCO3 8 on admit now resolved Lactic acidosis Refractory hypokalemia Anemia Falls Right rib pain from fall with right knee pain Alcoholism with alcohol withdrawal acute now on CIWA and Precedex Respiratory failure [place] [facility] [place] [facility] [place] Lives alone without family involvement Hypothyroidism PVD Plan: Lovenox Cardizem Cardiology consult IV abx IV steroids CIWA Potassium supplementation O2 07/25/2021: eICU and cardiology appreciated Supportive care Alcohol withdrawal management 07/26/2021 Continue Haldol and Ativan Continue alcohol withdrawal management Supportive Care 07/27/2021 Precedex, Ativan, Haldol Alcohol withdrawal management BiPAP Supportive Care 07/28/2021 Precedex, Ativan, Haldol Alcohol withdrawal management ow on 4L O2 by PA Supportive care 07/29/2021: Transfer to [facility] Discharge Summary Discharge Physical Examination Allergies: Coded Allergies: Sulfa (Sulfonamide Antibiotics) (Verified Allergy, Unknown, 07/07/15) Tetracyclines (Verified Allergy, Unknown, 07/07/15) Vitals & I&Os Vital Signs Date Time Temp Pulse Resp B/P (MAP) Pulse Ox O2 Delivery O2 Flow Rate FiO2 07/29/21 14:00 76 15 134/60 95 NIV Bilevel 65.00 07/29/21 12:44 36.2 07/29/21 11:05 100 General Appearance: Other (confused, sedated, agitated, thin frail) Respiratory: Clear to Auscultation Hospital Course Was the Problem List Reviewed?: Yes Pt had a lengthy hospital course for 6 days after I transferred her [place] [facility] [place] due to continued altered mental status and Hypoxia with Afib with RVR. She required Cardizem drip and now she is on an Amiodorone drip. She was given Lasix and diuresis required BiPAP and Vapotherm. Severe alcohol withdrawal was managed with Precedex and Ativan. Ultimately, she required [facility] transfer she had been there 2 years ago for the exact same issue alcohol withdrawal. Apparently after she left [facility] last time 2 years ago she went back to drinking. Her overall prognosis is extremely poor. Labs (last 24 hrs) Laboratory Tests 07/24/21 15:00: White Blood Count 9.2, Red Blood Count 2.82L, Hemoglobin 8.7L, Hematocrit 27L, Mean Corpuscular Volume 95, Mean Corpuscular Hemoglobin 31, Mean Corpuscular Hemoglobin Concent 33, Red Cell Distribution Width 15.0H, Platelet Count 182, Mean Platelet Volume 9.9, Immature Granulocyte % (Auto) 0, Neutrophils (%) (Auto) 81H, Lymphocytes (%) (Auto) 12, Monocytes (%) (Auto) 7, Eosinophils (%) (Auto) 0, Basophils (%) (Auto) 0, Neutrophils # (Auto) 7.4, Lymphocytes # (Auto) 1.1, Monocytes # (Auto) 0.6, Eosinophils # (Auto) 0.0, Basophils # (Auto) 0.0, Immature Granulocyte # (Auto) 0.0, Sodium Level 134L, Potassium Level 3.3L, Chloride Level 99, Carbon Dioxide Level 23, Anion Gap 12, Blood Urea Nitrogen 7, Creatinine 0.52L, Estimat Glomerular Filtration Rate 99, BUN/Creatinine Ratio 13, Glucose Level 106H, Lactic Acid Level 1.03, Calcium Level 8.4L, Corrected Calcium 9.3, Total Bilirubin 0.6, Aspartate Amino Transf (AST/SGOT) 22, Alanine Aminotransferase (ALT/SGPT) 14, Alkaline Phosphatase 56, Troponin I < 0.028, B- Type Natriuretic Peptide 594.2H, Total Protein 5.3L, Albumin 2.9L, Procalcitonin 21.81H 07/24/21 18:19: Glucometer 108 07/24/21 18:25: Blood Gas Puncture Site LEFT RADIAL, Blood Gas Patient Temperature 37.1, Arterial Blood pH 7.49H, Arterial Blood Partial Pressure CO2 36, Arterial Blood Partial Pressure O2 62L, Arterial Blood HCO3 27, Arterial Blood Total CO2 28.4, Arterial Blood Oxygen Saturation 93L, Arterial Blood Base Excess 4.0H, Giuseppe Sherry t YES-POS, Blood Gas Ventilator Setting NO, Blood Gas Inspired Oxygen 6% 07/24/21 20:12: Urine Color YELLOW, Urine Clarity CLEAR, Urine pH 6.0, Urine Specific [place] <=1.005, Urine Protein TRACEH, Urine Glucose (UA) NEGATIVE, Urine Ketones NEGATIVE, Urine Nitrite NEGATIVE, Urine Bilirubin NEGATIVE, Urine Urobilinogen 0.2, Urine Leukocyte Esterase NEGATIVE, Urine RBC (Auto) TRACE-IH, Urine RBC 2- 5H, Urine WBC NONE, Urine Squamous Epithelial Cells NONE, Urine Crystals NONE, Urine Bacteria TRACE, Urine Casts NONE, Urine Mucus NEGATIVE, Urine Culture Ind icated NO 07/25/21 00:02: Glucometer 196H 07/25/21 05:00: White Blood Count 6.1, Red Blood Count 2.89L, Hemoglobin 8.8L, Hematocrit 27L, Mean Corpuscular Volume 93, Mean Corpuscular Hemoglobin 30, Mean Corpuscular Hemoglobin Concent 33, Red Cell Distribution Width 14.9H, Platelet Count 157, Mean Platelet Volume 10.7, Immature Granulocyte % (Auto) 0, Neutrophils (%) (Auto) 94H, Lymphocytes (%) (Auto) 4L, Monocytes (%) (Auto) 2, Eosinophils (%) (Auto) 0, Basophils (%) (Auto) 0, Neutrophils # (Auto) 5.7, Lymphocytes # (Auto) 0.2L, Monocytes # (Auto) 0.1, Eosinophils # (Auto) 0.0, Basophils # (Auto) 0.0, Immature Granulocyte # (Auto) 0.0, Neutrophils % (Manual) 94, Lymphocytes % (Manual) 2, Monocytes % (Manual) 2, Band Neutrophils 2, Hypochromasia SLIGHT, Anisocytosis SLIGHT, Sodium Level 139, Potassium Level 3.2L, Chloride Level 105, Carbon Dioxide Level 22, Anion Gap 12, Blood Urea Nitrogen 9, Creatinine 0.54L, Estimat Glomerular Filtration Rate 98, BUN/Creatinine Ratio 17, Glucose Level 204H, Calcium Level 8.2L, Corrected Calcium 9.2, Phosphorus Level 2.0L, Magnesium Level 1.3L, Total Bilirubin 0.4, Aspartate Amino Transf (AST/SGOT) 17, Alanine Aminotransferase (ALT/SGPT) 12, Alkaline Phosphatase 58, Total Protein 5 .2L, Albumin 2.8L, Procalcitonin 16.50H 07/25/21 05:57: Glucometer 189H 07/25/21 11:30: Glucometer 252H 07/25/21 11:45: Glucometer 215H 07/25/21 17:16: Glucometer 268H 07/26/21 00:40: Glucometer 200H 07/26/21 04:26: Blood Gas Puncture Site NOT INDICATED, Blood Gas Patient Temperature 37.1, Arterial Blood pH 7.48H, Arterial Blood Partial Pressure CO2 30L, Arterial Blood Partial Pressure O2 88, Arterial Blood HCO3 22L, Arterial Blood Total CO2 23.1, Arterial Blood Oxygen Saturation 98, Arterial Blood Base Excess -0.9, Giuseppe Test NA, Blood Gas Ventilator Setting NO, Blood Gas Inspired Oxygen NOT INDICATED 07/26/21 05:05: White Blood Count 9.1, Red Blood Count 2.91L, Hemoglobin 8.9L, Hematocrit 27L, Mean Corpuscular Volume 92, Mean Corpuscular Hemoglobin 31, Mean Corpuscular Hemoglobin Concent 33, Red Cell Distribution Width 15.1H, Platelet Count 181, Mean Platelet Volume 10.8, Immature Granulocyte % (Auto) 1, Neutrophils (%) (Auto) 92H, Lymphocytes (%) (Auto) 3L, Monocytes (%) (Auto) 4, Eosinophils (%) (Auto) 0, Basophils (%) (Auto) 0, Neutrophils # (Auto) 8.3H, Lymphocytes # (Auto) 0.3L, Monocytes # (Auto) 0.4, Eosinophils # (Auto) 0.0, Basophils # (Auto) 0.0, Immature Granulocyte # (Auto) 0.1, Sodium Level 139, Potassium Level 3.1L, Chloride Level 109H, Carbon Dioxide Level 19L, Anion Gap 11, Blood Urea Nitrogen 12, Creatinine 0.55L, Estimat Glomerular Filtration Rate 97, BUN/Creatinine Ratio 22, Glucose Level 186H, Calcium Level 7.9L, Corrected Calcium 8.9, Phosphorus Level 1.6L, Magnesium Level 2.1, Total Bilirubin 0.3, Aspartate Amino Transf (AST/SGOT) 12, Alanine Aminotransferase (ALT/SGPT) 11, Alkaline Phosphatase 55, Total Protein 4.8L, Albumin 2.7L, Vancomycin Level Trough 18.4 07/26/21 12:28: Glucometer 163H 07/26/21 17:19: Glucometer 147H 07/26/21 22:00: Glucometer 140H 07/27/21 03:30: White Blood Count 6.9, Red Blood Count 2.98L, Hemoglobin 9.0L, Hematocrit 27L, Mean Corpuscular Volume 92, Mean Corpuscular Hemoglobin 30, Mean Corpuscular Hemoglobin Concent 33, Red Cell Distribution Width 15.4H, Platelet Count 217, Mean Platelet Volume 10.9, Immature Granulocyte % (Auto) 1, Neutrophils (%) (Auto) 90H, Lymphocytes (%) (Auto) 4L, Monocytes (%) (Auto) 5, Eosinophils (%) (Auto) 0, Basophils (%) (Auto) 0, Neutrophils # (Auto) 6.2, Lymphocytes # (Auto) 0.3L, Monocytes # (Auto) 0.4, Eosinophils # (Auto) 0.0, Basophils # (Auto) 0.0, Immature Granulocyte # (Auto) 0.0, Sodium Level 143, Potassium Level 2.6L, Chloride Level 108H, Carbon Dioxide Level 22, Anion Gap 13, Blood Urea Nitrogen 12, Creatinine 0.56L, Estimat Glomerular Filtration Rate 97, BUN/Creatinine Ratio 21, Glucose Level 161H, Mean Blood Glucose 100, Hemoglobin A1c 5.1, Calcium Level 7.9L, Corrected Calcium 8.9, Phosphorus Level 2.1L, Magnesium Level 1.7, Total Bilirubin 0.3, Aspartate Amino Transf (AST/SGOT) 13, Alanine Aminotransferase (ALT/SGPT) 12, Alkaline Phosphatase 46, Total Protein 4.9L, A lbumin 2.7L 07/27/21 11:31: Glucometer 150H 07/27/21 18:13: Glucometer 155H 07/27/21 20:57: Glucometer 150H 07/28/21 00:21: Glucometer 80 07/28/21 04:10: White Blood Count 8.2, Red Blood Count 2.96L, Hemoglobin 8.9L, Hematocrit 27L, Mean Corpuscular Volume 92, Mean Corpuscular Hemoglobin 30, Mean Corpuscular Hemoglobin Concent 33, Red Cell Distribution Width 15.5H, Platelet Count 270, Mean Platelet Volume 10.5, Immature Granulocyte % (Auto) 1, Neutrophils (%) (Auto) 86H, Lymphocytes (%) (Auto) 4L, Monocytes (%) (Auto) 9, Eosinophils (%) (Auto) 0, Basophils (%) (Auto) 0, Neutrophils # (Auto) 7.0, Lymphocytes # (Auto) 0.3L, Monocytes # (Auto) 0.7, Eosinophils # (Auto) 0.0, Basophils # (Auto) 0.0, Immature Granulocyte # (Auto) 0.1, Sodium Level 146H, Potassium Level 2.7L, Chloride Level 111H, Carbon Dioxide Level 21, Anion Gap 14, Blood Urea Nitrogen 16, Creatinine 0.61, Estimat Glomerular Filtration Rate 95, BUN/Creatinine Ratio 26, Glucose Level 165H, Calcium Level 8.0L, Corrected Calcium 9.0, Phosphorus Level 1.9L, Magnesium Level 1.9, Total Bilirubin 0.3, Aspartate Amino Transf (AST/SGOT) 14, Alanine Aminotransferase (ALT/SGPT) 9, Alkaline Phosphatase 47, Total Protein 4.9L, Albumin 2.8L 07/28/21 05:26: Glucometer 162H 07/28/21 11:29: Glucometer 159H 07/28/21 15:46: Blood Gas Puncture Site R RADIAL, Blood Gas Patient Temperature 37.2, Arterial Blood pH 7.48H, Arterial Blood Partial Pressure CO2 35, Arterial Blood Partial Pressure O2 75L, Arterial Blood HCO3 26, Arterial Blood Total CO2 26.9, Arterial Blood Oxygen Saturation 96, Arterial Blood Base Excess 2.6H, Giuseppe Test YES-POS, Blood Gas Ventilator Setting NO, Blood Gas Inspired Oxygen 65% 07/28/21 16:53: Glucometer 153H 07/28/21 20:38: Glucometer 163H 07/29/21 03:15: White Blood Count 13.9H, Red Blood Count 3.08L, Hemoglobin 9.5L, Hematocrit 29L, Mean Corpuscular Volume 93, Mean Corpuscular Hemoglobin 31, Mean Corpuscular Hemoglobin Concent 33, Red Cell Distribution Width 15.5H, Platelet Count 344, Mean Platelet Volume 10.2, Immature Granulocyte % (Auto) 1, Neutrophils (%) (Auto) 83H, Lymphocytes (%) (Auto) 3L, Monocytes (%) (Auto) 13H, Eosinophils (%) (Auto) 0, Basophils (%) (Auto) 0, Neutrophils # (Auto) 11.5H, Lymphocytes # (Auto) 0.3L, Monocytes # (Auto) 1.8H, Eosinophils # (Auto) 0.0, Basophils # (Auto) 0.0, Immature Granulocyte # (Auto) 0.2H, Sodium Level 144, Potassium Level 2.7L, Chloride Level 107, Carbon Dioxide Level 23, Anion Gap 14, Blood Urea Nitrogen 16, Creatinine 0.70, Estimat Glomerular Filtration Rate 92, BUN/Creatinine Ratio 23, Glucose Level 218H, Calcium Level 8.0L, Corrected Calcium 8.8, Phosphorus Level 1.9L, Magnesium Level 1.5L, Total Bilirubin 0.4, Aspartate Amino Transf (AST/SGOT) 13, Alanine Aminotransferase (ALT/SGPT) 12, Alkaline Phosphatase 52, Total Protein 5.1L, Albumin 3.0L 07/29/21 05:14: Glucometer 250H 07/29/21 10:46: Glucometer 169H 07/29/21 13:20: Blood Gas Puncture Site R RAD, Blood Gas Patient Temperature 36.5, Arterial Blood pH 7.49H, Arterial Blood Partial Pressure CO2 37, Arterial Blood Partial Pressure O2 54L, Arterial Blood HCO3 28H, Arterial Blood Total CO2 28.8, Arterial Blood Oxygen Saturation 90L, Arterial Blood Base Excess 4.2H, Giuseppe Test YES-POS, Blood Gas Ventilator Setting NO, Blood Gas Inspired Oxygen 35L 07/29/21 14:22: Sodium Level 143, Potassium Level 3.0L, Chloride Level 105, Carbon Dioxide Level 26, Anion Gap 12, Blood Urea Nitrogen 15, Creatinine 0.63, Estimat Glomerular Filtration Rate 94, BUN/Creatinine Ratio 24, Glucose Level 122H, Calcium Level 7.8L, Phosphorus Level 2.1L, Magnesium Level 1.9 Microbiology 07/24/21 Blood Culture - Preliminary, Resulted No growth 07/24/21 MRSA Screen - Final, Complete MRSA not isolated Pending Labs Microbiology Date/Time Source Procedure Growth Status 07/24/21 15:10 [place], Nos Blood Culture - Preliminary No growth Resulted 07/24/21 15:10 Peripheral Lt Hand Blood Culture - Preliminary No growth Resulted 07/24/21 14:52 Nasal MRSA Screen - Final MRSA not isolated Complete Laboratory Tests 07/24/21 15:00: White Blood Count 9.2, Red Blood Count 2.82, Hemoglobin 8.7, Hematocrit 27, Mean Corpuscular Volume 95, Mean Corpuscular Hemoglobin 31, Mean Corpuscular Hemoglobin Concent 33, Red Cell Distribution Width 15.0, Platelet Count 182, Mean Platelet Volume 9.9, Immature Granulocyte % (Auto) 0, Neutrophils (%) (Auto) 81, Lymphocytes (%) (Auto) 12, Monocytes (%) (Auto) 7, Eosinophils (%) (Auto) 0, Basophils (%) (Auto) 0, Neutrophils # (Auto) 7.4, Lymphocytes # (Auto) 1.1, Monocytes # (Auto) 0.6, Eosinophils # (Auto) 0.0, Basophils # (Auto) 0.0, Immature Granulocyte # (Auto) 0.0, Sodium Level 134, Potassium Level 3.3, Chlori de Level 99, Carbon Dioxide Level 23, Anion Gap 12, Blood Urea Nitrogen 7, Creatinine 0.52, Estimat Glomerular Filtration Rate 99, BUN/Creatinine Ratio 13, Glucose Level 106, Lactic Acid Level 1.03, Calcium Level 8.4, Corrected Calcium 9.3, Total Bilirubin 0.6, Aspartate Amino Transf (AST/SGOT) 22, Alanine Aminotransferase (ALT/SGPT) 14, Alkaline Phosphatase 56, Troponin I < 0.028, B- Type Natriuretic Peptide 594.2, Total Protein 5.3, Albumin 2.9, Procalcitonin 21.81 07/24/21 18:19: Glucometer 108 07/24/21 18:25: Blood Gas Puncture Site LEFT RADIAL, Blood Gas Patient Temperature 37.1, Arterial Blood pH 7.49, Arterial Blood Partial Pressure CO2 36, Arterial Blood Partial Pressure O2 62, Arterial Blood HCO3 27, Arterial Blood Total CO2 28.4, Arterial Blood Oxygen Saturation 93, Arterial Blood Base Excess 4.0, Giuseppe Test YES-POS, Blood Gas Ventilator Setting NO, Blood Gas Inspired Oxygen 6% 07/24/21 20:12: Urine Color YELLOW, Urine Clarity CLEAR, Urine pH 6.0, Urine Specific [place] <=1.005, Urine Protein TRACE, Urine Glucose (UA) NEGATIVE, Urine Ketones NEGATIVE, Urine Nitrite NEGATIVE, Urine Bilirubin NEGATIVE, Urine Urobilinogen 0.2, Urine Leukocyte Esterase NEGATIVE, Urine RBC (Auto) TRACE-I, Urine RBC 2-5, Urine WBC NONE, Urine Squamous Epithelial Cells NONE, Urine Crystals NONE, Urine Bacteria TRACE, Urine Casts NONE, Urine Mucus NEGATIVE, Urine Culture Indicated NO 07/25/21 00:02: Glucometer 196 07/25/21 05:00: White Blood Count 6.1, Red Blood Count 2.89, Hemoglobin 8.8, Hematocrit 27, Mean Corpuscular Volume 93, Mean Corpuscular Hemoglobin 30, Mean Corpuscular Hemoglobin Concent 33, Red Cell Distribution Width 14.9, Platelet Count 157, Mean Platelet Volume 10.7, Immature Granulocyte % (Auto) 0, Neutrophils (%) (Auto) 94, Lymphocytes (%) (Auto) 4, Monocytes (%) (Auto) 2, Eosinophils (%) ( Auto) 0, Basophils (%) (Auto) 0, Neutrophils # (Auto) 5.7, Lymphocytes # (Auto) 0.2, Monocytes # (Auto) 0.1, Eosinophils # (Auto) 0.0, Basophils # (Auto) 0.0, Immature Granulocyte # (Auto) 0.0, Neutrophils % (Manual) 94, Lymphocytes % (Manual) 2, Monocytes % (Manual) 2, Band Neutrophils 2, Hypochromasia SLIGHT, Anisocytosis SLIGHT, Sodium Level 139, Potassium Level 3.2, Chloride Level 105, Carbon Dioxide Level 22, Anion Gap 12, Blood Urea Nitrogen 9, Creatinine 0.54, Estimat Glomerular Filtration Rate 98, BUN/Creatinine Ratio 17, Glucose Level 204, Calcium Level 8.2, Corrected Calcium 9.2, Phosphorus Level 2.0, Magnesium Level 1.3, Total Bilirubin 0.4, Aspartate Amino Transf (AST/SGOT) 17, Alanine Aminotransferase (ALT/SGPT) 12, Alkaline Phosphatase 58, Total Protein 5.2, Albumin 2.8, Procalcitonin 16.50 07/25/21 05:57: Glucometer 189 07/25/21 11:30: Glucometer 252 07/25/21 11:45: Glucometer 215 07/25/21 17:16: Glucometer 268 07/26/21 00:40: Glucometer 200 07/26/21 04:26: Blood Gas Puncture Site NOT INDICATED, Blood Gas Patient Temperature 37.1, Arterial Blood pH 7.48, Arterial Blood Partial Pressure CO2 30, Arterial Blood Partial Pressure O2 88, Arterial Blood HCO3 22, Arterial Blood Total CO2 23.1, Arterial Blood Oxygen Saturation 98, Arterial Blood Base Excess -0.9, Giuseppe Test NA, Blood Gas Ventilator Setting NO, Blood Gas Inspired Oxygen NOT INDICATED 07/26/21 05:05: White Blood Count 9.1, Red Blood Count 2.91, Hemoglobin 8.9, Hematocrit 27, Mean Corpuscular Volume 92, Mean Corpuscular Hemoglobin 31, Mean Corpuscular Hemoglobin Concent 33, Red Cell Distribution Width 15.1, Platelet Count 181, Mean Platelet Volume 10.8, Immature Granulocyte % (Auto) 1, Neutrophils (%) (Auto) 92, Lymphocytes (%) (Auto) 3, Monocytes (%) (Auto) 4, Eosinophils (%) (Auto) 0, Basophils (%) (Auto) 0, Neutrophils # (Auto) 8.3, Lymphocytes # (Auto) 0.3, Monocytes # (Auto) 0.4, Eosinophils # (Auto) 0.0, Basophils # (Auto) 0.0, Immature Granulocyte # (Auto) 0.1, Sodium Level 139, Potassium Level 3.1, Chloride Level 109, Carbon Dioxide Level 19, Anion Gap 11, Blood Urea Nitrogen 12, Creatinine 0.55, Estimat Glomerular Filtration Rate 97, BUN/Creatinine Ratio 22, Glucose Level 186, Calcium Level 7.9, Corrected Calcium 8.9, Phosphorus Level 1.6, Magnesium Level 2.1, Total Bilirubin 0.3, Aspartate Amino Transf (AST/SGOT) 12, Alanine Aminotransferase (ALT/SGPT) 11, Alkaline Phosphatase 55, Total Protein 4.8, Albumin 2.7, Vancomycin Level Trough 18.4 07/26/21 12:28: Glucometer 163 07/26/21 17:19: Glucometer 147 07/26/21 22:00: Glucometer 140 07/27/21 03:30: White Blood Count 6.9, Red Blood Count 2.98, Hemoglobin 9.0, Hematocrit 27, Mean Corpuscular Volume 92, Mean Corpuscular Hemoglobin 30, Mean Corpuscular Hemogl obin Concent 33, Red Cell Distribution Width 15.4, Platelet Count 217, Mean Platelet Volume 10.9, Immature Granulocyte % (Auto) 1, Neutrophils (%) (Auto) 90, Lymphocytes (%) (Auto) 4, Monocytes (%) (Auto) 5, Eosinophils (%) (Auto) 0, Basophils (%) (Auto) 0, Neutrophils # (Auto) 6.2, Lymphocytes # (Auto) 0.3, Monocytes # (Auto) 0.4, Eosinophils # (Auto) 0.0, Basophils # (Auto) 0.0, Immature Granulocyte # (Auto) 0.0, Sodium Level 143, Potassium Level 2.6, Chloride Level 108, Carbon Dioxide Level 22, Anion Gap 13, Blood Urea Nitrogen 12, Creatinine 0.56, Estimat Glomerular Filtration Rate 97, BUN/Creatinine Ratio 21, Glucose Level 161, Mean Blood Glucose 100, Hemoglobin A1c 5.1, Calcium Level 7.9, Corrected Calcium 8.9, Phosphorus Level 2.1, Magnesium Level 1.7, Total Bilirubin 0.3, Aspartate Amino Transf (AST/SGOT) 13, Alanine Aminotransferase (ALT/SGPT) 12, Alkaline Phosphatase 46, Total Protein 4.9, Albumin 2.7 07/27/21 11:31: Glucometer 150 07/27/21 18:13: Glucometer 155 07/27/21 20:57: Glucometer 150 07/28/21 00:21: Glucometer 80 07/28/21 04:10: White Blood Count 8.2, Red Blood Count 2.96, Hemoglobin 8.9, Hematocrit 27, Mean Corpuscular Volume 92, Mean Corpuscular Hemoglobin 30, Mean Corpuscular Hemoglobin Concent 33, Red Cell Distribution Width 15.5, Platelet Count 270, Mean Platelet Volume 10.5, Immature Granulocyte % (Auto) 1, Neutrophils (%) (Auto) 86, Lymphocytes (%) (Auto) 4, Monocytes (%) (Auto) 9, Eosinophils (%) (Auto) 0, Basophils (%) (Auto) 0, Neutrophils # (Auto) 7.0, Lymphocytes # (Auto) 0.3, Monocytes # (Auto) 0.7, Eosinophils # (Auto) 0.0, Basophils # (Auto) 0.0, Immature Granulocyte # (Auto) 0.1, Sodium Level 146, Potassium Level 2.7, Chloride Level 111, Carbon Dioxide Level 21, Anion Gap 14, Blood Urea Nitrogen 16, Creatinine 0.61, Estimat Glomerular Filtration Rate 95, BUN/Creatinine Ratio 26, Glucose Level 165, Calcium Level 8.0, Corrected Calcium 9.0, Phosphorus Level 1.9, Magnesium Level 1.9, Total Bilirubin 0.3, Aspartate Amino Transf (AST/SGOT) 14, Alanine Aminotransferase (ALT/SGPT) 9, Alkaline Phosphatase 47, Total Protein 4.9, Albumin 2.8 07/28/21 05:26: Glucometer 162 07/28/21 11:29: Glucometer 159 07/28/21 15:46: Blood Gas Puncture Site R RADIAL, Blood Gas Patient Temperature 37.2, Arterial Blood pH 7.48, Arterial Blood Partial Pressure CO2 35, Arterial Blood Partial Pressure O2 75, Arterial Blood HCO3 26, Arterial Blood Total CO2 26.9, Arterial Blood Oxygen Saturation 96, Arterial Blood Base Excess 2.6, Giuseppe Test YES-POS, Blood Gas Ventilator Setting NO, Blood Gas Inspired Oxygen 65% 07/28/21 16:53: Glucometer 153 07/28/21 20:38: Glucometer 163 07/29/21 03:15: White Blood Count 13.9, Red Blood Count 3.08, Hemoglobin 9.5, Hematocrit 29, Mean Corpuscular Volume 93, Mean Corpuscular Hemoglobin 31, Mean Corpuscular Hemoglobin Concent 33, Red Cell Distribution Width 15.5, Platelet Count 344, Mean Platelet Volume 10.2, Immature Granulocyte % (Auto) 1, Neutrophils (%) (Auto) 83, Lymphocytes (%) (Auto) 3, Monocytes (%) (Auto) 13, Eosinophils (%) (Auto) 0, Basophils (%) (Auto) 0, Neutrophils # (Auto) 11.5, Lymphocytes # (Auto) 0.3, Monocytes # (Auto) 1.8, Eosinophils # (Auto) 0.0, Basophils # (Auto) 0.0, Immature Granulocyte # (Auto) 0.2, Sodium Level 144, Potassium Level 2.7, Chloride Level 107, Carbon Dioxide Level 23, Anion Gap 14, Blood Urea Nitrogen 16, Creatinine 0.70, Estimat Glomerular Filtration Rate 92, BUN/Creatinine Ratio 23, Glucose Level 218, Calcium Level 8.0, Corrected Calcium 8.8, Phosphorus Leve l 1.9, Magnesium Level 1.5, Total Bilirubin 0.4, Aspartate Amino Transf (AST/SGOT) 13, Alanine Aminotransferase (ALT/SGPT) 12, Alkaline Phosphatase 52, Total Protein 5.1, Albumin 3.0 07/29/21 05:14: Glucometer 250 07/29/21 10:46: Glucometer 169 07/29/21 13:20: Blood Gas Puncture Site R RAD, Blood Gas Patient Temperature 36.5, Arterial Blood pH 7.49, Arterial Blood Partial Pressure CO2 37, Arterial Blood Partial Pressure O2 54, Arterial Blood HCO3 28, Arterial Blood Total CO2 28.8, Arterial Blood Oxygen Saturation 90, Arterial Blood Base Excess 4.2, Giuseppe Test YES-POS, Blood Gas Ventilator Setting NO, Blood Gas Inspired Oxygen 35L 07/29/21 14:22: Sodium Level 143, Potassium Level 3.0, Chloride Level 105, Carbon Dioxide Level 26, Anion Gap 12, Blood Urea Nitrogen 15, Creatinine 0.63, Estimat Glomerular Fi ltration Rate 94, BUN/Creatinine Ratio 24, Glucose Level 122, Calcium Level 7.8, Phosphorus Level 2.1, Magnesium Level 1.9 Discharge Home Medications: Active Scripts Active Tab-A-Jojo Multivit with Iron (Multivitamin/Iron/Folic Acid) 1 Each Tablet 1 Ea PO DAILY@0700 7 Days Folic Acid 1 Mg Tablet 1 Mg PO DAILY 7 Days Solu-Medrol 40 mg Vial (Methylprednisolone Sod Succ/Pf) 40 Mg/1 Ml Vial 40 Mg IV DAILY 3 Days Fluticasone-Salmeterol 113-14 (Fluticasone/Salmeterol) 1 Each Aer.pow.ba 0 Each IH RTBID 7 Days Klor-Con M20 (Potassium Chloride) 20 Meq Tab.er.prt 40 Meq PO DAILY@0600 7 Days Precedex 1,000 Mcg/250 ml Btl (dexmedeTOMIDine in 0.9 % NaCL) 1,000 Mcg/250 Ml Infus..btl 1,000 Mcg IV UD 7 Days [Haloperidol Lactate] 5 MG/ML Inj 5 Mg IM Q4H PRN 7 Days Diltiazem 125Mg/125Ml-0.7%NaCl (dilTIAZem HCL in 0.9% NaCl) 125 Mg/125 Ml Plast..bag 125 Mg IV UD Metoprolol Tartrate 5 Mg/5 Ml Vial 5 Mg IV Q6HR 7 Days Amiodarone HCl 50 Mg/1 Ml Vial 50 Mg IV UD 3 Days Enoxaparin Sodium 60 Mg/0.6 Ml Syringe 50 Mg SC Q12H 7 Days Iprat-Albut 0.5-3(2.5) mg/3 ml (Ipratropium/Albuterol Sulfate) 3 Ml Ampul.neb 3 Ml INH RTQ4HR 7 Days Cefepime HCl 1 Gm Vial 1 Gm IV BID Reported Levothyroxine Sodium 88 Mcg Tablet 88 Mcg PO DAILY Instructions to patient/family Please see electronic discharge instructions given to patient. Diagnosis/Problems Diagnosis/Problems (1) Atrial fibrillation with RVR (2) Alcohol withdrawal (3) Anxiety (4) Hypokalemia (5) Elevated brain natriuretic peptide (BNP) level (6) Ischemic cardiomyopathy (7) Falls (8) Alcoholism (9) Lives alone (10) Muscle weakness (11) Rib pain on right side (12) CHF (congestive heart failure) Status: Acute TENZIN SABA DO Jul 29, 2021 14:18
[2021-07-29 14:50] LABS: CALCIUM 7.8 MG/DL (8.5-10.1)
[2021-07-29 14:54] LABS: CREATININE SERUM 0.63 MG/DL (0.60-1.30); PHOSPHORUS 2.1 MG/DL (2.3-4.7)
[2021-07-29 14:57] LABS: MAGNESIUM 1.9 MG/DL (1.6-2.4)
[2021-07-30] MEDS ORDERED: methylPREDNISolone 40 MG/ML (Solu-MEDROL) VIAL IV SCH (09:00)
--- NOTE | 2021-07-30 09:10 | Physician Query Clarification ---
PQ-Conflicting Diagnosis Admission/Discharge Admission Date: Jul 24, 2021 at 14:39 Discharge Date: Jul 29, 2021 at 15:00 Dr. Pena, The medical record reflects the following clinical scenario: History/Risk Factors: paroxysmal atrial fibrillation, pneumonia, COPDAE, acute systolic CHF, alcohol WD Clinical Findings: T 36.8, P 138, R 30, WBC 9.2, Lactic acid 1.03, BP 83/70 Treatment: IV Vancomycin, IV Cefepime Question: Do you agree with the impression of the sepsis after study?? H&P states Patient was admitted earlier in the week for weakness and falls and found to have severe metabolic acidosis with lactic acidosis without evidence of sepsis or infection. Then sepsis was listed in the assessment but not mentioned by any other provider. Please document a response in Progress Note or Discharge Summary. 1. Yes 2. No 3. Other, with explanation of clinical findings 4. Clinically undetermined, no explanation for clinical findings. PHYSICIAN RESPONSE Do you agree w/Consulting Dx?: Yes Please remember a lack of response to the above will prompt a phone page by CDI/Coding staff. In responding to this query, please exercise your independent professional judgment. The purpose of this communication is to more accurately reflect the complexity of your patients condition. The fact that a question is asked does not imply that any particular answer is desired or expected. Thank you for your timely response to this clarification. Requestors name: Molly THIS PHYSICIAN QUERY FORM IS A PERMANENT PART OF THE MEDICAL RECORD MOLLY CASSIDY Jul 30, 2021 09:10 TENZIN PENA DO Jul 30, 2021 20:56
== END 2021-07-29 15:00 | DRG 871 ==
LOC: ICU 14:39
PROVIDERS: ADMIT Internal Medicine; ATTEND Internal Medicine
PROC: 5A09457 Assistance with Respiratory Ventilation, 24-96 Consecutive Hours, Continuous Positive Airway Pressure (ICD-10-PCS; principal; 2021-07-26)
PROC: 5A0935A Assistance with Respiratory Ventilation, Less than 24 Consecutive Hours, High Flow/Velocity Cannula (ICD-10-PCS; 2021-07-27)
DX: A41.9 Sepsis, unspecified organism (principal); J18.9 Pneumonia, unspecified organism; J96.21 Acute and chronic respiratory failure with hypoxia; I50.21 Acute systolic (congestive) heart failure; J44.0 Chronic obstructive pulmonary disease with (acute) lower respiratory infection; J44.1 Chronic obstructive pulmonary disease with (acute) exacerbation; F10.231 Alcohol dependence with withdrawal delirium; E87.2 Acidosis; I48.0 Paroxysmal atrial fibrillation; I11.0 Hypertensive heart disease with heart failure; I25.5 Ischemic cardiomyopathy; I25.10 Atherosclerotic heart disease of native coronary artery without angina pectoris; F17.210 Nicotine dependence, cigarettes, uncomplicated; E87.6 Hypokalemia; E03.9 Hypothyroidism, unspecified; I08.1 Rheumatic disorders of both mitral and tricuspid valves; E78.5 Hyperlipidemia, unspecified; D64.9 Anemia, unspecified; F41.9 Anxiety disorder, unspecified; F32.A Depression, unspecified; R07.81 Pleurodynia; M25.561 Pain in right knee; R73.9 Hyperglycemia, unspecified; I73.9 Peripheral vascular disease, unspecified; I65.29 Occlusion and stenosis of unspecified carotid artery; I67.1 Cerebral aneurysm, nonruptured; M10.9 Gout, unspecified; I25.2 Old myocardial infarction; Z91.81 History of falling; Z79.82 Long term (current) use of aspirin; Z88.1 Allergy status to other antibiotic agents; Z88.2 Allergy status to sulfonamides
CPT/HCPCS: 36415; 71045; 80048; 80053; 80202; 81000; 82805; 82947; 83036; 83605; 83735; 83880; 84100; 84145; 84484; 85007; 85025; 85027; 87040; 87081; 93005; 93306; 94640; 94660

== ENCOUNTER 2021-09-15 10:36 | Inpatient (IN) | payer MEDICARE, OTHER ==
[~2021-09-15] VITALS: Ht 165 cm; Wt 46.0 kg
[~2021-09-15 10:36] MED LIST changes: +AMIO50VI IV; +CEFE1VIA4 IV; +ENOX60DI7 SC; +FLUT1AER4 IH; +FOLI1TAB33 PO; +FURO20TA4 PO; +HYDR-3817 PO; +Haloperidol Lactate IM; +IPRA3AMP31 INH; +LEVO88TA54 PO; +METH40VI2 IV; +METO5VIA26 IV; +MULT-1137 PO; +POTA-169 PO; +POTA-179 PO; +[UNRECOGNIZED DRUG - CODE] IV; +[UNRECOGNIZED DRUG - CODE] IV
[2021-09-15] MEDS ORDERED: RT-ALBUTEROL HFA 8.5 GM INHALER IH STA (10:49)
[2021-09-15] MEDS ORDERED: ACETAMINOPHEN 325 MG TABLET PO ONE (11:00)
[2021-09-15 11:14] LABS: BASOPHILS % (AUTO) 0 % (0-10); EOSINOPHILS # (AUTO) 0.3 10^3/uL (0.0-0.3); EOSINOPHILS % (AUTO) 3 % (0-10); HEMATOCRIT 30 % (35-52); HEMOGLOBIN 9.1 g/dL (11.5-16.0); LYMPHOCYTES # (AUTO) 2.4 10^3/uL (1.0-4.0); LYMPHOCYTES % (AUTO) 24 % (12-44); MEAN CORPUSCULAR HEMOGLOBIN 28 pg (25-34); MEAN CORPUSCULAR HGB CONC 31 g/dL (32-36); MEAN CORPUSCULAR VOLUME 90 fL (80-99); MEAN PLATELET VOLUME 11.2 fL (9.0-12.2); MONOCYTES # (AUTO) 0.7 10^3/uL (0.0-1.0); MONOCYTES % (AUTO) 7 % (0-12); NEUTROPHILS # (AUTO) 6.4 10^3/uL (1.8-7.8); NEUTROPHILS % (AUTO) 65 % (42-75); PLATELET COUNT 436 10^3/uL (130-400)
[2021-09-15 11:28] LABS: INR 1.4 (0.8-1.4); PROTHROMBIN TIME PATIENT 17.6 SEC (12.2-14.7)
[2021-09-15 11:36] LABS: ALBUMIN 3.5 GM/DL (3.2-4.5); BILIRUBIN,TOTAL 0.3 MG/DL (0.1-1.0); CALCIUM 9.3 MG/DL (8.5-10.1); CREATININE SERUM 0.81 MG/DL (0.60-1.30); MAGNESIUM 1.7 MG/DL (1.6-2.4); POTASSIUM 3.6 MMOL/L (3.6-5.0); TOTAL PROTEIN 6.6 GM/DL (6.4-8.2)
--- NOTE | 2021-09-15 12:20 | Diagnostic Imaging Report ---
INDICATION: Shortness of breath and fever Frontal chest obtained at 1203 hours p.m. compared to 08/27/2021. Heart is mildly enlarged. There are chronic interstitial changes with some superimposed new infiltrate in both lung bases, right greater than left. There is no pneumothorax or gross pleural fluid. IMPRESSION: Underlying chronic interstitial disease with new infiltrates in the lung bases, right greater than left. Superimposed pneumonia not excluded. Dictated by: Dictated on workstation # [id number]
[2021-09-15] MEDS ORDERED: PIPERACILLIN SODIUM/TAZOBACTAM 4.5 GM in NS (IVPB) 100 ML IV ONE (13:45)
[2021-09-15] MEDS ORDERED: KCL 10 MEQ TAB (MICRO K) PO ONE (13:45)
[2021-09-15] MEDS ORDERED: FUROSEMIDE 40 MG/4 ML INJ (LASIX) IVP ONE (13:45)
--- NOTE | 2021-09-15 14:12 | ED General ---
General Chief Complaint: Chest Pain Stated Complaint: CP Nursing Triage Note: PT BROUGHT IN BY [facility] FROM [facility] WITH COMPLAINT OF CP, SOA, FEVER. STATES HAS BEEN GOING ON FOR DAYS. Source of Information: Patient, EMS Exam Limitations: No Limitations History of Present Illness Date Seen by Provider: Sep 15, 2021 Time Seen by Provider: 10:38 Initial Comments This is 71-year-old woman presents to the emergency room via EMS from [facility] with complaints of chest pain, shortness of breath, and fever. Fever was noted by EMS in route. Chest pain is more of a chronic complaint but worse today. Patient was experiencing shortness of breath and was noted to be hypoxic at 88% on 4 L when EMS arrived to the facility. She normally does not wear oxygen support. Patient states she previously used supplemental oxygen but that had been recently discontinued. Patient's primary care provider is Dr. Zhang. Her snow blower is Dr. Reed. Patient has history of coronary artery disease and nonischemic cardiomyopathy with heart failure. She also has COPD. ASA 324 mg was given by EMS. Allergies and Home Medications Allergies Coded Allergies: Sulfa (Sulfonamide Antibiotics) (Verified Allergy, Unknown, 09/15/21) Tetracyclines (Verified Allergy, Unknown, 09/15/21) Patient Home Medication List Home Medication List Reviewed: Yes Amiodarone HCl (Amiodarone HCl) 50 Mg/1 Ml Vial, 50 MG IV UD Prescribed by: TENZIN SABA on 07/29/211416 Cefepime HCl (Cefepime HCl) 1 Gm Vial, 1 GM IV BID Prescribed by: TENZIN SABA on 07/29/211416 Enoxaparin Sodium (Enoxaparin Sodium) 60 Mg/0.6 Ml Syringe, 50 MG SC Q12H Prescribed by: TENZIN SABA on 07/29/211416 Fluticasone/Salmeterol (Fluticasone-Salmeterol 113-14) 1 Each Aer.pow.ba, 0 EACH IH RTBID Prescribed by: TENZIN SABA on 07/29/211416 Folic Acid (Folic Acid) 1 Mg Tablet, 1 MG PO DAILY Prescribed by: TENZIN SABA on 07/29/211416 Ipratropium/Albuterol Sulfate (Iprat-Albut 0.5-3(2.5) mg/3 ml) 3 Ml Ampul.neb, 3 ML INH RTQ4HR Prescribed by: TENZIN SABA on 07/29/211416 Levothyroxine Sodium (Levothyroxine Sodium) 88 Mcg Tablet, 88 MCG PO DAILY, (Reported) Entered as Reported by: NELLIE TANG on 07/26/21 1441 Methylprednisolone Sod Succ/Pf (Solu-Medrol 40 mg Vial) 40 Mg/1 Ml Vial, 40 MG IV DAILY Prescribed by: TENZIN SABA on 07/29/211416 Metoprolol Tartrate (Metoprolol Tartrate) 5 Mg/5 Ml Vial, 5 MG IV Q6HR Prescribed by: TENZIN SABA on 07/29/211416 Multivitamin/Iron/Folic Acid (Tab-A-Jojo Multivit with Iron) 1 Each Tablet, 1 EA PO DAILY@0700 Prescribed by: TENZIN SABA on 07/29/211416 Potassium Chloride (Klor-Con M20) 20 Meq Tab.er.prt, 40 MEQ PO DAILY@0600 Prescribed by: TENZIN SABA on 07/29/211416 [Haloperidol Lactate] 5 MG/ML INJ, 5 MG IM Q4H PRN for AGITATION Prescribed by: TENZIN SABA on 07/29/211416 dexmedeTOMIDine in 0.9 % NaCL (Precedex 1,000 Mcg/250 ml Btl) 1,000 Mcg/250 Ml Infus..btl, 1,000 MCG IV UD Prescribed by: TENZIN SABA on 07/29/211416 dilTIAZem HCL in 0.9% NaCl (Diltiazem 125Mg/125Ml-0.7%NaCl) 125 Mg/125 Ml Plast..bag, 125 MG IV UD Prescribed by: TENZIN SABA on 07/29/211416 Review of Systems Review of Systems Constitutional: see HPI EENTM: no symptoms reported Respiratory: see HPI Cardiovascular: see HPI Gastrointestinal: no symptoms reported Genitourinary: no symptoms reported : No Musculoskeletal: no symptoms reported Skin: no symptoms reported Psychiatric/Neurological: No Symptoms Reported Hematologic/Lymphatic: No Symptoms Reported Past Rnnjqfj-Aaxcjr-Rzqxtn Hx Patient Social History Tobacco Use?: No Use of E-Cig and/or Vaping dev: No Substance use?: No Alcohol Use?: No Pt feels they are or have been: No Immunizations Up To Date First/Initial COVID19 Vaccinat: RECEIVED, UNSURE WHEN Second COVID19 Vaccination Pato: RECEIVED, UNSURE WHEN Third COVID19 Vaccination Date: RECEIVED, UNSURE WHEN Past Medical History Surgeries: Yes Cardiac (Cardiac catheterization) Respiratory: Yes COPD Cardiac: Yes Atrial Fibrillation, Coronary Artery Disease (Nonobstructive disease), Hypertension, Palpitations, Peripheral Vascular Neurological: No : No Reproductive Disorders: No Genitourinary: Yes Bladder Infection Gastrointestinal: No Musculoskeletal: Yes Arthritis, Gout Endocrine: Yes Hypothyroidsim HEENT: Yes Hearing Impairment: Hard of Hearing Cancer: No Psychosocial: No Adverse Reaction/Blood Tranf: No Family Medical History Patient reports no known family medical history. No Pertinent Family Hx Physical Exam-Suspected Sepsis Physical Exam Vital Signs Vital Signs - First Documented 09/15/21 09/15/21 10:43 15:43 Temp 36.8 Pulse 124 Resp 27 B/P (MAP) 115/91 (99) Pulse Ox 96 O2 Delivery Nasal Cannula O2 Flow Rate 4.00 FiO2 36 Capillary Refill : Less Than 3 Seconds Blood Pressure Mean: 99 Height, Weight, BMI Height: 5'67.00" Weight: 131lbs. 2.0oz. [id number]; 17.00 BMI Method: General Appearance: WD/WN, Mild Distress HEENT: PERRL/EOMI, Normal ENT Inspection Neck: Normal Inspection; No JVD Respiratory: Lungs Clear, No Accessory Muscle Use, Decreased Breath Sounds, Other (Prolonged expiratory phase with accessory muscle use during expiration) Cardiovascular: No Edema, Irregularly Irregular, Tachycardia Gastrointestinal: Non Tender, Soft Extremity: Normal Inspection, Non Tender, No Pedal Edema Neurologic/Psychiatric: Alert, Oriented x3, No Motor/Sensory Deficits, container finisher II- XII Norm as Tested, Other (Anxious) Skin: normal color, warm/dry Focused Exam Lactate Level 09/15/21 10:50: Lactic Acid Level 1.29 Lactic Acid Level Progress/Results/Core Measures Suspected Sepsis SIRS Temperature: Pulse: 124 Respiratory Rate: 27 Laboratory Tests 09/15/21 10:50: White Blood Count 10.0 Blood Pressure 115 /91 Mean: 99 09/15/21 10:50: Lactic Acid Level 1.29 Laboratory Tests 09/15/21 10:50: Creatinine 0.81, INR Comment 1.4, Platelet Count 436H, Total Bilirubin 0.3 Results/Orders Lab Results Laboratory Tests Test 09/15/21 10:50 09/15/21 14:05 Range/Units White Blood Count 10.0 4.3-11.0 10^3/uL Red Blood Count 3.31 L 3.80-5.11 10^6/uL Hemoglobin 9.1 L 11.5-16.0 g/dL Hematocrit 30 L 35-52 % Mean Corpuscular Volume 90 80-99 fL Mean Corpuscular Hemoglobin 28 25-34 pg Mean Corpuscular Hemoglobin Concent 31 L 32-36 g/dL Red Cell Distribution Width 15.0 H 10.0-14.5 % Platelet Count 436 H 130-400 10^3/uL Mean Platelet Volume 11.2 9.0-12.2 fL Immature Granulocyte % (Auto) 1 % Neutrophils (%) (Auto) 65 42-75 % Lymphocytes (%) (Auto) 24 12-44 % Monocytes (%) (Auto) 7 0-12 % Eosinophils (%) (Auto) 3 0-10 % Basophils (%) (Auto) 0 0-10 % Neutrophils # (Auto) 6.4 1.8-7.8 10^3/uL Lymphocytes # (Auto) 2.4 1.0-4.0 10^3/uL Monocytes # (Auto) 0.7 0.0-1.0 10^3/uL Eosinophils # (Auto) 0.3 0.0-0.3 10^3/uL Basophils # (Auto) 0.0 0.0-0.1 10^3/uL Immature Granulocyte # (Auto) 0.1 0.0-0.1 10^3/uL Prothrombin Time 17.6 H 12.2-14.7 SEC INR Comment 1.4 0.8-1.4 Activated Partial Thromboplast Time 37 H 24-35 SEC Sodium Level 142 135-145 MMOL/L Potassium Level 3.6 3.6-5.0 MMOL/L Chloride Level 106 98-107 MMOL/L Carbon Dioxide Level 23 21-32 MMOL/L Anion Gap 13 5-14 MMOL/L Blood Urea Nitrogen 18 7-18 MG/DL Creatinine 0.81 0.60-1.30 MG/DL Estimat Glomerular Filtration Rate 77 BUN/Creatinine Ratio 22 Glucose Level 82 70-105 MG/DL Lactic Acid Level 1.29 0.50-2.00 MMOL/L Calcium Level 9.3 8.5-10.1 MG/DL Corrected Calcium 9.7 8.5-10.1 MG/DL Magnesium Level 1.7 1.6-2.4 MG/DL Total Bilirubin 0.3 0.1-1.0 MG/DL Aspartate Amino Transf (AST/SGOT) 11 5-34 U/L Alanine Aminotransferase (ALT/SGPT) 12 0-55 U/L Alkaline Phosphatase 76 40-136 U/L Myoglobin 31.5 10.0-92.0 NG/ML Troponin I 0.034 H < 0.028 <0.028 NG/ML C-Reactive Protein High Sensitivity 5.06 H 0.00-0.50 MG/DL B-Type Natriuretic Peptide 1237.5 H <100.0 PG/ML Total Protein 6.6 6.4-8.2 GM/DL Albumin 3.5 3.2-4.5 GM/DL Procalcitonin 0.03 <0.10 NG/ML Influenza Type A (RT-PCR) Not Detected Not Detecte Influenza Type B (RT-PCR) Not Detected Not Detecte SARS-CoV-2 RNA (RT-PCR) Not Detected Not Detecte Thyroid Stimulating Hormone (TSH) 0.35 0.35-4.94 UIU/ML Free Thyroxine 1.34 0.70-1.48 NG/DL My Orders Orders - JOANN CONKLIN MD Cbc With Automated Diff (09/15/21 10:49) Magnesium (09/15/21 10:49) Chest 1 View, Ap/Pa Only (09/15/21 10:49) Ekg Tracing (09/15/21 10:49) Comprehensive Metabolic Panel (09/15/21 10:49) Myoglobin Serum (09/15/21 10:49) Protime With Inr (09/15/21 10:49) Partial Thromboplastin Time (09/15/21 10:49) O2 (09/15/21 10:49) Monitor-Rhythm Ecg Trace Only (09/15/21 10:49) Lipid Panel (09/16/21 06:00) Ed Iv/Invasive Line Start (09/15/21 10:49) Bnp Cherry (09/15/21 10:49) Troponin I Cherry (09/15/21 10:49) Hs C Reactive Protein (09/15/21 10:49) Procalcitonin (Pct) (09/15/21 10:49) Covid 19 Inhouse Test (09/15/21 10:49) Influenza A And B By Pcr (09/15/21 10:49) Blood Culture (09/15/21 10:49) Urinalysis (09/15/21 10:49) Urine Culture (09/15/21 10:49) Vital Signs Adult Sepsis Patie Q15M (09/15/21 10:49) Remove Rings In Anticipation O (09/15/21 10:49) Lactic Acid Analyzer (09/15/21 10:49) Albuterol Inhaler (Albuterol) (09/15/21 10:49) Acetaminophen Tablet/Caplet (Tylenol T (09/15/21 11:00) Troponin I Matthew (09/15/21 13:40) Piperacillin Sodium/Tazobactam (Zosyn Vi (09/15/21 13:45) Potassium Chloride (Tablet) (Klor Con Ta (09/15/21 13:45) Furosemide Injection (Lasix Injection) (09/15/21 13:45) Aspirin Chewable Tablet (Baby Aspirin Ch (09/15/21 14:15) Thyroid Stimulating Hormone (09/15/21 15:05) Free T4 (Free Thyroxine) (09/15/21 15:05) Medications Given in ED Current Medications Medications Dose Ordered Sig/Flroa Route Start Time Stop Time Status Last Admin Dose Admin Acetaminophen 650 mg ONCE ONCE PO 09/15/21 11:00 09/15/21 11:01 DC 09/15/21 11:07 650 MG Furosemide 10 mg ONCE ONCE IVP 09/15/21 13:45 09/15/21 13:46 DC 09/15/21 14:39 10 MG Piperacillin Sod/ Tazobactam Sod 4.5 gm/Sodium Chloride 100 ml @ 200 mls/hr ONCE ONCE IV 09/15/21 13:45 09/15/21 14:14 DC 09/15/21 14:39 200 MLS/HR Potassium Chloride 20 meq ONCE ONCE PO 09/15/21 13:45 09/15/21 13:46 DC 09/15/21 14:39 20 MEQ Vital Signs/I&O 09/15/21 09/15/21 09/15/21 09/15/21 10:43 10:43 14:51 15:30 Temp 36.8 37.4 Pulse 124 98 98 Resp 27 20 18 B/P (MAP) 115/91 (99) 100/71 104/66 (79) Pulse Ox 96 95 91 O2 Delivery Nasal Cannula Nasal Cannula Nasal Cannula Nasal Cannula O2 Flow Rate 4.00 4.00 2.50 09/15/21 09/15/21 09/15/21 09/15/21 15:43 15:49 18:36 18:46 Temp 36.8 Pulse 124 Pulse Ox 96 94 O2 Delivery Nasal Cannula Nasal Cannula Nasal Cannula O2 Flow Rate 4.00 3.00 2.50 FiO2 36 09/15/21 09/15/21 09/15/21 19:25 20:10 20:17 Temp 37.0 Pulse 94 99 Resp 16 B/P (MAP) 97/60 (72) Pulse Ox 94 94 O2 Delivery Nasal Cannula Nasal Cannula O2 Flow Rate 3.00 2.50 Capillary Refill : Less Than 3 Seconds Blood Pressure Mean: 99 Progress Note : Time: 14:26 Progress Note Septic work-up was pursued. Patient was given Tylenol for fever. A. fib RVR resolved without any additional treatment. Blood cultures and lactic acid were drawn after pneumonia was identified on chest x-ray. Zosyn was given for initial treatment of pneumonia. Troponin was minimally elevated. Aspirin was administered and a repeat troponin is pending. Patient is being admitted to Dr. Maldonado, and case was reviewed with him. Dr. Reed presented to the ER to see the patient. BNP was notably elevated. Lasix 20 mg was administered along with potassium chloride 20 mEq orally. ECG Initial ECG Impression Date: Sep 15, 2021 Initial ECG Impression Time: 11:00 Initial ECG Rate: 132 Initial ECG Rhythm: A Fib/Flutter Comment Atrial fibrillation with RVR. ST depression in lateral leads. Possible LVH by voltage. Diagnostic Imaging Diagonstic Imaging: Xray Plain Films/CT/US/NM/MRI: chest Comments Chest x-ray viewed by me and report reviewed. Departure Communication (Admissions) Time/Spoke to Admitting Phy: 13:55 Dr. Maldonado Time/Spoke to Consulting Phy: 14:05 Dr. Reed Impression Primary Impression: Bilateral pneumonia Qualified Codes: J18.9 - Pneumonia, unspecified organism Additional Impressions: COPD exacerbation CHF exacerbation Qualified Codes: I50.23 - Acute on chronic systolic (congestive) heart failure Elevated troponin Hypoxia Disposition: ADMITTED INPATIENT Condition: Improved Admissions Decision to Admit Reason: Admit from ER (General) Decision to Admit/Date: Sep 15, 2021 Time/Decision to Admit Time: 13:55 Departure-Patient Inst. Referrals: RUBA IRENE MD (PCP) Primary Care Physician SHOLA PACHECO (Family) Primary Care Physician JOANN CONKLIN MD Sep 15, 2021 14:11
[2021-09-15] MEDS ORDERED: ASPIRIN 81 MG CHEW (CHILDREN'S ASA) PO ONE (14:15)
--- NOTE | 2021-09-15 14:40 | Consultation-Cardiology ---
HPI-Cardiology Cardiology Consultation Date of Consultation 09/15/21 Date of Admission Time Seen by Provider: 14:35 Indication: Chest pain HPI 71-year-old lady with history of congestive heart failure, chronic left ventricular systolic dysfunction, nonischemic cardiomyopathy. Started to have increasing chest pain and shortness of breath. Came into the emergency room and noted to have elevated BNP and slight elevation in troponin. Currently no active chest pain, chest x-ray showed pulmonary infiltrate with questionable pneumonia. Patient was having atrial fibrillation with rapid ventricular response and converted spontaneously to sinus rhythm. Home Medications & Allergies Allergies: Coded Allergies: Sulfa (Sulfonamide Antibiotics) (Verified Allergy, Unknown, 07/07/15) Tetracyclines (Verified Allergy, Unknown, 07/07/15) Home Medication List Reviewed: Yes [id number] Hx Patient Social History Marital Status: Type Used: Cigarettes Have you traveled recently?: No Alcohol Use?: No Past Medical History Discussed below Family Medical History Significant Family History: No Pertinent Family Hx Family Medical Hx Noncontributory Family History: Patient reports no known family medical history. Review of Systems-General Review of Systems Constitutional: see HPI, malaise EENTM: no symptoms reported, eye pain Respiratory: see HPI, cough, dyspnea on exertion; No hemoptysis, No orthopnea, No phlegm, No short of breath, No stridor, No wheezing, No other Cardiovascular: see HPI, chest pain; No edema, No Hx of Intervention, No palpitations, No syncope, No vascular heart diseas, No other Gastrointestinal: no symptoms reported Genitourinary: no symptoms reported : No Musculoskeletal: no symptoms reported Skin: no symptoms reported Psychiatric/Neurological: No Symptoms Reported Reviewed Test Results Reviewed Test Results Lab Laboratory Tests Test 09/15/21 10:50 09/15/21 14:05 Range/Units White Blood Count 10.0 4.3-11.0 10^3/uL Red Blood Count 3.31 L 3.80-5.11 10^6/uL Hemoglobin 9.1 L 11.5-16.0 g/dL Hematocrit 30 L 35-52 % Mean Corpuscular Volume 90 80-99 fL Mean Corpuscular Hemoglobin 28 25-34 pg Mean Corpuscular Hemoglobin Concent 31 L 32-36 g/dL Red Cell Distribution Width 15.0 H 10.0-14.5 % Platelet Count 436 H 130-400 10^3/uL Mean Platelet Volume 11.2 9.0-12.2 fL Immature Granulocyte % (Auto) 1 % Neutrophils (%) (Auto) 65 42-75 % Lymphocytes (%) (Auto) 24 12-44 % Monocytes (%) (Auto) 7 0-12 % Eosinophils (%) (Auto) 3 0-10 % Basophils (%) (Auto) 0 0-10 % Neutrophils # (Auto) 6.4 1.8-7.8 10^3/uL Lymphocytes # (Auto) 2.4 1.0-4.0 10^3/uL Monocytes # (Auto) 0.7 0.0-1.0 10^3/uL Eosinophils # (Auto) 0.3 0.0-0.3 10^3/uL Basophils # (Auto) 0.0 0.0-0.1 10^3/uL Immature Granulocyte # (Auto) 0.1 0.0-0.1 10^3/uL Prothrombin Time 17.6 H 12.2-14.7 SEC INR Comment 1.4 0.8-1.4 Activated Partial Thromboplast Time 37 H 24-35 SEC Sodium Level 142 135-145 MMOL/L Potassium Level 3.6 3.6-5.0 MMOL/L Chloride Level 106 98-107 MMOL/L Carbon Dioxide Level 23 21-32 MMOL/L Anion Gap 13 5-14 MMOL/L Blood Urea Nitrogen 18 7-18 MG/DL Creatinine 0.81 0.60-1.30 MG/DL Estimat Glomerular Filtration Rate 77 BUN/Creatinine Ratio 22 Glucose Level 82 70-105 MG/DL Lactic Acid Level 1.29 0.50-2.00 MMOL/L Calcium Level 9.3 8.5-10.1 MG/DL Corrected Calcium 9.7 8.5-10.1 MG/DL Magnesium Level 1.7 1.6-2.4 MG/DL Total Bilirubin 0.3 0.1-1.0 MG/DL Aspartate Amino Transf (AST/SGOT) 11 5-34 U/L Alanine Aminotransferase (ALT/SGPT) 12 0-55 U/L Alkaline Phosphatase 76 40-136 U/L Myoglobin 31.5 10.0-92.0 NG/ML Troponin I 0.034 H <0.028 NG/ML C-Reactive Protein High Sensitivity 5.06 H 0.00-0.50 MG/DL B-Type Natriuretic Peptide 1237.5 H <100.0 PG/ML Total Protein 6.6 6.4-8.2 GM/DL Albumin 3.5 3.2-4.5 GM/DL Procalcitonin 0.03 <0.10 NG/ML Influenza Type A (RT-PCR) Not Detected Not Detecte Influenza Type B (RT-PCR) Not Detected Not Detecte SARS-CoV-2 RNA (RT-PCR) Not Detected Not Detecte Physical Exam Physical Exam Vital Signs Vital Signs - First Documented 09/15/21 10:43 Temp 36.8 Pulse 124 Resp 27 B/P (MAP) 115/91 (99) Pulse Ox 96 O2 Delivery Nasal Cannula O2 Flow Rate 4.00 Capillary Refill : Less Than 3 Seconds Height, Weight, BMI Height: 5'67.00" Weight: 131lbs. 2.0oz. 59.325775bz; 17.00 BMI Method: General Appearance: WD/WN, Mild Distress Eyes: Bilateral Eye Normal Inspection, Bilateral Eye PERRL, Bilateral Eye EOMI HEENT: PERRL/EOMI, Normal ENT Inspection Neck: Normal Inspection; No JVD Respiratory: Lungs Clear, No Accessory Muscle Use, Decreased Breath Sounds, Other (Prolonged expiratory phase with accessory muscle use during expiration) Cardiovascular: Regular Rate, Rhythm, No Edema, Systolic Murmur Gastrointestinal: Non Tender, Soft Back: Normal Inspection, No CVA Tenderness, No Vertebral Tenderness Extremity: Normal Inspection, Non Tender, No Pedal Edema Neurologic/Psychiatric: Alert, Oriented x3, No Motor/Sensory Deficits, integration solution architect II- XII Norm as Tested, Other (Anxious) Skin: Normal Color, Warm/Dry Lymphatic: No Adenopathy A/P-Cardiology Assessment/Plan Chest pain nonspecific etiology, atypical in presentation, reporting some discomfort in the retrosternal area probably secondary to tachycardia with atrial fibrillation Paroxysmal atrial fibrillation, converted to sinus rhythm in the emergency room. History of paroxysmal atrial fibrillation with difficulty to achieve adequate heart rate control on a maximum Cardizem drip and IV Lopressor. Converted to sinus rhythm on amiodarone during her previous admission in July 2021. Currently in sinus rhythm. Mild elevation in troponin level, probably type II myocardial infarction due to increased demand with her atrial fibrillation rapid ventricular response. Shortness of breath, acute exacerbation of COPD. Currently on nasal cannula, managed and monitored by primary care team Congestive heart failure, acute on chronic left ventricular systolic dysfunct ion, nonischemic cardiomyopathy, last echocardiogram was done in September 2020 showing ejection fraction 45 to 50%. Continue to monitor Coronary artery disease, moderate for cardiac catheterization done in June 2015. Continue to monitor troponin level. Hypertension, restart home medication monitor blood pressure Hyperlipidemia, intolerant to statin. Intolerant to fenofibrate. History of alcoholism. Anxiety and agitation. History of cerebral aneurysm, she was evaluated in [place] by Dr. Troy clifford him had cerebral angiography and patient reports that she was advised to have conservative management Hypothyroidism, followed and managed by primary care physician Moderate bilateral carotid stenosis. Continue to monitor History of tobaccoism History of alcoholism TRES GASCA MD Sep 15, 2021 14:40
[2021-09-15 15:30] VITALS: BP 104/66
[2021-09-15 15:43] VITALS: BP 115/91
[2021-09-15] MEDS ORDERED: RT-ALBUTEROL/IPRATROPIUM 3 ML (DUONEB) VIAL INH PRN (16:00)
[2021-09-15 16:03] LABS: FREE T4 (FREE THYROXINE) 1.34 NG/DL (0.70-1.48)
[2021-09-15] MEDS ORDERED: CATHETER FLUSH 10 ML SYR IVP PRN (16:15)
[2021-09-15] MEDS ORDERED: ONDANSETRON 4 MG/2 ML (SDV) Z0FRAN IV PRN ×2 (16:15→20:15)
[2021-09-15] MEDS: ENOXAPARIN 60 MG/0.6 ML (LOVENOX) SYR SC SCH (16:31)
[2021-09-15] MEDS: FUROSEMIDE 40 MG/4 ML INJ (LASIX) IVP SCH (16:31)
[2021-09-15] MEDS: RT-ALBUTEROL/IPRATROPIUM 3 ML (DUONEB) VIAL INH SCH ×2 (18:46→21:57)
[2021-09-15 20:10] VITALS: BP 97/60
[2021-09-15] MEDS ORDERED: ACETAMINOPHEN 325 MG TABLET PO PRN (20:15)
[2021-09-15] MEDS ORDERED: ANTACID SUSP 30 ML UDC (MYLANTA) PO PRN (20:15)
[2021-09-15] MEDS ORDERED: diphenhydrAMINE 25 MG TAB (BENADRYL) PO PRN (20:15)
[2021-09-15] MEDS ORDERED: MELATONIN 3 MG TABLET PO PRN (20:15)
[2021-09-15] MEDS ORDERED: polyethylene glycoL POWDER 17 GM (MIRALAX) PACK PO PRN (20:15)
[2021-09-15] MEDS ORDERED: ONDANSETRON 4 MG (ZOFRAN) ORAL DISSOLVE TAB PO PRN (20:15)
[2021-09-15] MEDS: PIPERACILLIN SODIUM/TAZOBACTAM 4.5 GM in NS (IVPB) 100 ML IV SCH (20:38)
[2021-09-15] MEDS: DRONEDARONE 400 MG TABLET PO SCH (20:39)
[2021-09-15] MEDS: CATHETER FLUSH 10 ML SYR IVP SCH (21:45)
[2021-09-16] VITALS (8 sets, daily range): BP systolic 80–134; BP diastolic 50–85
[2021-09-16] MEDS: RT-ALBUTEROL/IPRATROPIUM 3 ML (DUONEB) VIAL INH SCH ×3 (02:52→22:50)
[2021-09-16] MEDS: ENOXAPARIN 60 MG/0.6 ML (LOVENOX) SYR SC SCH ×2 (03:28→14:53)
[2021-09-16] MEDS ORDERED: NS IV 500 ML 500 ML IV SCH (04:15)
[2021-09-16] MEDS: PIPERACILLIN SODIUM/TAZOBACTAM 4.5 GM in NS (IVPB) 100 ML IV SCH ×3 (04:50→20:41)
[2021-09-16 05:59] LABS: BASOPHILS % (AUTO) 0 % (0-10); EOSINOPHILS # (AUTO) 0.4 10^3/uL (0.0-0.3); EOSINOPHILS % (AUTO) 5 % (0-10); HEMATOCRIT 28 % (35-52); HEMOGLOBIN 8.6 g/dL (11.5-16.0); LYMPHOCYTES # (AUTO) 1.4 10^3/uL (1.0-4.0); LYMPHOCYTES % (AUTO) 19 % (12-44); MEAN CORPUSCULAR HEMOGLOBIN 27 pg (25-34); MEAN CORPUSCULAR HGB CONC 31 g/dL (32-36); MEAN CORPUSCULAR VOLUME 89 fL (80-99); MEAN PLATELET VOLUME 10.4 fL (9.0-12.2); MONOCYTES # (AUTO) 0.7 10^3/uL (0.0-1.0); MONOCYTES % (AUTO) 9 % (0-12); NEUTROPHILS % (AUTO) 66 % (42-75); PLATELET COUNT 403 10^3/uL (130-400); WHITE BLOOD COUNT 7.6 10^3/uL (4.3-11.0)
[2021-09-16 06:11] LABS: POTASSIUM 3.1 MMOL/L (3.6-5.0)
[2021-09-16 06:12] LABS: CALCIUM 8.7 MG/DL (8.5-10.1)
[2021-09-16 06:17] LABS: CREATININE SERUM 0.93 MG/DL (0.60-1.30)
[2021-09-16] MEDS: FUROSEMIDE 40 MG/4 ML INJ (LASIX) IVP SCH ×2 (06:17→17:04)
[2021-09-16] MEDS: CATHETER FLUSH 10 ML SYR IVP SCH ×3 (06:17→20:44)
[2021-09-16 06:20] LABS: MAGNESIUM 1.5 MG/DL (1.6-2.4)
[2021-09-16] MEDS: POTASSIUM CL 10MEQ/50ML IVPB 50 ML IV SCH ×5 (06:52→12:20)
[2021-09-16] MEDS: KCL 20 MEQ TAB (K-DUR) PO SCH (06:53)
[2021-09-16] MEDS: MAGNESIUM 1 GM/100 ML IVPB 100 ML IV SCH ×3 (06:53→11:20)
--- NOTE | 2021-09-16 07:57 | Diagnostic Imaging Report ---
CHEST 1 VIEW, AP/PA ONLY Indication: Hypoxia Comparison: 09/15/2021 Findings: No change in bilateral multifocal heterogeneous pulmonary consolidations, greatest in lung bases. Small left pleural effusion likely persists. No pneumothorax. Stable cardiac silhouette. Impression: 1. No change in bilateral multifocal consolidations. Dictated by: Dictated on workstation # [id number]
--- NOTE | 2021-09-16 08:18 | Cardiology Progress Note ---
Subjective Date Seen by Provider: Sep 16, 2021 Time Seen by Provider: 08:13 Subjective/Events-last exam Patient was seen at bedside laying down comfortably Still having significant dyspnea maintained on Vapotherm Review of Systems General: No Chills, No Night Sweats; Fatigue, Malaise; No Appetite, No Other HEENT: No Head Aches, No Visual Changes, No Eye Pain, No Ear Pain, No Dysphasia, No Sinus Congestion, No Post Nasal Drip, No Sore Throat, No Other Pulmonary: Dyspnea; No Cough, No Pleuritic Chest Pain, No Other Cardiovascular: No: Chest Pain, Palpitations, Orthopnea, Paroxysmal Noc. Dyspnea, Edema, Lt Headedness, Other Focused Exam Lactate Level 09/15/21 10:50: Lactic Acid Level 1.29 Objective-Cardiology Exam Last Set of Vital Signs Vital Signs 09/15/21 09/16/21 09/16/21 09/16/21 15:43 07:25 07:39 07:54 Temp 37.3 Pulse 92 Resp 16 B/P (MAP) 129/66 (87) Pulse Ox 97 O2 Delivery Nasal Cannula O2 Flow Rate 2.00 FiO2 36 I&O Intake and Output 09/16/21 00:00 Intake Total 570 ml Output Total 950 ml Balance -380 ml Intake Oral 570 ml Output Urine Total 950 ml # Voids 2 Daily Weight Change Unsure General: Alert, Oriented X3, Cooperative HEENT: Atraumatic, PERRLA Neck: Supple, No JVD, No Thyromegaly Lungs: Normal Air Movement, Other (Bilateral rhonchi) Heart: Regular Rate, Normal S1, Normal S2, No Murmurs Abdomen: Normal Bowel Sounds, Soft, No Tenderness, No Hepatosplenomegaly, No Masses Extremities: No Clubbing, No Cyanosis, No Edema, Normal Pulses, No Tenderness/Swelling Skin: No Rashes, No Breakdown, No Significant Lesion Neuro: Normal Gait, Normal Speech, Strength at 5/5 X4 Ext, Normal Tone, Sensation Intact Psych/Mental Status: Mental Status NL, Mood NL Results Lab Laboratory Tests 09/15/21 10:50 09/16/21 05:22 A/P-Cardiology Admission Diagnosis Chest pain Type II myocardial infarction Paroxysmal atrial fibrillation Dyspnea Assessment/Plan Chest pain nonspecific etiology, atypical in presentation, reporting some discomfort in the retrosternal area probably secondary to tachycardia with atrial fibrillation Paroxysmal atrial fibrillation, converted to sinus rhythm in the emergency room. History of paroxysmal atrial fibrillation with difficulty to achieve adequate heart rate control on a maximum Cardizem drip and IV Lopressor. Converted to sinus rhythm on amiodarone during her previous admission in July 2021. Currently in sinus rhythm. I started her on Multaq and I will evaluate tolerance and response Started on Lovenox 50 mg twice daily, planning to switch her to Xarelto if she is tolerating anticoagulation Anemia, worsening H&H. Maintained on Lovenox, I will evaluate stool for occult blood prior to initiating Xarelto Gouty arthritis, arthritic pain, requesting pain medication. We discussed the importance of avoiding NSAIDs due to her anticoagulation and anemia Mild elevation in troponin level, probably type II myocardial infarction due to increased demand with her atrial fibrillation rapid ventricular response. Shortness of breath, acute exacerbation of COPD. Acute respiratory insufficiency, improving. Managed by medical team Congestive heart failure, acute on chronic left ventricular systolic dysfunction, nonischemic cardiomyopathy, last echocardiogram was done in July 2021 showing ejection fraction 45 to 50%, PA pressure 25 to 30 mmHg, aortic valve sclerosis without stenosis Coronary artery disease, moderate for cardiac catheterization done in June 2015. Conservative management is recommended Hypertension, monitor blood pressure Hyperlipidemia, intolerant to statin. Intolerant to fenofibrate. History of alcoholism. Anxiety and agitation. History of cerebral aneurysm, she was evaluated in [place] by Dr. Troy Yu him had cerebral angiography and patient reports that she was advised to have conservative management Hypothyroidism, followed and managed by primary care physician Moderate bilateral carotid stenosis. Continue to monitor History of tobaccoism History of alcoholism TRES GASCA MD Sep 16, 2021 08:18
[2021-09-16] MEDS: dilTIAZem120 MG (CARDIZEM CD) CAP PO SCH (09:07)
[2021-09-16] MEDS: ASPIRIN E.C. 81 MG (ECOTRIN) TAB PO SCH (09:07)
[2021-09-16] MEDS ORDERED: MIRT-68 PO (09:25)
[2021-09-16] MEDS ORDERED: POLY17PO6 PO (09:25)
[2021-09-16] MEDS ORDERED: ACET325T38 PO (09:25)
[2021-09-16] MEDS ORDERED: AMLO-250 PO (09:25)
[2021-09-16] MEDS ORDERED: APIX5TAB PO (09:25)
[2021-09-16] MEDS ORDERED: MTP25TSR PO (09:25)
[2021-09-16] MEDS ORDERED: COLC0.6T53 PO (09:25)
[2021-09-16] MEDS: DRONEDARONE 400 MG TABLET PO SCH ×2 (10:07→20:40)
[2021-09-16] MEDS ORDERED: COLCHICINE 0.6 MG (COLCRYS) TABLET PO ONE (10:30)
--- NOTE | 2021-09-16 11:01 | Occupational Therapy Eval ---
OT Evaluation-General/PLF Medical Diagnosis Admission Date Sep 15, 2021 at 13:55 Medical Diagnosis: PNA Onset Date: Sep 15, 2021 Therapy Diagnosis Therapy Diagnosis: decreased ADL status Height/Weight Height (Feet): 5 Height (Inches): 67.00 Weight (Pounds): 131 Weight (Ounces): 2.0 Precautions Precautions/Isolations: Fall Prevention, Standard Precautions Referral Physician: Erica Referral Reason: Evaluation/Treatment Medical History Pertinent Medical History: Atrial Fib, Arthritis, COPD, HTN Additional Medical History CHF, chronic L ventricular systolic dysfunction, cardiomyopathy Current History ED c/o SOB and chest pain Social History Home: Skilled Nursing ADL-Prior Level of Function SCALE: Activities may be completed with or without assistive devices. 7-Blcwucoaws-bwsroyq completes the activity by him/herself with no assistance from a helper. 5-Set-up or Clean-up Assistance-helper sets up or cleans up; patient completes activity. [place] assists only prior to or following the activity. 4-Supervision or Touching Assistance-helper provides verbal cues and/or t ouching/steadying and/or contact guard assistance as patient completes activity. Assistance may be provided throughout the activity or intermittently. 3-Partial/Moderate Assistance-helper does LESS THAN HALF the effort. [place] lifts, holds or supports trunk or limbs, but provides less than half the effort. 2-Substantial/Maximal Assistance-helper does MORE THAN HALF the effort. [place] lifts or holds trunk or limbs and provides more than half the effort. 4-Ozscgtqeb-vynuta does ALL the effort. Patient does none of the effort to complete the activity. Or, the assistance of 2 or more helpers is required for the patient to complete the activity. If activity was not attempted, code reason: 7-Patient Refused. 9-Not Applicable-not attempted and the patient did not perform the activity before the current illness, exacerbation or injury. 10-Not Attempted due to Environmental Limitations-(lack of equipment, weather restraints, etc.). 88-Not Attempted due to Medical Conditions or Safety Concerns. ADL PLOF Comments Pt reports using a walker for functional mobility, but a w/c when she is in the bathroom. She indicates staff at [facility] assist her with ADLs She states she was having therapy at [facility], primarily focusing on LE strengthening/mobility. Self Care: Needed Some Help Functional Cognition: Unknown OT Current Status Subjective Pt in bed, agreeable to OT tx. Current Hand Dominance: Right Upper Extremity ROM WFL, BUE shoulder flexion to approx 150 degrees Upper Extremity Coordination WFL Upper Extremity Sensation WFL Upper Extremity Strength LUE grossly 3+/5, RUE not tested due to pt refusal stating she has gout in R elbow, wrist/hand. ADL-Treatment Eating (QC): 6 (per pt report) Lower Body Dressing (QC): 7 On/Off Footwear (QC): 7 Toileting Hygiene (QC): 1 (total assist bed level, pt has purewick) Other Treatments Pt in bed, agreeable to OT evaluation. Pt educated pt on purpose and benefit of OT, pt provided information about PLOF and participated in UE screen. Pt unable to tell if she was incontinent of urine, required total assist to check her brief. Pt was dry, purewick in place. Pt adamantly refused donning gripper socks, states she hates these socks, and they hurt her feet due to gout. Pt asked this therapist to don for her, but OT encouraged pt to complete task herself as this was part of OT assessment, pt again refused. Pt refused UE exercises, declined needing to toilet, and declined ADLs. Pt agreeable to OT tx tomorrow in order to focus on self care and UE strengthening. Post tx, pt in bed, call light in reach and all needs met. Education OT Patient Education: Correct positioning, Energy conservation, Modified ADL techniques, Progress toward Goal/Update tx plan, Purpose of tx/functional activities, Rehab process Teaching Recipient: Patient Teaching Methods: Discussion Response to Teaching: Verbalize Understanding OT Longterm Goals Web Operations Administrator Goals Time Frame: September 24, 2021 Eating (QC): 6 Oral Hygiene (QC): 5 Toileting Hygiene (QC): 4 Shower/Bathe Self (QC): 3 Upper Body Dressing (QC): 4 Lower Body Dressing (QC): 3 On/Off Footwear (QC): 3 Additional Goals: 1-Demonstrate ADL Tasks, 2-Verbalize Understanding, 3- ImproveStrength/Haroldo 1=Demonstrate adherence to instructed precautions during ADL tasks. 2=Patient will verbalize/demonstrate understanding of assistive devices/modifications for ADL. 3=Patient will improve strength/tolerance for activity to enable patient to perform ADL's. OT Education/Plan Problem List/Assessment Assessment: Decreased Activ Tolerance, Decreased UE Strength, Impaired Funct Balance, Impaired I ADL's, Impaired Self-Care Skills Discharge Recommendations Plan/Recommendations: Continue POC Therapy Discharge Recommendati: Other, See Comments (SNF) Treatment Plan/Plan of Care Treatment,Training & Education: Yes Patient would benefit from OT for education, treatment and training to promote independence in ADL's, mobility, safety and/or upper extremity function for ADL's. Plan of Care: ADL Retraining, Functional Mobility, UE Funct Exercise/Act Treatment Duration: September 24, 2021 Frequency: 3 times per week (3-5 times per week) Rehab Potential: Guarded Time/GCodes Start Time: 10:35 Stop Time: 10:45 Total Time Billed (hr/min): 10 Billed Treatment Time 1, DANAE WHEAT OT Sep 16, 2021 11:01
--- NOTE | 2021-09-16 11:11 | Physical Therapy Evaluation ---
PT Evaluation-General Medical Diagnosis Admission Date Sep 15, 2021 at 13:55 Medical Diagnosis: PNA Onset Date: Sep 15, 2021 Therapy Diagnosis Therapy Diagnosis: debility/weakness Height/Weight Height (Feet): 5 Height (Inches): 67.00 Weight (Pounds): 131 Weight (Ounces): 2.0 Precautions Precautions/Isolations: Fall Prevention, Standard Precautions Referral Physician: Erica Reason for Referral: Evaluation/Treatment Medical History Pertinent Medical History: Atrial Fib, Arthritis, COPD, HTN, PVD [facility], SOA and fever Reviewed History: Yes Social History Home: Custodial Prior Prior Level of Function SCALE: Activities may be completed with or without assistive devices. 1-Lvjbajhrjo-mimeqnb completes the activity by him/herself with no assistance from a helper. 5-Set-up or Clean-up Assistance-helper sets up or cleans up; patient completes activity. [place] assists only prior to or following the activity. 4-Supervision or Touching Assistance-helper provides verbal cues and/or touching/steadying and/or contact guard assistance as patient completes activity. Assistance may be provided throughout the activity or intermittently. 3-Partial/Moderate Assistance-helper does LESS THAN HALF the effort. [place] lifts, holds or supports trunk or limbs, but provides less than half the effort. 2-Substantial/Maximal Assistance-helper does MORE THAN HALF the effort. [place] lifts or holds trunk or limbs and provides more than half the effort. 4-Zmqwcgdrm-aklttm does ALL the effort. Patient does none of the effort to complete the activity. Or, the assistance of 2 or more helpers is required for the patient to complete the activity. If activity was not attempted, code reason: 7-Patient Refused. 9-Not Applicable-not attempted and the patient did not perform the activity be fore the current illness, exacerbation or injury. 10-Not Attempted due to Environmental Limitations-(lack of equipment, weather restraints, etc.). 88-Not Attempted due to Medical Conditions or Safety Concerns. Bed Mobility: 3 Transfers (B,C,W/C): 3 Gait: 3 Stairs: 9 Indoor Mobility (Ambulation): Needed Some Help Stairs: Not Applicalbe Prior Devices Use: Walker PT Evaluation-Current Subjective Patient agrees to PT. Objective Patient Orientation: Person Attachments: Oxygen, IV ROM/Strength ROM Lower Extremities bilateral LE WFL Strength Lower Extremities 3/5 grossly bilateral LE Integumentary/Posture Bladder Incontinence: Yes Posture slightly kyphotic Neuromuscular (Tone, Coordination, Reflexes) diminished coordination Sensory Vision: Functional Hand Dominance: Right Transfers Lying to Sitting/Side of Bed(Q: 3 Sit to Stand (QC): 3 Chair/Cjj-xc-Owwus Xfer(QC): 3 Gait Mode of Locomotion: Walk Anticipated Mode of Locomotion: Walk Walk 10 feet (QC): 3 Walk 50 ft with 2 Turns(QC): 88 Walk 150 ft (QC): 88 Distance: 15' Gait Assistive Device: FWW Comments/Gait Description unsteady due to weakness Balance Sitting Static: Normal Sitting Dynamic: Normal Standing Static: Fair Standing Dynamic: Poor Assessment/Needs Patient limited by weakness and confusion. Patient displayed unsteady balance with gait with PT correct. Increase activity as tolerated by patient. Rehab Potential: Guarded PT [facility] Goals [facility]ci Goals PT Mechanical Engineering Professor Goals Time Frame: September 25, 2021 Roll Left & Right (QC): 4 Sit to Lying (QC): 4 Lying-Sitting on Side/Bed(QC): 4 Sit to Stand (QC): 4 Chair/Sct-hy-Gkwzl Xfer(QC): 4 Toilet Transfer (QC): 4 Walk 10 feet (QC): 4 Walk 50ft with 2 Turns (QC): 4 PT Plan Problem List Problem List: Activity Tolerance, Functional Strength, Safety, Balance, Gait, Transfer, Bed Mobility Treatment/Plan Treatment Plan: Continue Plan of Care Treatment Plan: Bed Mobility, Education, Functional Activity Haroldo, Functional Strength, Gait, Safety, Therapeutic Exercise, Transfers Treatment Duration: September 25, 2021 Frequency: 6 times per week Estimated Hrs Per Day: .25 hour per day Time/GCodes Time In: 1046 Time Out: 1102 Total Billed Treatment Time: 16 Total Billed Treatment 1 visit EVMod 16 min ASIM STEELE PT Sep 16, 2021 11:11
[2021-09-16] MEDS: ALPRAZolam 0.25 MG (XANAX) TAB PO PRN ×2 (14:53→22:21)
--- NOTE | 2021-09-16 16:55 | History & Physical-Hospitalist ---
History of Present Illness HPI/Chief Complaint Dusty Donis is a 71 year old female with PMH HTN, HLD, CAD, chronic systolic heart failure, AFib on Eliquis, gout, severe protein calorie malnutrition, history of tobacco and alcohol abuse, who presented with shortness of breath. She has been at [facility] due to debility since a hospitalization in July. She had been on oxygen previously but it had been discontinued. She reports cough. She denies fevers and chills. She reports chest pain. She denies nausea and vomiting. She denies diaphoresis. She denies diarrhea. She does not eat much. She asks for a walker. Source: patient Exam Limitations: no limitations Date Seen 09/16/21 Time Seen by a Provider: 10:05 Attending Physician Tomasz Nguyen MD PCP All Coreas MD Referring Physician Date of Admission Sep 15, 2021 at 13:55 Home Medications & Allergies Home Medications Reviewed patient Home Medication Reconciliation performed by pharmacy medication reconciliations detail technician and/or nursing. Patients Allergies have been reviewed. Allergies Allergies Coded Allergies Sulfa (Sulfonamide Antibiotics) (Verified Allergy, Unknown, 09/15/21) Tetracyclines (Verified Allergy, Unknown, 09/15/21) Past Owfdjvr-Uoevwx-Dideht Hx Patient Social History Marrital Status: Tobacco Use?: No Smoking Status: Former Smoker Use of E-Cig and/or Vaping dev: No Substance use?: No Alcohol Use?: No Pt feels they are or have been: No Immunizations Up To Date First/Initial COVID19 Vaccinat: RECEIVED, UNSURE WHEN Second COVID19 Vaccination Pato: RECEIVED, UNSURE WHEN Current Status status: No Advance Directives: Yes Communicates: Verbally Primary Language: Tunisian Preferred Spoken Language: Tunisian Sensory deficits: Vision impairment Implanted or Applied Medical D: None Past Medical History Surgeries: Cardiac (Cardiac catheterization) COPD Atrial Fibrillation, Coronary Artery Disease (Nonobstructive disease), Hypertension, Palpitations, Peripheral Vascular Bladder Infection Arthritis, Gout Hypothyroidsim Hearing Impairment: Hard of Hearing Adverse Reaction/Blood Tranf: No Family Medical History Patient reports no known family medical history. No Pertinent Family Hx Review of Systems Constitutional: no symptoms reported EENTM: no symptoms reported Respiratory: cough, short of breath Cardiovascular: chest pain Gastrointestinal: no symptoms reported Genitourinary: no symptoms reported Musculoskeletal: no symptoms reported Skin: no symptoms reported Psychiatric/Neurological: No Symptoms Reported Physical Exam Physical Exam Vital Signs Vital Signs - First Documented 09/15/21 09/15/21 10:43 15:43 Temp 36.8 Pulse 124 Resp 27 B/P (MAP) 115/91 (99) Pulse Ox 96 O2 Delivery Nasal Cannula O2 Flow Rate 4.00 FiO2 36 Capillary Refill : Less Than 3 Seconds Height, Weight, BMI Height: 5'67.00" Weight: 131lbs. 2.0oz. [id number]; 16.89 BMI Method: General Appearance: No Apparent Distress, Chronically ill, Thin HEENT: PERRL/EOMI, Pharynx Normal Neck: Normal Inspection, Supple Respiratory: Lungs Clear, No Respiratory Distress Cardiovascular: Regular Rate, Rhythm, No Edema, No Murmur Gastrointestinal: Normal Bowel Sounds, Non Tender, Soft Extremity: Normal Inspection, Non Tender, No Pedal Edema Neurologic/Psychiatric: Alert, Oriented x3, Normal Mood/Affect Skin: Normal Color, Warm/Dry Results Results/Procedures Labs Laboratory Tests 09/15/21 10:50 09/16/21 05:22 Patient resulted labs reviewed. Imaging: Reviewed Imaging Report Assessment/Plan Admission Diagnosis Acute respiratory failure with hypoxia Admission Status: Inpatient Order (span 2 midnights) Reason for Inpatient Admission: Respiratory failure Assessment and Plan Acute respiratory failure with hypoxia Sepsis due to pneumonia Chronic systolic heart failure Elevated troponin Chest xray with multifocal pneumonia Procal normal SIRS+ with tachycardia and tachypnea Not given fluids due to heart failure Started on Zosyn Cardiology consulted Paroxysmal atrial fibrillation Cardiology consulted Diltiazem and Multaq Continue Eliquis HTN Holding amlodipine and metoprolol Gout Continue colchicine Severe protein calorie malnutrition Consult dietary Low sodium diet Ensure Continue mirtazapine Debility PT/OT Diagnosis/Problems Diagnosis/Problems (1) Multifocal pneumonia Status: Acute (2) Sepsis due to pneumonia Status: Acute (3) Acute respiratory failure with hypoxia Status: Acute (4) Chronic systolic heart failure Status: Chronic (5) Paroxysmal A-fib Status: Acute (6) HTN (hypertension) Status: Chronic (7) Severe protein-calorie malnutrition Status: Acute (8) Debility Status: Acute (9) Gout Status: Chronic Qualifiers: Gout site: multiple sites Gout etiology: unspecified cause Chronicity: chronic Qualified Codes: [id number] - Idiopathic chronic gout, multiple sites, without tophus (tophi) (10) Elevated troponin Status: Acute TOMASZ NGUYEN MD Sep 16, 2021 16:55
[2021-09-16] MEDS: APIXABAN 5 MG (ELIQUIS) TABLET PO SCH (20:41)
[2021-09-16] MEDS ORDERED: MIRTAZAPINE 15 MG (REMERON) TAB PO SCH (21:00)
[2021-09-17] VITALS: BP 126/60
[2021-09-17 04:00] VITALS: BP 128/71
[2021-09-17] MEDS: PIPERACILLIN SODIUM/TAZOBACTAM 4.5 GM in NS (IVPB) 100 ML IV SCH (04:01)
[2021-09-17] MEDS: FUROSEMIDE 40 MG/4 ML INJ (LASIX) IVP SCH (05:43)
[2021-09-17 06:10] LABS: POTASSIUM 3.7 MMOL/L (3.6-5.0)
[2021-09-17 06:11] LABS: CALCIUM 8.9 MG/DL (8.5-10.1)
[2021-09-17 06:16] LABS: CREATININE SERUM 1.12 MG/DL (0.60-1.30)
[2021-09-17 06:18] LABS: MAGNESIUM 2.1 MG/DL (1.6-2.4)
[2021-09-17] MEDS ORDERED: LEVOTHYROXINE 88 MCG (LEVOTHORID) TAB PO SCH (06:30)
[2021-09-17] MEDS: POTASSIUM CL 10MEQ/50ML IVPB 50 ML IV SCH (06:37)
[2021-09-17] MEDS: MAGNESIUM 1 GM/100 ML IVPB 100 ML IV SCH (06:37)
[2021-09-17] MEDS: KCL 20 MEQ TAB (K-DUR) PO SCH (06:38)
[2021-09-17] MEDS: CATHETER FLUSH 10 ML SYR IVP SCH (06:38)
[2021-09-17] MEDS: RT-ALBUTEROL/IPRATROPIUM 3 ML (DUONEB) VIAL INH SCH (07:35)
[2021-09-17 08:33] VITALS: BP 132/63
--- NOTE | 2021-09-17 08:55 | Physical Therapy Daily Note ---
PT Daily Note-Current Subjective Patient was asleep in bed upon entering. Patient was woken up and compliant to treatment. Pain Location: No Pain Reported Mental Status Patient Orientation: Person, Confused, Place Transfers SCALE: Activities may be completed with or without assistive devices. 0-Bjqfodizsn-vflxtrs completes the activity by him/herself with no assistance from a helper. 5-Set-up or Clean-up Assistance-helper sets up or cleans up; patient completes activity. [place] assists only prior to or following the activity. 4-Supervision or Touching Assistance-helper provides verbal cues and/or touching/steadying and/or contact guard assistance as patient completes activity. Assistance may be provided throughout the activity or intermittently. 3-Partial/Moderate Assistance-helper does LESS THAN HALF the effort. [place] lifts, holds or supports trunk or limbs, but provides less than half the effort. 2-Substantial/Maximal Assistance-helper does MORE THAN HALF the effort. [place] lifts or holds trunk or limbs and provides more than half the effort. 8-Cxnbzbopu-kkbcai does ALL the effort. Patient does none of the effort to complete the activity. Or, the assistance of 2 or more helpers is required for the patient to complete the activity. If activity was not attempted, code reason: 7-Patient Refused. 9-Not Applicable-not attempted and the patient did not perform the activity before the current illness, exacerbation or injury. 10-Not Attempted due to Environmental Limitations-(lack of equipment, weather restraints, etc.). 88-Not Attempted due to Medical Conditions or Safety Concerns. Sit to Stand (QC): 3 Chair/Ffg-sv-Asvuw Xfer(QC): 3 Weight Bearing Right Lower Extremity: Right Full Weight Bearing Left Lower Extremity: Left Full Weight Bearing Gait Training Does the Patient Walk?: Yes Distance: 3ft Gait Assistive Device: FWW min assist Exercises Seated Therapy Exercises: Ankle pumps, Long arc quads Seated Reps: 20 Treatments Transfers, Mobility Assessment Current Status: Poor Progress Patient was able to stand with FWW with min assist. Patient was unsteady while standing, but was able to take a few steps toward chair. Patient did not walk any further due to balance deficits and LE weakness. Patient was left in chair with alarm, call light, tray, and all needs met. PT Detention Goals Tarring Machine Operator Goals PT Detention Goals Time Frame: September 25, 2021 Roll Left & Right (QC): 4 Sit to Lying (QC): 4 Lying-Sitting on Side/Bed(QC): 4 Sit to Stand (QC): 4 Chair/Dvn-fo-Aqybl Xfer(QC): 4 Toilet Transfer (QC): 4 Walk 10 feet (QC): 4 Walk 50ft with 2 Turns (QC): 4 PT Plan Problem List Problem List: Activity Tolerance, Functional Strength, Safety, Balance, Gait, Transfer, Bed Mobility, ROM Treatment/Plan Treatment Plan: Continue Plan of Care Treatment Plan: Bed Mobility, Education, Functional Activity Haroldo, Functional Strength, Gait, Safety, Therapeutic Exercise, Transfers Treatment Duration: September 25, 2021 Frequency: 6 times per week Estimated Hrs Per Day: .25 hour per day Safety Risks/Education Patient Education: Gait Training, Transfer Techniques, Correct Positioning, Safety Issues Teaching Recipient: Patient Teaching Methods: Discussion Response to Teaching: Reinforcement Needed Time/GCodes Time In: 0830 Time Out: 0941 Total Billed Treatment Time: 11 Total Billed Treatment 1 visit FA 11min GEO SAHU PT Sep 17, 2021 08:55
--- NOTE | 2021-09-17 08:59 | Occupational Ther Daily Note ---
OT Current Status-Daily Note Subjective Pt in bed, difficulty keeping her eyes open. Pt agreeable to OT tx with moderate encouragement. Pt resistive to therapy. Mental Status/Objective Patient Orientation: Person, Confused, Place, Situation ADL-Treatment Therapy Code Descriptions/Definitions Functional [place] Measure: 0=Not Assessed/NA 4=Minimal Assistance 1=Total Assistance 5=Supervision or Setup 2=Maximal Assistance 6=Modified [place] 3=Moderate Assistance 7=Complete IndependenceSCALE: Activities may be completed with or without assistive devices. 4-Txgldzzryu-yrnhvhb completes the activity by him/herself with no assistance from a helper. 5-Set-up or Clean-up Assistance-helper sets up or cleans up; patient completes activity. [place] assists only prior to or following the activity. 4-Supervision or Touching Assistance-helper provides verbal cues and/or touching/steadying and/or contact guard assistance as patient completes activity. Assistance may be provided throughout the activity or intermittently. 3-Partial/Moderate Assistance-helper does LESS THAN HALF the effort. [place] lifts, holds or supports trunk or limbs, but provides less than half the effort. 2-Substantial/Maximal Assistance-helper does MORE THAN HALF the effort. [place] lifts or holds trunk or limbs and provides more than half the effort. 8-Izmtfcjww-sqkkth does ALL the effort. Patient does none of the effort to complete the activity. Or, the assistance of 2 or more helpers is required for the patient to complete the activity. If activity was not attempted, code reason: 7-Patient Refused. 9-Not Applicable-not attempted and the patient did not perform the activity before the current illness, exacerbation or injury. 10-Not Attempted due to Environmental Limitations-(lack of equipment, weather restraints, etc.). 88-Not Attempted due to Medical Conditions or Safety Concerns. On/Off Footwear: 4 (supervision at EOB) Toileting Hygiene (QC): 1 (purewick and brief, pt incontinent requiring assistance.) Other Treatment Pt up in recliner, agreeable to OT Tx with moderate encouragement. OT removed purewick, pt's brief dry. Pt encouraged to transfer to EOB, requiring verbal cues and min A. At EOB, pt asks if she was getting a shower right now, pt informed that she was participating in therapy with the goal of getting up to recliner, but her nursing staff can assist her with a shower later. OT handed pt gripper socks, pt declined donning them herself. OT brought one of pt's legs across other knee in figure 4 method. Pt hollered at OT that she didn't need any help, placing that foot back on the ground and switching feet. Pt able to don bilateral gripper socks with supervision. Pt completed sit to stand from EOB, cues for UE placement, then transferred to recliner (min A), cues for safety and positioning. Post tx, pt up in recliner, call light in reach and all needs met, chair alarm activated. Education OT Patient Education: Correct positioning, Energy conservation, Modified ADL techniques, Progress toward Goal/Update tx plan, Purpose of tx/functional activities Teaching Recipient: Patient Teaching Methods: Discussion Response to Teaching: Verbalize Understanding, Reinforcement Needed OT Condenser Tube Tender Goals Prison Goals Time Frame: September 24, 2021 Eating (QC): 6 Oral Hygiene (QC): 5 Toileting Hygiene (QC): 4 Shower/Bathe Self (QC): 3 Upper Body Dressing (QC): 4 Lower Body Dressing (QC): 3 On/Off Footwear (QC): 3 Additional Goals: 1-Demonstrate ADL Tasks, 2-Verbalize Understanding, 3-ImproveStrength/[place] 1=Demonstrate adherence to instructed precautions during ADL tasks. 2=Patient will verbalize/demonstrate understanding of assistive devices/modifications for ADL. 3=Patient will improve strength/tolerance for activity to enable patient to perf orm ADL's. OT Education/Plan Problem List/Assessment Assessment: Decreased Activ Tolerance, Decreased UE Strength, Impaired Funct Balance, Impaired I ADL's, Impaired Self-Care Skills Discharge Recommendations Plan/Recommendations: Continue POC Treatment Plan/Plan of Care Patient would benefit from OT for education, treatment and training to promote independence in ADL's, mobility, safety and/or upper extremity function for ADL's. Plan of Care: ADL Retraining, Functional Mobility, UE Funct Exercise/Act Treatment Duration: September 24, 2021 Frequency: 3 times per week (3-5 times per week) Rehab Potential: Guarded Time/GCodes Start Time: 08:30 Stop Time: 08:41 Total Time Billed (hr/min): 11 Billed Treatment Time 1, DANAE DALAL OT Sep 17, 2021 08:59
[2021-09-17] MEDS ORDERED: COLCHICINE 0.6 MG (COLCRYS) TABLET PO SCH (09:00)
[2021-09-17] MEDS: APIXABAN 5 MG (ELIQUIS) TABLET PO SCH (09:28)
[2021-09-17] MEDS: dilTIAZem120 MG (CARDIZEM CD) CAP PO SCH (09:28)
[2021-09-17] MEDS: ASPIRIN E.C. 81 MG (ECOTRIN) TAB PO SCH (09:29)
[2021-09-17] MEDS: DRONEDARONE 400 MG TABLET PO SCH (09:29)
[2021-09-17] MEDS ORDERED: DRON400T6 PO (11:18)
[2021-09-17] MEDS ORDERED: ASPI-1238 PO (11:18)
[2021-09-17] MEDS ORDERED: DILT-27 PO (11:18)
[2021-09-17] MEDS ORDERED: AMOX1TAB12 PO (11:18)
[2021-09-17] MEDS ORDERED: FURO-125 PO (11:20)
--- NOTE | 2021-09-17 11:29 | Discharge Summary ---
Discharge Summary Reconcile Patient Problems Problems Reviewed?: Yes Hospital Course Hospital Course Date of Admission: Sep 15, 2021 at 13:55 Admission Diagnosis : Acute respiratory failure with hypoxia Family Physician/Provider: Glenny Calixto Date of Discharge: 09/17/21 Discharge Diagnosis: Acute respiratory failure with hypoxia due to pneumonia Hospital Course: Dusty Donis is a 71 year old female who was admitted with acute respiratory failure with hypoxia due to pneumonia. She was started on antibiotics and improved. Cardiology was consulted and assisted with her care. She was treated with diuretics for acute on chronic heart failure with preserved ejection fraction. She had paroxysmal atrial fibrillation and was started on Multaq and Cardizem. Her metoprolol and amlodipine were discontinued. She was discharged back to [facility] for ongoing skilled therapies. 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 Labs and Pending Lab Test: Laboratory Tests 09/17/21 05:40: Sodium Level 143, Potassium Level 3.7, Chloride Level 107, Carbon Dioxide Level 20L, Anion Gap 16H, Blood Urea Nitrogen 16, Creatinine 1.12, Estimat Glomerular Filtration Rate 52, BUN/Creatinine Ratio 14, Glucose Level 82, Calcium Level 8.9, Magnesium Level 2.1 Microbiology 09/15/21 Blood Culture - Preliminary, Resulted No growth Home Meds Active Lasix (Furosemide) 20 Mg Tablet 20 Mg PO DAILY 30 Days Amox Tr-K Clv 875-125 mg Tab (Amoxicillin/Potassium Clav) 875 Mg-125 Mg Tablet 1 Each PO BID 5 Days Aspirin EC (Aspirin) 81 Mg Tablet.dr 81 Mg PO DAILY 30 Days Diltiazem 24Hr ER (Diltiazem HCl) 120 Mg Cap.er.24h 120 Mg PO DAILY 30 Days Multaq (Dronedarone HCl) 400 Mg Tablet 400 Mg PO BID 30 Days Reported Miralax (Polyethylene Glycol 3350) 17 Gram Powd.pack 17 Gm PO DAILY PRN Mirtazapine 15 Mg Tablet 15 Mg PO HS Metoprolol Succinate 25 Mg Tab.er.24h 25 Mg PO DAILY HOLD FOR SBP LESS THAN 100 OR DBP LESS THAN 50 Colcrys (Colchicine) 0.6 Mg Tablet 0.6 Mg PO DAILY Eliquis (Apixaban) 5 Mg Tablet 5 Mg PO BID Amlodipine Besylate 5 Mg Tablet 5 Mg PO DAILY HOLD FOR SBP LESS THAN 100 OR DBP LESS THAN 50 Tylenol (Acetaminophen) 325 Mg Tablet 650 Mg PO Q6H PRN Levothyroxine Sodium 88 Mcg Tablet 88 Mcg PO DAILY Instructions to Patient/Family Assessment/Instructions Take medications as prescribed. Follow up with your PCP and Cardiology. Return with worsening shortness of breath, chest pain, or if you feel like you are getting worse. Follow Up Appt.: next correction rounds [facility] certify that SNF services are required to be given on an inpatient basis because of the above named patient's need for senior care care on a continuing basis for the conditions(s) for which he/she was receiving inpatient hospital services prior to his/her transfer to the SNF. Senior Living Facility Order: Nursing Services, Meat And Poultry Inspector-Evaluate & Treat, Physical Therapy-Evaluate & Treat, Speech Language-Evaluate & Treat Oxygen Delivery Method: Nasal Cannula Oxygen Flow Rate L/min (Range): 2-4 Discharge Diet: Low Sodium Diet Daily Activity as Tolerated: Yes Resuscitation Status: Do Not Resuscitate Tomasz Nguyen Sep 17, 2021 11:21 Discharge Physical Exam General: Alert, Oriented X3, Cooperative, No Acute Distress, Other (chronically ill, thin) HEENT: Atraumatic, EOMI, Mucous Memb Moist/[place] Lungs: Clear to Auscultation, Normal Air Movement Heart: Regular Rate, Normal S1, Normal S2, No Murmurs Abdomen: Normal Bowel Sounds, Soft, No Tenderness Extremities: No Edema, No Tenderness/Swelling Skin: No Rashes, No Significant Lesion Neuro: Normal Speech, Normal Tone Psych/Mental Status: Mental Status NL, Other (flat affect) TOMASZ NGUYEN MD Sep 17, 2021 11:28
[2021-09-17 12:10] VITALS: BP 128/75
--- NOTE | 2021-09-18 10:55 | Physician Query Clarification ---
PQ-Conflicting Diagnosis Admission/Discharge Admission Date: Sep 15, 2021 at 13:55 Discharge Date: Sep 17, 2021 at 12:22 Dr. Nguyen, The medical record reflects the following clinical scenario: History/Risk Factors: Pneumonia, acute hypoxic respiratory failure, HTN w/acute on chronic systolic CHF Clinical Findings: P 124, R 27, T 36.8, WBC 10.0, Lactic acid 1.29, Procalcitonin 0.03 Treatment: IV Piperacillin Question: Do you agree with the impression of the sepsis per H&P. Sepsis was documented in the H&P but was not listed in the DS Please document a response in Progress Note or Discharge Summary. 1. Yes 2. No 3. Other, with explanation of clinical findings 4. Clinically undetermined, no explanation for clinical findings. PHYSICIAN RESPONSE Do you agree w/Consulting Dx?: Yes Please remember a lack of response to the above will prompt a phone page by CDI/Coding staff. In responding to this query, please exercise your independent professional judgment. The purpose of this communication is to more accurately reflect the complexity of your patients condition. The fact that a question is asked does not imply that any particular answer is desired or expected. Thank you for your timely response to this clarification. Requestors name: Molly THIS PHYSICIAN QUERY FORM IS A PERMANENT PART OF THE MEDICAL RECORD MOLLY CASSIDY Sep 18, 2021 10:55 TOMASZ NGUYEN MD September 23, 2021 14:20
== END 2021-09-17 12:22 | DRG 871 ==
LOC: EDUNIT# 10:36 → ER 10:38 → 4TH 13:55
PROVIDERS: ADMIT Internal Medicine; ATTEND Internal Medicine
DX: A41.9 Sepsis, unspecified organism (principal); J18.9 Pneumonia, unspecified organism; J96.01 Acute respiratory failure with hypoxia; I21.A1 Myocardial infarction type 2; E43 Unspecified severe protein-calorie malnutrition; I50.23 Acute on chronic systolic (congestive) heart failure; Z68.1 Body mass index [BMI] 19.9 or less, adult; I42.8 Other cardiomyopathies; J44.0 Chronic obstructive pulmonary disease with (acute) lower respiratory infection; J44.1 Chronic obstructive pulmonary disease with (acute) exacerbation; Z66 Do not resuscitate; Z20.822 Contact with and (suspected) exposure to COVID-19; I11.0 Hypertensive heart disease with heart failure; I48.0 Paroxysmal atrial fibrillation; M10.9 Gout, unspecified; E03.9 Hypothyroidism, unspecified; E78.5 Hyperlipidemia, unspecified; I65.23 Occlusion and stenosis of bilateral carotid arteries; F41.9 Anxiety disorder, unspecified; I25.10 Atherosclerotic heart disease of native coronary artery without angina pectoris; H91.90 Unspecified hearing loss, unspecified ear; F10.21 Alcohol dependence, in remission; Z88.1 Allergy status to other antibiotic agents; Z88.2 Allergy status to sulfonamides
CPT/HCPCS: 36415; 71045; 80048; 80053; 80061; 83605; 83735; 83874; 83880; 84145; 84439; 84443; 84484; 85025; 85610; 85730; 86141; 87040; 87636; 93005; 93041; 94640; 94664; 94760; 94761; 96365; 96375

== ENCOUNTER → 2021-10-21 | Outpatient (CLI) | payer MEDICARE, OTHER ==
[~2021-10-21] MED LIST changes: +ACET325T38 PO; +AMLO-250 PO; +AMOX1TAB12 PO; +APIX5TAB PO; +ASPI-1238 PO; +COLC0.6T53 PO; +DILT-27 PO; +DRON400T6 PO; +FURO-125 PO; +HOLD METFORMIN - RECEIVED CONTRAST 20 ML VIAL IV SCH; +IOHEXOL 350 MG/ML 100 ML (OMNIPAQUE 350) VIAL IV ONE; +MIRT-68 PO; +MTP25TSR PO; +NS 100 ML (IVPB) BAG IV ONE; +NS IV 1000 ML 1,000 ML IV SCH; +PATIENT MAY USE OWN MEDS, ALL PO SCH; +POLY17PO6 PO
[2021-10-21 12:11] LABS: CREATININE SERUM 1.37 MG/DL (0.60-1.30)
--- NOTE | 2021-10-21 13:40 | Diagnostic Imaging Report ---
CLINICAL INDICATION: Patient is here for carotid stenosis. EXAMS: 1: Head CT with and without IV contrast. Auto Exposure Controls were utilized during the CT exam to meet ALARA standards for radiation dose reduction. 2: CT angiogram of the head and neck performed with 100 cc of Omnipaque 350 IV contrast. Sagittal and coronal MIP reformations were created for better visualization of vascular anatomy. COMPARISON: CT angiogram of the neck with contrast dated 08/28/2015. CT angiogram of the chest dated 07/07/2015. FINDINGS: Head CT: There is no CT evidence of acute intracranial process. There is no abnormal IV contrast enhancement. There is brain parenchymal volume loss which appears appropriate for patient's age. There are small patchy areas of low density involving the high posterior left frontal/parietal region involving the centrum semiovale likely representing chronic ischemic changes. There is no hydrocephalus. Basal cisterns are unremarkable. The extracranial soft tissue, skull, and orbits are unremarkable. There is minimal mucosal thickening involving both maxillary sinuses. Mastoid air cells are clear. CT Angiogram: There is dense contrast bolus seen within the left subclavian vein and innominate vein, which causes streak artifact obscuring portions of the aortic arch and proximal great vessels. There is severe stenosis involving the distal right brachiocephalic artery, which extends into the origin of the right subclavian artery and origin of the right common carotid artery. The right subclavian artery is otherwise patent. Origin of the brachiocephalic artery is not completely imaged on this exam. Otherwise, the right brachiocephalic artery is patent. There is an area of moderate stenosis involving the mid right common carotid artery, which has progressed. There is severe stenosis of the origin of the right common carotid artery. The remainder of the right common carotid artery is patent as visualized. There is dense atherosclerotic disease and severe stenosis involving the origin and proximal cervical right ICA. This area of severe stenosis is roughly 2.6 cm in craniocaudal dimension and has progressed in the interim. The remainder of the cervical right ICA is patent. The origin of the left common carotid artery is not completely imaged and cannot be evaluated. There is progression of atherosclerotic disease involving the proximal left common carotid artery with areas of mild stenosis. There is a focal area of moderate stenosis involving the mid left common carotid artery. There is an area of gmbalrlh-bd-ieonvb stenosis of the mid to distal left common carotid artery. There is severe stenosis involving the origin of the left ECA due to dense atherosclerotic calcification. The remainder of the left ECA is patent as visualized. There is severe stenosis involving the origin and proximal left common carotid artery. There is concern for occlusion versus near-complete occlusion of the proximal to mid left cervical ICA with contrast seen extending distal to it. The remainder of the cervical left ICA is patent. There is jnld-mp-yjpyfdnd stenosis involving the cavernous and paraclinoid right ICA regions. There is mild and moderate stenosis involving the left cavernous ICA. There is spezzhie-nv-cdilph stenosis involving the paraclinoid left ICA. The ACAs and distal branches are patent. There is a roughly 3.3 cm vascular outpouching arising from the expected region of the temporal branch of the right M2 MCA and vessel extending from it. This may just represent a vascular infundibulum and is stable. Otherwise, right MCA and distal branches are patent. There is an area of vascular prominence measuring 3 mm in axial dimension in the left M1 MCA genu region representing an aneurysm. This has not significantly changed from the prior study. The remainder of the left MCA and distal branches are patent. There is a roughly 6 mm x 6 mm saccular aneurysm arising from the left ICA terminus region, which extends inferiorly. This aneurysm measures 8 mm x 6 mm in AP x transverse dimensions and 6 mm in craniocaudal dimension. This aneurysm has a stable multilobulated appearance. There is hwlk-bu-ecilazpt narrowing of the origin of the left cervical vertebral artery. The left cervical vertebral artery shows no other significant stenosis. 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 Previously, patient had a very small-caliber right cervical vertebral artery. The cervical right vertebral artery is seen reconstituted just prior to the intradural region at the skull base. The intradural right vertebral artery is patent. There is mild stenosis of the intradural left vertebral artery. The left PICA is patent. Suspected right AICA PICA is noted. The basilar artery is patent. The bilateral superior cerebellar arteries are patent. There is a left posterior communicating artery seen. Bilateral general internal medicine doctor and distal branches are patent. The dural venous sinuses are patent. Neck soft tissue structures show no significant abnormality. Emphysematous lung disease is seen. There is a 10 mm slightly spiculated nodule in the periphery of the right upper lobe. This was not imaged on the prior CT scan. This nodule was not seen on the prior CT angiogram of the chest dated 07/07/2015. IMPRESSION: 1: There is overall interval progression of severe atherosclerotic disease involving the anterior and posterior circulation of the neck and intracranial vascular structures; this is described in detail above. 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 3: Stable 8 mm saccular aneurysm arising from the left ICA terminus extending inferiorly. 4: Stable 3 mm aneurysm in the left MCA genu region. 5: Likely vascular infundibulum involving the right M2 MCA anterior temporal branch region. 6: There is interval development of a 10 mm slightly spiculated nodule in the lateral right upper lobe. Comparison to more recent outside chest CT scans may help better evaluate. If none are available, then PET/CT scan may help better evaluate to exclude malignancy. Dictated by: Dictated on workstation # [id number]
== END ==
LOC: RAD 11:45
PROVIDERS: ATTEND Physician Assistant
DX: I65.23 Occlusion and stenosis of bilateral carotid arteries (principal); I66.9 Occlusion and stenosis of unspecified cerebral artery; I72.3 Aneurysm of iliac artery; I67.1 Cerebral aneurysm, nonruptured; R91.1 Solitary pulmonary nodule; I77.1 Stricture of artery
CPT/HCPCS: 36415; 70496; 70498; 82565; 84520